=== PATIENT | male | born 1960 | race Caucasian/White ===

== ENCOUNTER 2025-05-31 10:33 | Inpatient (IN) ==
--- NOTE | 2025-05-31 11:07 | Emergency Department Note ---
Impression & Plan DKA (diabetic ketoacidosis), Cellulitis, Diabetic ulcer of lower leg, Acute hyperkalemia, Acute alteration in mental status ED Provider Note NAME: BRIAN DHILLON Sr AGE: 65 SEX: M : 1960 ARRIVES VIA: Ambulance INFORMANT: Patient, ED PROVIDER(S): Lars Young DO CHIEF COMPLAINT: Elevated blood sugar HPI: The patient is a 65-year-old male who presented to the emergency department for an evaluation of elevated blood sugar. The patient is currently at a retirement. The patient was noted to have elevated blood sugar. He does take insulin for diabetes. The patient is currently being treated for a left leg fracture. He has a wound on this leg as well. The patient denies having any fever nausea or vomiting. The patient reportedly did have some confusion as well. ROS: See above HPI for pertinent positives & negatives. A total of 10 systems reviewed and were otherwise negative. PAST MEDICAL HISTORY: See Below PAST SURGICAL HISTORY: See Below FAMILY HISTORY: See Below SOCIAL HISTORY: See Below HOME MEDICATIONS: See Below ALLERGIES: See Below VITALS: See Below PHYSICAL EXAMINATION: GENERAL: The patient is awake to verbal commands. He does try to fall asleep rather quickly. EYES: The conjunctivae are clear. The pupils are round and reactive. EARS, NOSE, MOUTH AND THROAT: The nose is without any evidence of any deformity. Mucous membranes are dry. NECK: The neck is nontender and supple. RESPIRATORY: Normal respiratory effort is noted there is no evidence of wheezing rhonchi or rales CARDIOVASCULAR: Regular rate and rhythm noted there no murmurs rubs or gallops normal S1 normal S2. GASTROINTESTINAL: The abdomen is soft and nondistended. There is no tenderness guarding or rigidity elicited. Pedal edema was noted bilaterally. There is erythema MUSCULOSKELETAL/EXTREMITIES: There is no evidence of gross deformity full range of motion is noted in the hips and shoulders. SKIN: No wound dressing on the left leg. There is no crepitus. NEUROLOGIC: Patient is awake and oriented to person place but not time. Strength was symmetric but diminished. MEDICAL DECISION MAKING: The patient is a 65-year-old male who presented to the emergency department from his note. The patient had been noted to have elevated blood sugar. The patient was treated with IV fluids in the emergency department. He was also treated with IV insulin. The patient was found have an ulcer on his lower leg. I do feel this could be the cause of an infection that could be leading to the patient's DKA. He was ordered cultures and ordered antibiotics in emergency department. He was also found have an elevated potassium. I discussed the patient's condition with the on-call [facility] hospitalist. They have agreed to evaluate the patient in the emergency department for further management and disposition. Triage Nursing notes reviewed. Prior medical records reviewed Vital Signs: reviewed and remarkable for tachycardia. Differential diagnosis: Infection, hypoglycemia, electrolyte abnormalities, overdose, toxicologic, cardiac sources, intracerebral event, neurologic, trauma, as well as other pathologies. ER treatment provided: See below Diagnostics interpreted by me: ECG: EKG was obtained in the emergency department. My interpretation is sinus tachycardia at 115 bpm. There is no ectopy noted. Nonspecific ST and T wave abnormalities were noted. No previous tracing was available. Cardiac Monitoring: An order was placed for continuous cardiac monitoring. The monitor shows a rate of 110 bpm with sinus rhythm. Laboratory studies: As stated above and show below. Imaging studies: See below. Radiographic imaging was reviewed by myself Consultation(s): I discussed this case with Dr. Travis [facility] COURSE: Procedures: none Critical Care: I have personally spent greater than 35 minutes of critical care time in the direct management of this patient. This includes bedside care, interpretation of diagnostic studies, and testing, discussion with consultants, patient, and family members, and other required patient management activities. This 35 minutes is in excess of all separately billable procedures. Past Med/Surg History Problem List (Updated 05/31/25 @ 17:12 by Lars Young DO) Acute alteration in mental status (Acute) Acute hyperkalemia (Acute) Diabetic ulcer of lower leg (Acute) Cellulitis (Acute) DKA (diabetic ketoacidosis) (Acute) Hyperosmolar hyperglycemic state (HHS) Low testosterone Hypertension Hyperlipidemia Chronic pain Status post debridement of bone spur Type II diabetes mellitus, uncontrolled (Chronic) Diabetic ulcer of right great toe (Chronic) Surgical History Previous back surgery Family History Mother Uterine cancer Father Diabetes Social History Smoking Status: Never smoker Second Hand Exposure: No; Do You Dip or Chew Tobacco: No; Hx Alcohol Use: No Hx Substance Use: Yes Prescribed Medications: Marijuana Preferred Language: Nepali marital status: Single Current Living Situation: Alone current occupational status: unemployed Feels Safe at Home: Yes Diet: diabetic Do you think of yourself as: straight/heterosexual Gender Identity: Male Allergies Allergies Allergy/AdvReac Type Severity Reaction Status Date / Time cephalexin [From Keflex] Allergy Verified 09/17/23 08:13 duloxetine AdvReac Severe Verified 09/17/23 08:13 dulaglutide [From Trulicity] AdvReac Verified 09/17/23 08:13 empagliflozin AdvReac Verified 09/17/23 08:13 [From Jardiance] losartan AdvReac Verified 09/17/23 08:13 lisinopril AdvReac Uncoded 09/17/23 08:13 Home Meds Home Medications Medication Instructions Recorded Confirmed Insta-Glucose 1 applic buccal DAILY PRN 05/31/25 05/31/25 Hypoglycemia Milk of Magnesia 30 ml PO DAILY PRN Constipation 05/31/25 05/31/25 acetaminophen 325 mg tablet 650 mg PO Q6H PRN Mild Pain (Scale 05/31/25 05/31/25 Score 1-4) acetaminophen 325 mg tablet 650 mg PO Q6H PRN temp>101 05/31/25 05/31/25 allopurinol 100 mg tablet 100 mg PO DAILY 05/31/25 05/31/25 aspirin 81 mg chewable tablet 81 mg PO DAILY 05/31/25 05/31/25 atorvastatin 80 mg tablet 80 mg PO DAILY 05/31/25 05/31/25 bisacodyl 10 mg rectal suppository 10 mg LA DAILY PRN Constipation 05/31/25 05/31/25 (Dulcolax (bisacodyl)) capsaicin 0.1 % topical cream 1 applic topical .DAILY FOR 10 DAYS 05/31/25 05/31/25 carisoprodol 350 mg tablet (Soma) 350 mg PO Q6H PRN muscle pain 05/31/25 05/31/25 clonidine 0.2 mg/24 hr weekly 0.2 mg transdermal .Q Sunday05/31/25 05/31/25 transdermal patch colchicine 0.6 mg tablet 0.6 mg PO Q12H PRN gout flare 05/31/25 05/31/25 duloxetine 20 mg capsule,delayed 20 mg PO DAILY 05/31/25 05/31/25 release finasteride 5 mg tablet 5 mg PO DAILY 05/31/25 05/31/25 furosemide 40 mg tablet 40 mg PO DAILY 05/31/25 05/31/25 gabapentin 800 mg tablet 800 mg PO BID 05/31/25 05/31/25 (Neurontin) glucagon 1 mg injection kit 1 mg IM DAILY PRN Hypoglycemia 05/31/25 05/31/25 insulin glargine 100 unit/mL (3 10 unit subcut DAILY 05/31/25 05/31/25 mL) subcutaneous pen (Lantus Solostar U-100 Insulin) magnesium oxide 500 mg capsule 400 mg PO DAILY 05/31/25 05/31/25 metformin 1,000 mg tablet 1,000 mg PO Q12 05/31/25 05/31/25 metoprolol succinate 25 mg 25 mg PO DAILY 05/31/25 05/31/25 tablet,extended release 24 hr prednisone 10 mg tablet 10 mg PO .DAILY FOR 4 DAYS 05/31/25 05/31/25 quetiapine 25 mg tablet (Seroquel) 25 mg PO DAILY 05/31/25 05/31/25 quetiapine 25 mg tablet (Seroquel) 50 mg PO HS 05/31/25 05/31/25 repaglinide 2 mg tablet 1 mg PO .DAILY BEFORE MEALS 05/31/25 05/31/25 sennosides 8.6 mg-docusate sodium 1 tab-cap PO BID 05/31/25 05/31/25 50 mg tablet (Senna-S) sodium phosphates 19 gram-7 118 ml LA DAILY PRN Constipation 05/31/25 05/31/25 gram/118 mL enema (Enema) spironolactone 25 mg tablet 12.5 mg PO DAILY 05/31/25 05/31/25 tamsulosin 0.4 mg capsule 0.4 mg PO DAILY 05/31/25 05/31/25 tramadol 50 mg tablet 50 mg PO Q4H PRN Pain 05/31/25 05/31/25 Previous Rx's Medication Instructions Recorded blood-glucose meter #1 ea 05/12/21 lancets 30 gauge #100 ea 05/12/21 blood sugar diagnostic #400 ea 01/08/23 Results & Data (ED) Vital Signs Vital Signs - 24 hr 05/31/25 10:39 05/31/25 10:44 05/31/25 10:46 Temperature 36.8 C Temperature Source Oral Pulse Rate 115 H 115 H Pulse Rate [Apical] Pulse Rate from SpO2 Sensor 116 H Pulse Rhythm Regular Pulse Rhythm [Apical] Respiratory Rate 16 28 H Respiratory Effort / Characteristics Non-Labored Spontaneous Respiratory Depth Normal Respiratory Pattern Regular Blood Pressure 134/94 111/84 Blood Pressure [Right Arm] Blood Pressure Mean 105 93 Blood Pressure Mean [Right Arm] Blood Pressure Position [Right Arm] Pulse Oximetry 100 100 Oxygen Delivery Method Nasal Cannula Oxygen Flow Rate 2 Sepsis Recent Fever Within 48 Hours Yes Sepsis New/Unexplained Change in Mental Status Yes Sepsis Action Taken by Nursing Physician Notified 05/31/25 11:00 05/31/25 11:00 05/31/25 11:00 Temperature 36.8 C Temperature Source Oral Pulse Rate 114 H Pulse Rate [Apical] 114 H Pulse Rate from SpO2 Sensor Pulse Rhythm Regular Pulse Rhythm [Apical] Regular Respiratory Rate 25 H 25 H Respiratory Effort / Characteristics Non-Labored Spontaneous Respiratory Depth Normal Respiratory Pattern Regular Blood Pressure 129/94 Blood Pressure [Right Arm] 129/94 Blood Pressure Mean 107 Blood Pressure Mean [Right Arm] 105 Blood Pressure Position [Right Arm] Pulse Oximetry 100 100 Oxygen Delivery Method Nasal Cannula Nasal Cannula Oxygen Flow Rate 2 Sepsis Recent Fever Within 48 Hours Sepsis New/Unexplained Change in Mental Status Sepsis Action Taken by Nursing 05/31/25 11:13 05/31/25 11:25 05/31/25 11:30 Temperature Temperature Source Pulse Rate 114 H 114 H Pulse Rate [Apical] 114 H Pulse Rate from SpO2 Sensor Pulse Rhythm Pulse Rhythm [Apical] Respiratory Rate 20 25 H Respiratory Effort / Characteristics Non-Labored Respiratory Depth Normal Respiratory Pattern Blood Pressure 131/97 Blood Pressure [Right Arm] 129/94 Blood Pressure Mean 108 Blood Pressure Mean [Right Arm] 105 Blood Pressure Position [Right Arm] Pulse Oximetry 100 100 Oxygen Delivery Method Room Air Nasal Cannula Oxygen Flow Rate 2 Sepsis Recent Fever Within 48 Hours Sepsis New/Unexplained Change in Mental Status Sepsis Action Taken by Nursing 05/31/25 12:06 05/31/25 12:30 05/31/25 14:00 Temperature Temperature Source Pulse Rate 109 H 109 H Pulse Rate [Apical] 110 H Pulse Rate from SpO2 Sensor 109 H Pulse Rhythm Pulse Rhythm [Apical] Regular Respiratory Rate 17 26 H 14 Respiratory Effort / Characteristics Non-Labored Spontaneous Respiratory Depth Normal Respiratory Pattern Regular Blood Pressure 122/91 Blood Pressure [Right Arm] 129/91 Blood Pressure Mean 102 Blood Pressure Mean [Right Arm] 103 Blood Pressure Position [Right Arm] Semi-fowlers Pulse Oximetry 100 100 100 Oxygen Delivery Method Nasal Cannula Nasal Cannula Oxygen Flow Rate 2 2 Sepsis Recent Fever Within 48 Hours Sepsis New/Unexplained Change in Mental Status Sepsis Action Taken by Usp Medications Current Medication List: was personally reviewed by me Laboratory Data Attestation: I reviewed the patient's lab results. 05/31/25 10:45 05/31/25 10:45 Lab Results 05/31/25 05/31/25 05/31/25 Range/Units 10:39 10:45 11:20 WBC 7.81 (4.8-10.8) K/ul RBC 4.57 L (4.70-6.10) M/uL Hgb 12.8 L (14.0-18.0) g/dl Hct 41.1 L (42.0-52.0) % MCV 89.9 (80.0-100.0) fL MCH 28.0 (25.0-34.0) pg MCHC 31.1 L (32.0-36.0) g/dL RDW Std Deviation 59.5 H (36.4-46.3) fL RDW Coeff of Celina 18.5 H (11.5-14.5) % Plt Count 284 (130-400) K/uL MPV 11.6 (9.4-12.4) fL Immature Gran % (Auto) 0.5 % Neut % (Auto) 78.4 % Lymph % (Auto) 13.3 % [place] % (Auto) 7.7 % Eos % (Auto) 0.0 % Baso % (Auto) 0.1 % Neut # (Auto) 6.12 (1.40-6.50) K/uL Lymph # (Auto) 1.04 L (1.20-3.40) K/uL [place] # (Auto) 0.60 H (0.11-0.59) K/uL Eos # (Auto) 0.00 (0.00-0.50) K/uL Baso # (Auto) 0.01 (0.00-0.20) K/uL Immature Gran # (Auto) 0.04 (0.01-0.20) K/uL ESR 30 H (0-20) mm/hr VBG pH 7.36 (7.36-7.41) VBG pCO2 40 (38-50) mmHg VBG pO2 30 mmHg VBG HCO3 23 mmol/L VBG O2 Saturation < 60.0 % VBG Base Excess -2.7 mEq/L Sodium 132 L (136-145) mmol/L Potassium 5.7 H (3.5-5.1) mmol/L Chloride 92 L (98-107) mmol/L Carbon Dioxide 22 (21-32) mmol/L Anion Gap 18 H (3-11) BUN 42 H (6-23) mg/dl Creatinine 1.21 (0.6-1.4) mg/dl Est Cr Clr Drug Dosing 69.7 ml/min eGFR 66.86 BUN/Creatinine Ratio 34.7 H (10-20) Glucose 564 H* (70-99(Fasting)) mg/dl POC Glucose 526 H* (70-99) mg/dl Lactate 5.2 H* (0.4-2.0) mmol/L Calcium 9.4 (8.6-10.3) mg/dl Magnesium 2.1 (1.7-2.4) mg/dl Total Bilirubin 1.2 H (0.2-1.0) mg/dl AST 68 H (13-39) U/L ALT 57 H (7-52) U/L Alkaline Phosphatase 107 H (34-104) U/L Ammonia 35.0 (18-72) umol/L Troponin I High Sens 50.1 H* (0-20) pg/ml C-Reactive Protein 4.50 H (0-0.5) mg/dl Total Protein 7.4 (6.0-8.3) gm/dl Albumin 3.6 (3.4-5.0) gm/dl Globulin 3.8 (2.5-4.0) gm/dl Albumin/Globulin Ratio 0.9 (0.9-2) Procalcitonin 0.37 (0-0.5) ng/ml TSH 3.371 (0.300-4.500) uIu/ml 05/31/25 05/31/25 05/31/25 Range/Units 12:06 12:36 13:21 WBC (4.8-10.8) K/ul RBC (4.70-6.10) M/uL Hgb (14.0-18.0) g/dl Hct (42.0-52.0) % MCV (80.0-100.0) fL MCH (25.0-34.0) pg MCHC (32.0-36.0) g/dL RDW Std Deviation (36.4-46.3) fL RDW Coeff of Cleina (11.5-14.5) % Plt Count (130-400) K/uL MPV (9.4-12.4) fL Immature Gran % (Auto) % Neut % (Auto) % Lymph % (Auto) % [place] % (Auto) % Eos % (Auto) % Baso % (Auto) % Neut # (Auto) (1.40-6.50) K/uL Lymph # (Auto) (1.20-3.40) K/uL [place] # (Auto) (0.11-0.59) K/uL Eos # (Auto) (0.00-0.50) K/uL Baso # (Auto) (0.00-0.20) K/uL Immature Gran # (Auto) (0.01-0.20) K/uL ESR (0-20) mm/hr VBG pH (7.36-7.41) VBG pCO2 (38-50) mmHg VBG pO2 mmHg VBG HCO3 mmol/L VBG O2 Saturation % VBG Base Excess mEq/L Sodium (136-145) mmol/L Potassium (3.5-5.1) mmol/L Chloride (98-107) mmol/L Carbon Dioxide (21-32) mmol/L Anion Gap (3-11) BUN (6-23) mg/dl Creatinine (0.6-1.4) mg/dl Est Cr Clr Drug Dosing ml/min eGFR BUN/Creatinine Ratio (10-20) Glucose (70-99(Fasting)) mg/dl POC Glucose 580 H* 561 H* (70-99) mg/dl Lactate (0.4-2.0) mmol/L Calcium (8.6-10.3) mg/dl Magnesium (1.7-2.4) mg/dl Total Bilirubin (0.2-1.0) mg/dl AST (13-39) U/L ALT (7-52) U/L Alkaline Phosphatase (34-104) U/L Ammonia (18-72) umol/L Troponin I High Sens 47.8 H (0-20) pg/ml C-Reactive Protein (0-0.5) mg/dl Total Protein (6.0-8.3) gm/dl Albumin (3.4-5.0) gm/dl Globulin (2.5-4.0) gm/dl Albumin/Globulin Ratio (0.9-2) Procalcitonin (0-0.5) ng/ml TSH (0.300-4.500) uIu/ml 05/31/25 Range/Units 13:31 WBC (4.8-10.8) K/ul RBC (4.70-6.10) M/uL Hgb (14.0-18.0) g/dl Hct (42.0-52.0) % MCV (80.0-100.0) fL MCH (25.0-34.0) pg MCHC (32.0-36.0) g/dL RDW Std Deviation (36.4-46.3) fL RDW Coeff of Celina (11.5-14.5) % Plt Count (130-400) K/uL MPV (9.4-12.4) fL Immature Gran % (Auto) % Neut % (Auto) % Lymph % (Auto) % [place] % (Auto) % Eos % (Auto) % Baso % (Auto) % Neut # (Auto) (1.40-6.50) K/uL Lymph # (Auto) (1.20-3.40) K/uL [place] # (Auto) (0.11-0.59) K/uL Eos # (Auto) (0.00-0.50) K/uL Baso # (Auto) (0.00-0.20) K/uL Immature Gran # (Auto) (0.01-0.20) K/uL ESR (0-20) mm/hr VBG pH (7.36-7.41) VBG pCO2 (38-50) mmHg VBG pO2 mmHg VBG HCO3 mmol/L VBG O2 Saturation % VBG Base Excess mEq/L Sodium (136-145) mmol/L Potassium (3.5-5.1) mmol/L Chloride (98-107) mmol/L Carbon Dioxide (21-32) mmol/L Anion Gap (3-11) BUN (6-23) mg/dl Creatinine (0.6-1.4) mg/dl Est Cr Clr Drug Dosing ml/min eGFR BUN/Creatinine Ratio (10-20) Glucose (70-99(Fasting)) mg/dl POC Glucose (70-99) mg/dl Lactate 4.1 H* (0.4-2.0) mmol/L Calcium (8.6-10.3) mg/dl Magnesium (1.7-2.4) mg/dl Total Bilirubin (0.2-1.0) mg/dl AST (13-39) U/L ALT (7-52) U/L Alkaline Phosphatase (34-104) U/L Ammonia (18-72) umol/L Troponin I High Sens (0-20) pg/ml C-Reactive Protein (0-0.5) mg/dl Total Protein (6.0-8.3) gm/dl Albumin (3.4-5.0) gm/dl Globulin (2.5-4.0) gm/dl Albumin/Globulin Ratio (0.9-2) Procalcitonin (0-0.5) ng/ml TSH (0.300-4.500) uIu/ml Administered Medications Insulin Human Regular 250 (units/ Sodium Chloride) 250 mls @ 15.8 mls/hr IV .[id number] [facility]; Protocol Stop: 06/30/25 11:44 Last Titration: 05/31/25 16:29 Dose: 15.8 units/hr, 15.8 mls/hr Documented By: TRINIDAD Co-signed By: BOLA Titration: 05/31/25 15:32 Dose: 13.2 units/hr, 13.2 mls/hr Documented By: DOROTA Co-signed By: TEETEE Titration: 05/31/25 14:30 Dose: 11 units/hr, 11 mls/hr Documented By: FG Co-signed By: TEETEE Admin: 05/31/25 13:29 Dose: 9.2 units/hr, 9.2 mls/hr Documented By: DOROTA Co-signed By: TEETEE Discontinued Medications Sodium Chloride (Nss) 500 mls @ 999 mls/hr IV .Q31M DAO Stop: 05/31/25 11:30 Last Infusion: 05/31/25 12:41 Dose: Infused Documented By: Admin: 05/31/25 11:34 Dose: 999 mls/hr Documented By: DOROTA Sodium Chloride (Nss) 1,000 mls @ 999 mls/hr IV .Q1H1M ONE Stop: 05/31/25 12:39 Last Infusion: 05/31/25 13:44 Dose: Infused Documented By: Admin: 05/31/25 12:11 Dose: 999 mls/hr Documented By: DOROTA Piperacillin Sod/Tazobactam Sod (Zosyn) 4.5 gm in 100 mls @ 200 mls/hr IV NOW ONE; Protocol Stop: 05/31/25 12:08 Last Infusion: 05/31/25 13:44 Dose: Infused Documented By: Admin: 05/31/25 12:12 Dose: 200 mls/hr Documented By: DOROTA Sodium Chloride (Nss) 1,000 mls @ 999 mls/hr IV .Q1H1M ONE Stop: 05/31/25 12:45 Last Infusion: 05/31/25 15:28 Dose: Infused Documented By: Admin: 05/31/25 12:13 Dose: 999 mls/hr Documented By: DOROTA Insulin Human Regular (Novolin-R Bolus From Bag) 9.2 units IV ONE ONE Stop: 05/31/25 12:16 Last Admin: 05/31/25 13:26 Dose: 9.2 units Documented By: DOROTA Co-signed By: TEETEE Insulin Pump (Dc Home Insulin Pump) 1 each N/A NOW STA Stop: 05/31/25 11:46 Last Admin: 05/31/25 12:28 Dose: Not Given Documented By: DOROTA Ioversol (Optiray 320 100ml) 93 ml IV ONCE ONE Stop: 05/31/25 15:59 Last Admin: 05/31/25 15:58 Dose: 93 ml Documented By: MARIXA Miscellaneous (Stat Iv Infusion Titration Per Protocol) 1 each N/A NOW STA Stop: 05/31/25 11:46 Last Admin: 05/31/25 12:41 Dose: Not Given Documented By: TEETEE Ondansetron HCl (Ondansetron Inj 2 Mg/Ml 2 Ml Vial) 4 mg IV NOW STA Stop: 05/31/25 11:26 Last Admin: 05/31/25 11:33 Dose: 4 mg Documented By: DOROTA Imaging Data Attestation: I personally reviewed and interpreted this imaging study as follows: My Impression: 1 view chest x-ray was obtained in the emergency department. My interpretation is no free air, increased interstitial density noted,, final report below. Radiologist's Impression: Chest X-Ray 05/31/25 10:50 Clinical History: Weakness Technique: A frontal view of the chest was obtained Findings: There is left upper lobe interstitial prominence and there is also mild left lower lobe linear and patchy opacity, concerning for pneumonia. There is also mild diffuse interstitial prominence. The heart is mildly enlarged. No definite pleural effusion or pneumothorax is seen. No fracture is noted. No foreign body is seen Impression: 1. Possible combination of pulmonary vascular congestion and left lung pneumonia 2. Mild cardiomegaly ACT 112: Positive. There are findings on this exam that require communication between the performing entity and the patient following Patient Test Result Information Act ([place] ACT 112) guidelines. Electronically signed by Anshul Howard 05-31-2025 12:[address] 05/31/25 10:55 Clinical History: Altered mental status Technique: Axial computed tomography images were obtained of the brain without intravenous contrast. Findings: There is diffuse cerebral atrophy, within expected limits for the patient's age. Areas of decreased attenuation are seen within the periventricular white matter, likely representing chronic small vessel ischemic disease. There is no definite sign of acute or old infarction. No intracranial hemorrhage is evident. No definite mass lesion is seen on this noncontrast examination. There is no midline shift or other form of herniation. No hydrocephalus is seen. No fracture is identified. The orbits and the visualized paranasal sinuses appear unremarkable. The mastoid air cells appear clear. Impression: 1. Cerebral atrophy and chronic small vessel ischemic disease 2. Otherwise unremarkable noncontrast CT of the brain Electronically signed by Anshul Howard 05-31-2025 13:09 PM Tibia/Fibula X-Ray 05/31/25 10:56 Clinical History: Swelling 4 views of the left lower leg are submitted for review. Findings: No fracture or dislocation is seen. There is patellofemoral compartment predominant degenerative joint disease of the left knee. No other osseous abnormality is identified. There are no radiopaque foreign bodies. Impression: 1. No definite fracture 2. Left knee osteoarthritis Electronically signed by Anshul Howard 05-31-2025 12:39 PM Discharge Plan Visit Data Chief Complaint: Illness Stated Complaint: HYPERGLYCEMIA ED Provider: Lars Young Discharge Problem: DKA (diabetic ketoacidosis), Cellulitis, Diabetic ulcer of lower leg, Acute hyperkalemia, Acute alteration in mental status Patient Disposition: Admitted As Inpatient Condition: Fair Discharge Instructions Interventions: ED Discharge Assessment Last Done: 05/31/25 15:49
[2025-05-31 11:11] LABS: Base Excess VBG -2.7 mEq/L; HCO3 VBG 23 mmol/L; Oxygen Saturation VBG < 60.0 %; PCO2 VBG 40 mmHg (38-50); PO2 VBG 30 mmHg; pH VBG 7.36 (7.36-7.41)
[2025-05-31 11:14] LABS: Hematocrit (blood only) 41.1 % (42.0-52.0); Hemoglobin 12.8 g/dl (14.0-18.0); Immature Granulocytes # (auto) 0.04 K/uL (0.01-0.20); Immature Granulocytes % (auto) 0.5 %; Mean Corpuscular Hemoglobin 28.0 pg (25.0-34.0); Mean Corpuscular Volume 89.9 fL (80.0-100.0); Platelet Count 284 K/uL (130-400); RDW Standard Deviation 59.5 fL (36.4-46.3); Red Blood Count 4.57 M/uL (4.70-6.10); White Blood Count 7.81 K/ul (4.8-10.8)
[2025-05-31] MEDS: ONDANSETRON INJ 2 MG/ML 2 ML VIAL IV STA (11:33)
[2025-05-31] MEDS: SODIUM CHLORIDE 0.9% 500 ML IV SCH (11:34)
[2025-05-31 11:40] LABS: Alanine Aminotransferase 57.0 U/L (7-52); Albumin Globulin Ratio 0.9 (0.9-2); Alkaline Phosphatase 107.0 U/L (34-104); Anion Gap 18.0 (3-11); Bilirubin,Total 1.2 mg/dl (0.2-1.0); Blood Urea Nitrogen 42.0 mg/dl (6-23); Calcium 9.4 mg/dl (8.6-10.3); Carbon Dioxide 22.0 mmol/L (21-32); Chloride 92.0 mmol/L (98-107); Creatinine Clr Calc Pharmacy 69.7 ml/min; Globulin 3.8 gm/dl (2.5-4.0); Glucose 564.0 mg/dl (70-99(Fasting)); Magnesium 2.1 mg/dl (1.7-2.4); Potassium 5.7 mmol/L (3.5-5.1); Sodium 132.0 mmol/L (136-145); Total Protein 7.4 gm/dl (6.0-8.3)
[2025-05-31] MEDS ORDERED: GLUCOSE 40% GEL 15 GM TUBE PO PRN (11:45)
[2025-05-31] MEDS ORDERED: GLUCAGON FOR INJ 1 MG VIAL SQ PRN (11:45)
[2025-05-31] MEDS ORDERED: GLUCOSE 10 TAB/TUBE PO PRN (11:45)
[2025-05-31] MEDS ORDERED: INSULIN REGULAR 250 UNITS in SODIUM CHLORIDE 0.9% 247.5 ML IV SCH ×2 (11:45→16:26)
[2025-05-31 11:51] LABS: Thyroid Stimulating Hormone 3.371 uIu/ml (0.300-4.500)
[2025-05-31] MEDS: SODIUM CHLORIDE 0.9% 1,000 ML IV ONE ×2 (12:11→12:13)
[2025-05-31] MEDS: PIPERACILLIN/TAZOBACTAM 4.5 GM/100 ML BAG IV ONE (12:12)
[2025-05-31] MEDS: DC HOME INSULIN PUMP STA (12:28)
--- NOTE | 2025-05-31 12:39 | XRay Report ---
Clinical History: Swelling 4 views of the left lower leg are submitted for review. Findings: No fracture or dislocation is seen. There is patellofemoral compartment predominant degenerative joint disease of the left knee. No other osseous abnormality is identified. There are no radiopaque foreign bodies. Impression: 1. No definite fracture 2. Left knee osteoarthritis Electronically signed by Anshul Howard 05-31-2025 12:39 PM
--- NOTE | 2025-05-31 12:40 | XRay Report ---
Clinical History: Weakness Technique: A frontal view of the chest was obtained Findings: There is left upper lobe interstitial prominence and there is also mild left lower lobe linear and patchy opacity, concerning for pneumonia. There is also mild diffuse interstitial prominence. The heart is mildly enlarged. No definite pleural effusion or pneumothorax is seen. No fracture is noted. No foreign body is seen Impression: 1. Possible combination of pulmonary vascular congestion and left lung pneumonia 2. Mild cardiomegaly ACT 112: Positive. There are findings on this exam that require communication between the performing entity and the patient following Patient Test Result Information Act ([place] ACT 112) guidelines. Electronically signed by Anshul Howard 05-31-2025 12:40 PM
[2025-05-31] MEDS: STAT IV Infusion **Titration per Protocol STA (12:41)
--- NOTE | 2025-05-31 12:58 | History & Physical Report ---
Date of Service May 31, 2025 Assessment & Plan (1) Hypertension: (2) Hyperlipidemia: (3) Type II diabetes mellitus, uncontrolled: (4) Hyperosmolar hyperglycemic state (HHS): Plan 65 yo M with PMHx of DM II, HTN, HLD, chronic systolic heart failure, CKD, BPH, gout, GERD, emphysema, PVD sent to [facility] from [place] for the evaluation of elevated BG. Per scant documentation from facility, pt was recently being worked up for gout and was started on prednisone on 05/28 for 5 days (last dose to be on 06/01). He was then found to have urinary incontinence this morning as well as drowsiness. He was not able to articulate what was bothering him. He was similarly confused yesterday but his mentation improved. His BG this AM was 450 at the facility. In the ED, pt was found to have elevated potassium, BG in the 500s, A, elevated lactate to 5.2. Cr slight increase from 0.78 -> 1.21, BUN elevated 16 - > 42. Bicarb mild decrease to 22. Pt also noted to have abnormal LFTs as well as elevated troponin. He was found to have left lower extremity infected wound. He is started on zosyn in the ED. Pt is also started on insulin infusion. #HHS - admit to PCU - triggered by recent prednisone use along with necrotic wounds in his legs - check A1c - glycemic pharmacy consult - started on HHS protocol, IVF (monitor for volume overload), insulin infusion, manage electrolytes - UA pending #b/l LE necrotic wound #PVD - prior h/o MSSA and E faecalis diabetic foot ulcer - s/p 1 dose of zosyn in the ED, will continue at this time - cont aspirin - ID, vascular, and ortho consulted - wound care also consulted - CT b/l LE pending - arterial duplex ordered - BCx pending #Lactic acidosis - cont IVF, monitor for volume status - trend lactic acid #HTN #HLD #CHF - cont statin - cont clonidine, metoprolol - hold lasix and spironolactone in the setting of HHS and lactic acidosis #Gout - cont allopurinol #Anxiety / Depression - cont quetiapine and duloxetine #BPH - cont tamsulosin #DVT ppx: hep subq History of Present Illness Chief Complaint: Elevated blood glucose Primary Care Provider: Js Fordide 65 yo M with PMHx of DM II, HTN, HLD, chronic systolic heart failure, CKD, BPH, gout, GERD, emphysema, PVD sent to [facility] from [place] for the evaluation of elevated BG. Per scant documentation from facility, pt was recently being worked up for gout and was started on prednisone on 05/28 for 5 days (last dose to be on 06/01). He was then found to have urinary incontinence this morning as well as drowsiness. He was not able to articulate what was bothering him. He was similarly confused yesterday but his mentation improved. His BG this AM was 450 at the facility. In the ED, pt was found to have elevated potassium, BG in the 500s, A, elevated lactate to 5.2. Cr slight increase from 0.78 -> 1.21, BUN elevated 16 - > 42. Bicarb mild decrease to 22. Pt also noted to have abnormal LFTs as well as elevated troponin. He was found to have left lower extremity infected wound. He is started on zosyn in the ED. Pt is also started on insulin infusion. Allergies Allergy/AdvReac Type Severity Reaction Status Date / Time cephalexin [From Keflex] Allergy Verified 09/17/23 08:13 duloxetine AdvReac Severe Verified 09/17/23 08:13 dulaglutide [From Trulicity] AdvReac Verified 09/17/23 08:13 empagliflozin AdvReac Verified 09/17/23 08:13 [From Jardiance] losartan AdvReac Verified 09/17/23 08:13 lisinopril AdvReac Uncoded 09/17/23 08:13 Home Medications Medication Instructions Recorded Confirmed Type blood-glucose meter #1 ea 05/12/21 09/17/23 Rx lancets 30 gauge #100 ea 05/12/21 09/17/23 Rx blood sugar diagnostic #400 ea 01/08/23 09/17/23 Rx Insta-Glucose 1 applic buccal DAILY PRN 05/31/25 05/31/25 History Hypoglycemia Milk of Magnesia 30 ml PO DAILY PRN Constipation 05/31/25 05/31/25 History acetaminophen 325 mg tablet 650 mg PO Q6H PRN Mild Pain (Scale 05/31/25 05/31/25 History Score 1-4) acetaminophen 325 mg tablet 650 mg PO Q6H PRN temp>101 05/31/25 05/31/25 History allopurinol 100 mg tablet 100 mg PO DAILY 05/31/25 05/31/25 History aspirin 81 mg chewable tablet 81 mg PO DAILY 05/31/25 05/31/25 History atorvastatin 80 mg tablet 80 mg PO DAILY 05/31/25 05/31/25 History bisacodyl 10 mg rectal suppository 10 mg IA DAILY PRN Constipation 05/31/25 05/31/25 History (Dulcolax (bisacodyl)) capsaicin 0.1 % topical cream 1 applic topical .DAILY FOR 10 DAYS 05/31/25 05/31/25 History carisoprodol 350 mg tablet (Soma) 350 mg PO Q6H PRN muscle pain 05/31/25 05/31/25 History clonidine 0.2 mg/24 hr weekly 0.2 mg transdermal .Q Sunday05/31/25 05/31/25 History transdermal patch colchicine 0.6 mg tablet 0.6 mg PO Q12H PRN gout flare 05/31/25 05/31/25 History duloxetine 20 mg capsule,delayed 20 mg PO DAILY 05/31/25 05/31/25 History release finasteride 5 mg tablet 5 mg PO DAILY 05/31/25 05/31/25 History furosemide 40 mg tablet 40 mg PO DAILY 05/31/25 05/31/25 History gabapentin 800 mg tablet 800 mg PO BID 05/31/25 05/31/25 History (Neurontin) glucagon 1 mg injection kit 1 mg IM DAILY PRN Hypoglycemia 05/31/25 05/31/25 History insulin glargine 100 unit/mL (3 10 unit subcut DAILY 05/31/25 05/31/25 History mL) subcutaneous pen (Lantus Solostar U-100 Insulin) magnesium oxide 500 mg capsule 400 mg PO DAILY 05/31/25 05/31/25 History metformin 1,000 mg tablet 1,000 mg PO Q12 05/31/25 05/31/25 History metoprolol succinate 25 mg 25 mg PO DAILY 05/31/25 05/31/25 History tablet,extended release 24 hr prednisone 10 mg tablet 10 mg PO .DAILY FOR 4 DAYS 05/31/25 05/31/25 History quetiapine 25 mg tablet (Seroquel) 25 mg PO DAILY 05/31/25 05/31/25 History quetiapine 25 mg tablet (Seroquel) 50 mg PO HS 05/31/25 05/31/25 History repaglinide 2 mg tablet 1 mg PO .DAILY BEFORE MEALS 05/31/25 05/31/25 History sennosides 8.6 mg-docusate sodium 1 tab-cap PO BID 05/31/25 05/31/25 History 50 mg tablet (Senna-S) sodium phosphates 19 gram-7 118 ml IA DAILY PRN Constipation 05/31/25 05/31/25 History gram/118 mL enema (Enema) spironolactone 25 mg tablet 12.5 mg PO DAILY 05/31/25 05/31/25 History tamsulosin 0.4 mg capsule 0.4 mg PO DAILY 05/31/25 05/31/25 History tramadol 50 mg tablet 50 mg PO Q4H PRN Pain 05/31/25 05/31/25 History Past Med/Surg History Problem List (Updated 05/31/25 @ 15:24 by Carmen Travis MD) Hyperosmolar hyperglycemic state (HHS) Low testosterone Hypertension Hyperlipidemia Chronic pain Status post debridement of bone spur Type II diabetes mellitus, uncontrolled (Chronic) Diabetic ulcer of right great toe (Chronic) Surgical History Previous back surgery Family History Mother Uterine cancer Father Diabetes Social History Smoking Status: Never smoker Second Hand Exposure: No; Do You Dip or Chew Tobacco: No; Hx Alcohol Use: No Hx Substance Use: Yes Prescribed Medications: Marijuana Preferred Language: Gabonese marital status: Single Current Living Situation: Alone current occupational status: unemployed Feels Safe at Home: Yes Diet: diabetic Do you think of yourself as: straight/heterosexual Gender Identity: Male Review of Systems Review of Systems: unable to obtain comprehensive ROS due to mental status Physical Exam Physical Exam: Gen: no acute distress, lying in bed comfortable HEENT: NC/AT, MMM Lungs: nonlabored breathing, CTAB CVS: s1s2nl, tachycardic Abd: nl bowel sounds, soft, NT / ND : no fang Ext: no edema, dusky feet, bl posterior leg necrotic wounds Neuro: drowsy Psych: calm, cooperative Results & Data Results & Data Vital Signs (Past 12 Hours) Vital Signs Temp Pulse Pulse Resp BP BP Pulse Ox 05/31/25 11:25 114 H 20 129/94 100 05/31/25 11:13 114 H 05/31/25 11:00 114 H 25 H 100 05/31/25 11:00 36.8 C 114 H 25 H 129/94 100 05/31/25 10:46 36.8 C 115 H 28 H 111/84 100 O2 Del Method O2 Flow Rate 05/31/25 11:25 Room Air 05/31/25 11:13 05/31/25 11:00 Nasal Cannula 05/31/25 11:00 Nasal Cannula 2 05/31/25 10:46 Nasal Cannula 2 PG Care Time/CCT Total # of Minutes Spent Total Time Spent with Patient: Total time spent is greater than 50% in coordination of care (as documented) at patient's floor/unit and/or counseling patient: Coding Level of Care Code 80304 INT INP/OBS CARE 3/75MIN Diagnoses Hypertension I10 Hyperlipidemia E78.5 Type II diabetes mellitus, uncontrolled E11.65 Hyperosmolar hyperglycemic state (HHS) E11.00
--- NOTE | 2025-05-31 13:10 | CT Scan Report ---
Clinical History: Altered mental status Technique: Axial computed tomography images were obtained of the brain without intravenous contrast. Findings: There is diffuse cerebral atrophy, within expected limits for the patient's age. Areas of decreased attenuation are seen within the periventricular white matter, likely representing chronic small vessel ischemic disease. There is no definite sign of acute or old infarction. No intracranial hemorrhage is evident. No definite mass lesion is seen on this noncontrast examination. There is no midline shift or other form of herniation. No hydrocephalus is seen. No fracture is identified. The orbits and the visualized paranasal sinuses appear unremarkable. The mastoid air cells appear clear. Impression: 1. Cerebral atrophy and chronic small vessel ischemic disease 2. Otherwise unremarkable noncontrast CT of the brain Electronically signed by Anshul Howard 05-31-2025 13:09 PM
[2025-05-31] MEDS: NovoLIN-R BOLUS FROM BAG IV ONE (13:26)
[2025-05-31] MEDS: INSULIN REGULAR 250 UNITS in SODIUM CHLORIDE 0.9% 247.5 ML IV SCH (13:29)
[2025-05-31] MEDS: OPTIRAY 320 100ml IV ONE (15:58)
[2025-05-31] MEDS ORDERED: PHARMACY GLYCEMIC MGMT CONSULT PRN (16:26)
[2025-05-31] MEDS ORDERED: STAT IV Infusion **Titration per Protocol STA (16:26)
[2025-05-31] MEDS ORDERED: INSULIN ASPART PER UNIT CHARGE SC SCH (16:30)
--- NOTE | 2025-05-31 17:17 | CT Scan Report ---
CT RIGHT FEMUR WITH CONTRAST: HISTORY: Pain. Infection. Concern for abscess TECHNIQUE: CT of the right femur was obtained with intravenous contrast. Coronal and sagittal reformats were created. IV CONTRAST: 100 mL of OMNIPAQUE 300 COMPARISON: FINDINGS: No acute fracture is identified. Extensive subcutaneous edema. There is a small fluid layering along the fascia just lateral to the quadriceps muscle. No organized, drainable fluid collection is identified. No soft tissues gas is identified. IMPRESSION: Diffuse subcutaneous edema. Small fluid layering along the fascial planes of the quadriceps muscle. No organized/drainable fluid collection is identified to suggest an abscess. No soft tissues gas is identified. Electronically signed by Frederic Stratton 05-31-2025 5:16 PM
--- NOTE | 2025-05-31 17:18 | CT Scan Report ---
CT LEFT TIBIA-FIBULA WITH CONTRAST: HISTORY: Pain. Infection. Concern for abscess TECHNIQUE: CT of the left tibia-fibula was obtained with intravenous contrast. Coronal and sagittal reformats were created. IV CONTRAST: 100 mL of OMNIPAQUE 300 COMPARISON: FINDINGS: No acute fracture is identified. Advanced tricompartment osteoarthritis of the left knee. Extensive subcutaneous edema. There is a small fluid layering along the fascia planes posteriorly No organized, drainable fluid collection is identified No soft tissues gas is identified. Scattered soft tissue wounds. IMPRESSION: Diffuse subcutaneous edema. Small fluid layering along the fascial planes posteriorly. No organized/drainable fluid collection is identified to suggest an abscess. No soft tissues gas is identified. Electronically signed by Frederic Stratton 05-31-2025 5:16 PM
[2025-05-31 17:21] LABS: Anion Gap 13.0 (3-11); Blood Urea Nitrogen 41.0 mg/dl (6-23); Calcium 8.6 mg/dl (8.6-10.3); Carbon Dioxide 21.0 mmol/L (21-32); Chloride 100.0 mmol/L (98-107); Creatinine Clr Calc Pharmacy 77.4 ml/min; Glucose 363.0 mg/dl (70-99(Fasting)); Magnesium 1.8 mg/dl (1.7-2.4); Potassium 4.3 mmol/L (3.5-5.1); Sodium 134.0 mmol/L (136-145)
--- NOTE | 2025-05-31 17:39 | Electrocardiogram Report ---
Test Reason : Blood Pressure : */* mmHG Vent. Rate : 115 BPM Atrial Rate : 115 BPM P-R Int : 156 ms QRS Dur : 94 ms QT Int : 356 ms P-R-T Axes : 57 -50 82 degrees QTcB Int : 492 ms Sinus tachycardia Possible Left atrial enlargement Incomplete right bundle branch block Left anterior fascicular block Nonspecific T wave abnormality Abnormal ECG No previous ECGs available Confirmed by Андрей Wisdom ([id number]) on 05/31/2025 5:39:07 PM Referred By: Confirmed By: Андрей Wisdom
[2025-05-31] MEDS: PIPERACILLIN/TAZOBACTAM 4.5 GM/100 ML BAG IV SCH (18:04)
[2025-05-31] MEDS: HHS GOAL RANGE 250-350 mg/dl ONE (18:05)
[2025-05-31] MEDS: INSULIN ASPART PER UNIT CHARGE SC SCH (18:05)
[2025-05-31] MEDS: PLASMA-LYTE A 1,000 ML IV SCH (18:06)
[2025-05-31 18:22] LABS: Appearance Urine Clear (Clear); Bacteria Urine Automated None Seen (None Seen); Cast Urine Automated >20 /lpf (0-2); Glucose Urine UA 3+ (Negative); RBC Urine Automated 0-2 /hpf (0-2); WBC Urine Automated 0-5 /hpf (0-5)
[2025-05-31] MEDS: POTASSIUM CHLORIDE 40 MEQ in D5W AND NSS 1,000 ML IV SCH (19:59)
--- NOTE | 2025-05-31 20:02 | Ultrasound Report ---
BIALTERAL LOWER EXTREMITY ARTERIAL DUPLEX ULTRASOUND INDICATION: Pain TECHNIQUE: Ultrasound of the bilateral lower extremity arteries was performed. A duplex Doppler study was performed, consisting of integrated 2-dimensional (2D) real-time imaging: Color flow Doppler and Doppler spectral analysis. COMPARISON: None FINDINGS: RIGHT: Blood flow velocities are within normal limits. Advanced atherosclerotic disease involving the infrapopliteal arteries resulting in severe luminal stenoses Blood flow velocities and waveforms are as follows: ONLINE EDUCATION MANAGER: 51.8 cm/s, triphasic Profunda femoris: 49.6 cm/s, triphasic Proximal SFA: 45.6 cm/s, triphasic Mid SFA: 53.1 cm/s, triphasic Distal SFA: 70.5 cm/s, triphasic Popliteal: 36.2 cm/s, triphasic KRYSTAL: 13.8 cm/s, monophasic Peroneal artery: 20.8 cm/s, monophasic DRILL HAND: 21.2 cm/s, monophasic DPA: 6.2 cm/s, monophasic LEFT: Blood flow velocities are within normal limits. Advanced atherosclerotic disease involving the infrapopliteal arteries resulting in severe luminal stenoses. Additional moderate atherosclerotic involvement of the mid to distal superficial femoral artery. Blood flow velocities and waveforms are as follows: ONLINE EDUCATION MANAGER: 51.8 cm/s, triphasic Profunda femoris: 42.6 cm/s, triphasic Proximal SFA: 53.5 cm/s, triphasic Mid SFA: 55.1 cm/s, triphasic Distal SFA: 43.0 cm/s, triphasic Popliteal: 44.7 cm/s, triphasic KRYSTAL: 61.3 cm/s, monophasic Peroneal artery: 22.3 cm/s, monophasic DRILL HAND: 16.1 cm/s, monophasic DPA: 17.4 cm/s, monophasic IMPRESSION: Bilaterally, there is advanced atherosclerotic disease involving the infrapopliteal arteries resulting in severe luminal stenoses. There is additional moderate atherosclerotic involvement of the LEFT mid to distal superficial femoral artery. Electronically signed by Frederic Stratton 05-31-2025 8:01 PM
[2025-05-31 20:51] LABS: Anion Gap 13.0 (3-11); Blood Urea Nitrogen 38.0 mg/dl (6-23); Calcium 8.8 mg/dl (8.6-10.3); Carbon Dioxide 23.0 mmol/L (21-32); Chloride 102.0 mmol/L (98-107); Creatinine Clr Calc Pharmacy 75.3 ml/min; Glucose 144.0 mg/dl (70-99(Fasting)); Magnesium 1.8 mg/dl (1.7-2.4); Potassium 4.7 mmol/L (3.5-5.1); Sodium 138.0 mmol/L (136-145)
[2025-05-31] MEDS: DEXTROSE 50% 50 ML SYRINGE IV PRN (21:47)
[2025-05-31] MEDS: GABAPENTIN 800 MG TAB PO SCH (21:55)
[2025-05-31] MEDS: DOCUSATE SODIUM/SENNA 50/8.6MG TAB PO SCH (21:55)
[2025-05-31] MEDS: HEPARIN SOD 5,000 UNIT/0.5 ML VIAL SQ SCH (22:13)
[2025-05-31] MEDS: CHECK CLONIDINE PATCH PLACEMENT SCH (23:17)
[2025-06-01 01:11] LABS: Anion Gap 10.0 (3-11); Blood Urea Nitrogen 39.0 mg/dl (6-23); Calcium 8.6 mg/dl (8.6-10.3); Carbon Dioxide 24.0 mmol/L (21-32); Chloride 103.0 mmol/L (98-107); Creatinine Clr Calc Pharmacy 76.7 ml/min; Glucose 250.0 mg/dl (70-99(Fasting)); Magnesium 1.8 mg/dl (1.7-2.4); Potassium 4.8 mmol/L (3.5-5.1); Sodium 137.0 mmol/L (136-145)
[2025-06-01 04:37] LABS: Base Excess VBG -4.4 mEq/L; HCO3 VBG 23 mmol/L; Oxygen Saturation VBG < 60.0 %; PCO2 VBG 48 mmHg (38-50); PO2 VBG 36 mmHg; pH VBG 7.28 (7.36-7.41)
[2025-06-01 05:52] LABS: Hematocrit (blood only) 37.8 % (42.0-52.0); Hemoglobin 11.5 g/dl (14.0-18.0); Immature Granulocytes # (auto) 0.04 K/uL (0.01-0.20); Immature Granulocytes % (auto) 0.4 %; Mean Corpuscular Hemoglobin 27.6 pg (25.0-34.0); Mean Corpuscular Volume 90.6 fL (80.0-100.0); Platelet Count 230 K/uL (130-400); RDW Standard Deviation 60.1 fL (36.4-46.3); Red Blood Count 4.17 M/uL (4.70-6.10); White Blood Count 10.70 K/ul (4.8-10.8)
[2025-06-01 06:10] LABS: Anion Gap 10.0 (3-11); Blood Urea Nitrogen 37.0 mg/dl (6-23); Calcium 8.8 mg/dl (8.6-10.3); Carbon Dioxide 24.0 mmol/L (21-32); Chloride 102.0 mmol/L (98-107); Creatinine Clr Calc Pharmacy 76.0 ml/min; Glucose 195.0 mg/dl (70-99(Fasting)); Magnesium 1.9 mg/dl (1.7-2.4); Potassium 4.9 mmol/L (3.5-5.1); Sodium 136.0 mmol/L (136-145)
[2025-06-01] MEDS: D5W AND LACTATED RINGERS 1,000 ML IV SCH (08:42)
[2025-06-01 08:43] LABS: Base Excess VBG 1.7 mEq/L; HCO3 VBG 27 mmol/L; Oxygen Saturation VBG < 60.0 %; PCO2 VBG 42 mmHg (38-50); PO2 VBG 36 mmHg; pH VBG 7.41 (7.36-7.41)
[2025-06-01] MEDS: LACTATED RINGER'S 1,000 ML IV SCH (09:03)
[2025-06-01 09:09] LABS: Alanine Aminotransferase 64.0 U/L (7-52); Albumin Globulin Ratio 0.9 (0.9-2); Alkaline Phosphatase 92.0 U/L (34-104); Anion Gap 10.0 (3-11); Bilirubin,Total 0.9 mg/dl (0.2-1.0); Blood Urea Nitrogen 37.0 mg/dl (6-23); Calcium 8.7 mg/dl (8.6-10.3); Carbon Dioxide 25.0 mmol/L (21-32); Chloride 101.0 mmol/L (98-107); Creatinine Clr Calc Pharmacy 78.1 ml/min; Globulin 3.3 gm/dl (2.5-4.0); Glucose 209.0 mg/dl (70-99(Fasting)); Magnesium 1.8 mg/dl (1.7-2.4); Potassium 4.7 mmol/L (3.5-5.1); Sodium 136.0 mmol/L (136-145); Total Protein 6.4 gm/dl (6.0-8.3)
[2025-06-01] MEDS: FINASTERIDE 5 MG TAB PO SCH (09:09)
[2025-06-01] MEDS: TAMSULOSIN HCL 0.4 MG CAP PO SCH (09:10)
[2025-06-01] MEDS: ASPIRIN 81 MG CHEW PO SCH (09:11)
[2025-06-01] MEDS: ATORVASTATIN 40 MG TAB PO SCH (09:11)
[2025-06-01] MEDS: METOPROLOL SUCC 25MG EXT REL TAB PO SCH (09:11)
--- NOTE | 2025-06-01 09:23 | Infectious Disease Consult ---
Date of Consultation June 01, 2025 Assessment & Plan (1) Lower extremity ulceration: (2) Type II diabetes mellitus, uncontrolled: (3) Peripheral arterial disease: Plan Problems: #LLE necrotic wound #DM2 #PVD Micro: 05/31 BCx x2: NGTD Abx: Zosyn 05/31 - present 65 yo M with DM2, HTN, HLD, CHF, CKD, BPH, gout, GERD, emphysema, PVD sent from [place] to [facility] for evaluation of elevated BG, found to have LLE necrotic wou nd. He was recently being worked up for gout and was started on prednisone on 05/28 for 5 days. Found to have urinary incontinence 05/31 AM as well as drowsiness, and pt was unable to articular what was bothering him. BG was 450 at his facility. On presentation, pt was afebrile, HR 115, BP 111/84, RR 28, 100% on 2 L NC. Labs showed WBC 7.81, lactate 5.2, AST 68, ALT 57, Tbili 1.2, CRP 4.5. CXR with IMRNA interstitial prominence and mild LLL linear and patchy opacity, possible combination of pulmonary vascular congestion and L lung pneumonia. CT head unremarkable. L tib/fib XR with no definite fracture. LLE arterial duplex with advanced atherosclerotic disease involving infrapopliteal arteries resulting in severe luminal stenoses, and additional moderate atherosclerotic involvement of L mid to distal superficial femoral artery. LLE CT showed diffuse subcutaneous edema, small fluid layering along fascial planes posteriorly, no organized/drainable fluid collection, no soft tissue gas. On my evaluation, pt reports that he fell and fractured his L ankle--unclear when, perhaps in February. He went to the hospital and was given a boot to wear. He worked in his shop with the boot on, but then developed a wound from the boot rubbing on his skin. He shows me a picture on his phone from 04/02 with wounds on his LLE. Recommendations: - Can continue Zosyn for now - Will follow-up vascular surgery and wound care recs Will continue to follow Consultation Information Consultation was provided via telemedicine using two-way real-time interactive telecommunication between the patient and the telemedicine provider. For the duration of the visit, the provider was performing the assessment from a different facility than the patient. This includesuse of bluetooth stethoscope forauscultationperformed by the telepresenter that the telemedicine provider can hear if described in the physical exam. Cat Cracker Operator contact information: Please call [facility] . (Phone Number For Physician Use Only) After establishing a telemedicine visit, patient was: Patient was verified with two unique identifiers, Patient/authorized rep acknowledged consent and understanding and Gave permission to continue telehealth session Time Spent with Patient: Initial => 55 min History of Present Illness Reason for Consultation: Necrotic leg wound Attending Physician: Jerry Devi MD History of Present Illness 65 yo M with DM2, HTN, HLD, CHF, CKD, BPH, gout, GERD, emphysema, PVD sent from [place] to [facility] for evaluation of elevated BG. He was recently being worked up for gout and was started on prednisone on 05/28 for 5 days. Found to have urinary incontinence 7 AM as well as drowsiness, and pt was unable to articular what was bothering him. BG was 450 at his facility. On presentation, pt was afebrile HR 115, BP 111/84, RR 28, 100% on 2 L NC. Labs showed WBC 7.81, lactate 5.2, AST 68, ALT 57, Tbili 1.2, CRP 4.5. CXR with MIRNA interstitial prominence and mild LLL linear and patchy opacity, possible combination of pulmonary vascular congestion and L lung pneumonia. CT head unremarkable. L tib/fib XR with no definite fracture. LLE arterial duplex with advanced atherosclerotic disease involving infrapopliteal arteries resulting in severe luminal stenoses, and additional moderate atherosclerotic involvement of L mid to distal superficial femoral artery. LLE CT showed diffuse subcutaneous edema, small fluid layering along fascial planes posteriorly, no organized/drainable fluid collection, no soft tissue gas. On my evaluation, pt reports that he fell and fractured his L ankle--unclear when, perhaps in February. He went to the hospital and was given a boot to wear. He worked in his shop with the boot on, but then developed a wound from the boot rubbing on his skin. He shows me a picture on his phone from 04/02 with wounds on his LLE. Allergies Allergy/AdvReac Type Severity Reaction Status Date / Time cephalexin [From Keflex] Allergy Verified 09/17/23 08:13 duloxetine AdvReac Severe Verified 09/17/23 08:13 dulaglutide [From Trulicity] AdvReac Verified 09/17/23 08:13 empagliflozin AdvReac Verified 09/17/23 08:13 [From Jardiance] losartan AdvReac Verified 09/17/23 08:13 lisinopril AdvReac Uncoded 09/17/23 08:13 Home Medications Medication Instructions Recorded Confirmed Type blood-glucose meter #1 ea 05/12/21 09/17/23 Rx lancets 30 gauge #100 ea 05/12/21 09/17/23 Rx blood sugar diagnostic #400 ea 01/08/23 09/17/23 Rx Insta-Glucose 1 applic buccal DAILY PRN 05/31/25 05/31/25 History Hypoglycemia Milk of Magnesia 30 ml PO DAILY PRN Constipation 05/31/25 05/31/25 History acetaminophen 325 mg tablet 650 mg PO Q6H PRN Mild Pain (Scale 05/31/25 05/31/25 History Score 1-4) acetaminophen 325 mg tablet 650 mg PO Q6H PRN temp>101 05/31/25 05/31/25 History allopurinol 100 mg tablet 100 mg PO DAILY 05/31/25 05/31/25 History aspirin 81 mg chewable tablet 81 mg PO DAILY 05/31/25 05/31/25 History atorvastatin 80 mg tablet 80 mg PO DAILY 05/31/25 05/31/25 History bisacodyl 10 mg rectal suppository 10 mg AR DAILY PRN Constipation 05/31/25 05/31/25 History (Dulcolax (bisacodyl)) capsaicin 0.1 % topical cream 1 applic topical .DAILY FOR 10 DAYS 05/31/25 05/31/25 History carisoprodol 350 mg tablet (Soma) 350 mg PO Q6H PRN muscle pain 05/31/25 05/31/25 History clonidine 0.2 mg/24 hr weekly 0.2 mg transdermal .Q Sunday05/31/25 05/31/25 History transdermal patch colchicine 0.6 mg tablet 0.6 mg PO Q12H PRN gout flare 05/31/25 05/31/25 History duloxetine 20 mg capsule,delayed 20 mg PO DAILY 05/31/25 05/31/25 History release finasteride 5 mg tablet 5 mg PO DAILY 05/31/25 05/31/25 History furosemide 40 mg tablet 40 mg PO DAILY 05/31/25 05/31/25 History gabapentin 800 mg tablet 800 mg PO BID 05/31/25 05/31/25 History (Neurontin) glucagon 1 mg injection kit 1 mg IM DAILY PRN Hypoglycemia 05/31/25 05/31/25 History insulin glargine 100 unit/mL (3 10 unit subcut DAILY 05/31/25 05/31/25 History mL) subcutaneous pen (Lantus Solostar U-100 Insulin) magnesium oxide 500 mg capsule 400 mg PO DAILY 05/31/25 05/31/25 History metformin 1,000 mg tablet 1,000 mg PO Q12 05/31/25 05/31/25 History metoprolol succinate 25 mg 25 mg PO DAILY 05/31/25 05/31/25 History tablet,extended release 24 hr prednisone 10 mg tablet 10 mg PO .DAILY FOR 4 DAYS 05/31/25 05/31/25 History quetiapine 25 mg tablet (Seroquel) 25 mg PO DAILY 05/31/25 05/31/25 History quetiapine 25 mg tablet (Seroquel) 50 mg PO HS 05/31/25 05/31/25 History repaglinide 2 mg tablet 1 mg PO .DAILY BEFORE MEALS 05/31/25 05/31/25 History sennosides 8.6 mg-docusate sodium 1 tab-cap PO BID 05/31/25 05/31/25 History 50 mg tablet (Senna-S) sodium phosphates 19 gram-7 118 ml AR DAILY PRN Constipation 05/31/25 05/31/25 History gram/118 mL enema (Enema) spironolactone 25 mg tablet 12.5 mg PO DAILY 05/31/25 05/31/25 History tamsulosin 0.4 mg capsule 0.4 mg PO DAILY 05/31/25 05/31/25 History tramadol 50 mg tablet 50 mg PO Q4H PRN Pain 05/31/25 05/31/25 History Patient History Surgical History Previous back surgery Family History Mother Uterine cancer Father Diabetes Social History Smoking Status: Unknown if ever smoked Second Hand Exposure: No; Do You Dip or Chew Tobacco: No; Preferred Language: [place] Accounting Assistant Required: No marital status: Single Current Living Situation: Half-Way Current Living Situation Comment: [facility] current occupational status: unemployed Feels Safe at Home: Yes Diet: diabetic Do you think of yourself as: straight/heterosexual Gender Identity: Male Review of System A complete ROS was performed and is negative except as mentioned in the HPI. Physical Exam Physical Exam: GEN: laying in bed in NAD. RESP: No increased work of breathing SKIN: posterior L calf with necrotic eschar, no drainage Results & Data Vital Signs (Past 12 Hours) Vital Signs Temp Pulse Pulse Resp BP Pulse Ox O2 Del Method 06/01/25 07:31 100 H 06/01/25 07:12 36.7 C 103 H 18 108/75 97 Room Air 06/01/25 03:40 36.4 C L 90 19 106/76 94 Room Air 05/31/25 23:21 36.4 C L 98 H 18 107/75 99 Nasal Cannula 05/31/25 21:59 95 H O2 Flow Rate 06/01/25 07:31 06/01/25 07:12 06/01/25 03:40 05/31/25 23:21 2 05/31/25 21:59 Laboratory Results Short CBC 06/01/25 06/01/25 Range/Units 04:22 05:30 WBC Cancelled 10.70 Hgb Cancelled 11.5 L Hct Cancelled 37.8 L Plt Count Cancelled 230 BMP 05/31/25 05/31/25 06/01/25 16:46 20:16 00:26 Sodium 134 L 138 137 Potassium 4.3 D 4.7 4.8 Chloride 100 102 103 Carbon Dioxide 24 BUN 41 H 38 H 39 H Creatinine 1.09 1.12 1.10 Glucose 363 H* 144 H 250 H Calcium 8.6 8.8 8.6 06/01/25 06/01/25 06/01/25 04:22 05:30 08:29 Sodium Cancelled 136 136 Potassium Cancelled 4.9 4.7 Chloride Cancelled 102 101 Carbon Dioxide Cancelled BUN Cancelled 37 H 37 H Creatinine Cancelled 1.11 1.08 Glucose Cancelled 195 H 209 H Calcium Cancelled 8.8 8.7 06/01/25 12:10 Sodium 135 L Potassium 4.5 Chloride 102 Carbon Dioxide 24 BUN 33 H Creatinine 0.92 Glucose 195 H Calcium 8.3 L Liver Function 06/01/25 Range/Units 08:29 Total Bilirubin 0.9 (0.2-1.0) mg/dl AST 57 H (13-39) U/L ALT 64 H (7-52) U/L Alkaline Phosphatase 92 (34-104) U/L Albumin 3.1 L (3.4-5.0) gm/dl Urine 05/31/25 Range/Units 17:45 Urine Color Yellow Urine Appearance Clear (Clear) Urine pH 5.0 (4.5-7.5) Ur Specific [place] > 1.045 H (1.000-1.030) Urine Protein 2+ H (Negative) Urine Glucose (UA) 3+ H (Negative) Diagnostic Findings Chest X-Ray 05/31/25 10:50 Clinical History: Weakness Technique: A frontal view of the chest was obtained Findings: There is left upper lobe interstitial prominence and there is also mild left lower lobe linear and patchy opacity, concerning for pneumonia. There is also mild diffuse interstitial prominence. The heart is mildly enlarged. No definite pleural effusion or pneumothorax is seen. No fracture is noted. No foreign body is seen Impression: 1. Possible combination of pulmonary vascular congestion and left lung pneumonia 2. Mild cardiomegaly ACT 112: Positive. There are findings on this exam that require communication between the performing entity and the patient following Patient Test Result Information Act ([place] ACT 112) guidelines. Electronically signed by Anshul Howard 05-31-2025 12:[address] 05/31/25 10:55 Clinical History: Altered mental status Technique: Axial computed tomography images were obtained of the brain without intravenous contrast. Findings: There is diffuse cerebral atrophy, within expected limits for the patient's age. Areas of decreased attenuation are seen within the periventricular white matter, likely representing chronic small vessel ischemic disease. There is no definite sign of acute or old infarction. No intracranial hemorrhage is evident. No definite mass lesion is seen on this noncontrast examination. There is no midline shift or other form of herniation. No hydrocephalus is seen. No fracture is identified. The orbits and the visualized paranasal sinuses appear unremarkable. The mastoid air cells appear clear. Impression: 1. Cerebral atrophy and chronic small vessel ischemic disease 2. Otherwise unremarkable noncontrast CT of the brain Electronically signed by Anshul Howard 05-31-2025 13:09 PM Tibia/Fibula X-Ray 05/31/25 10:56 Clinical History: Swelling 4 views of the left lower leg are submitted for review. Findings: No fracture or dislocation is seen. There is patellofemoral compartment predominant degenerative joint disease of the left knee. No other osseous abnormality is identified. There are no radiopaque foreign bodies. Impression: 1. No definite fracture 2. Left knee osteoarthritis Electronically signed by Anshul Howard 05-31-2025 12:39 PM Duplex Scan Lower Extremity Artery 05/31/25 14:19 BIALTERAL LOWER EXTREMITY ARTERIAL DUPLEX ULTRASOUND INDICATION: Pain TECHNIQUE: Ultrasound of the bilateral lower extremity arteries was performed. A duplex Doppler study was performed, consisting of integrated 2-dimensional (2D) real-time imaging: Color flow Doppler and Doppler spectral analysis. COMPARISON: None FINDINGS: RIGHT: Blood flow velocities are within normal limits. Advanced atherosclerotic disease involving the infrapopliteal arteries resulting in severe luminal stenoses Blood flow velocities and waveforms are as follows: BEHAVIORAL INSTRUCTOR: 51.8 cm/s, triphasic Profunda femoris: 49.6 cm/s, triphasic Proximal SFA: 45.6 cm/s, triphasic Mid SFA: 53.1 cm/s, triphasic Distal SFA: 70.5 cm/s, triphasic Popliteal: 36.2 cm/s, triphasic KRYSTAL: 13.8 cm/s, monophasic Peroneal artery: 20.8 cm/s, monophasic BRANCH ACCOUNT EXECUTIVE: 21.2 cm/s, monophasic DPA: 6.2 cm/s, monophasic LEFT: Blood flow velocities are within normal limits. Advanced atherosclerotic disease involving the infrapopliteal arteries resulting in severe luminal stenoses. Additional moderate atherosclerotic involvement of the mid to distal superficial femoral artery. Blood flow velocities and waveforms are as follows: BEHAVIORAL INSTRUCTOR: 51.8 cm/s, triphasic Profunda femoris: 42.6 cm/s, triphasic Proximal SFA: 53.5 cm/s, triphasic Mid SFA: 55.1 cm/s, triphasic Distal SFA: 43.0 cm/s, triphasic Popliteal: 44.7 cm/s, triphasic KRYSTAL: 61.3 cm/s, monophasic Peroneal artery: 22.3 cm/s, monophasic BRANCH ACCOUNT EXECUTIVE: 16.1 cm/s, monophasic DPA: 17.4 cm/s, monophasic IMPRESSION: Bilaterally, there is advanced atherosclerotic disease involving the infrapopliteal arteries resulting in severe luminal stenoses. There is additional moderate atherosclerotic involvement of the LEFT mid to distal superficial femoral artery. Electronically signed by Frederic Stratton 05-31-2025 8:[address] 05/31/25 14:29 CT RIGHT FEMUR WITH CONTRAST: HISTORY: Pain. Infection. Concern for abscess TECHNIQUE: CT of the right femur was obtained with intravenous contrast. Coronal and sagittal reformats were created. IV CONTRAST: 100 mL of OMNIPAQUE 300 COMPARISON: FINDINGS: No acute fracture is identified. Extensive subcutaneous edema. There is a small fluid layering along the fascia just lateral to the quadriceps muscle. No organized, drainable fluid collection is identified. No soft tissues gas is identified. IMPRESSION: Diffuse subcutaneous edema. Small fluid layering along the fascial planes of the quadriceps muscle. No organized/drainable fluid collection is identified to suggest an abscess. No soft tissues gas is identified. Electronically signed by Frederic Stratton 05-31-2025 5:[address] 05/31/25 14:29 CT LEFT TIBIA-FIBULA WITH CONTRAST: HISTORY: Pain. Infection. Concern for abscess TECHNIQUE: CT of the left tibia-fibula was obtained with intravenous contrast. Coronal and sagittal reformats were created. IV CONTRAST: 100 mL of OMNIPAQUE 300 COMPARISON: FINDINGS: No acute fracture is identified. Advanced tricompartment osteoarthritis of the left knee. Extensive subcutaneous edema. There is a small fluid layering along the fascia planes posteriorly No organized, drainable fluid collection is identified No soft tissues gas is identified. Scattered soft tissue wounds. IMPRESSION: Diffuse subcutaneous edema. Small fluid layering along the fascial planes posteriorly. No organized/drainable fluid collection is identified to suggest an abscess. No soft tissues gas is identified. Electronically signed by Frederic Stratton 05-31-2025 5:16 PM Medications Administered Current Inpatient Medications Allopurinol (Allopurinol 100 Mg Tab) 100 mg PO DAILY DAO Stop: 07/01/25 08:59 Last Admin: 06/01/25 09:11 Dose: 100 mg Aspirin (Aspirin 81 Mg Chew) 81 mg PO DAILY [facility] Stop: 07/01/25 08:59 Last Admin: 06/01/25 09:11 Dose: 81 mg Atorvastatin Calcium (Atorvastatin 40 Mg Tab) 80 mg PO DAILY DAO Stop: 07/01/25 08:59 Last Admin: 06/01/25 09:11 Dose: 80 mg Bisacodyl (Bisacodyl 10 Mg Supp) 10 mg AR DAILY PRN PRN Reason: Constipation Stop: 06/30/25 16:25 Clonidine HCl (Clonidine Hcl 0.2 Mg/24 Hr Transderm Sys) 1 patch TD Th@0900 [facility] Stop: 07/04/25 08:59 Dextrose (Dextrose 50% 50 Ml Syringe) 25 - 50 ml IV UD PRN; Protocol PRN Reason: Hypoglycemia Protocol Stop: 06/30/25 11:44 Last Admin: 06/01/25 02:29 Dose: 25 ml Duloxetine HCl (Duloxetine Hcl 20 Mg Cap) 20 mg PO DAILY DAO Stop: 07/01/25 08:59 Last Admin: 06/01/25 09:10 Dose: 20 mg Finasteride (Finasteride 5 Mg Tab) 5 mg PO DAILY DAO Stop: 07/01/25 08:59 Last Admin: 06/01/25 09:09 Dose: 5 mg Gabapentin (Gabapentin 800 Mg Tab) 800 mg PO BID DAO Stop: 06/30/25 20:59 Last Admin: 06/01/25 09:10 Dose: 800 mg Glucagon (Glucagon For Inj 1 Mg Vial) 1 mg SQ UD PRN; Protocol PRN Reason: Hypoglycemia Protocol Stop: 06/30/25 11:44 Glucose (Glucose 40% Gel 15 Gm Tube) 15 - 30 gm PO UD PRN; Protocol PRN Reason: Hypoglycemia Protocol Stop: 06/30/25 11:44 Glucose (Glucose 10 Tab/Tube) 4 - 8 tab PO UD PRN; Protocol PRN Reason: Hypoglycemia Protocol Stop: 06/30/25 11:44 Heparin Sodium (Porcine) (Heparin Sod 5,000 Unit/0.5 Ml Vial) 5,000 units SQ Q12 DAO Stop: 06/30/25 20:59 Last Admin: 06/01/25 08:17 Dose: 5,000 units Piperacillin Sod/Tazobactam Sod (Zosyn) 4.5 gm in 100 mls @ 25 mls/hr IV Q8H [facility]; Protocol Stop: 06/07/25 15:59 Last Infusion: 06/01/25 13:05 Dose: Infused Heparin Sodium/Dextrose (Heparin 00235 Unit/500 Ml D5w) 25,000 units in 500 mls @ 20 mls/hr IV .Q24H [facility]; Protocol Stop: 07/01/25 14:44 Last Admin: 06/01/25 15:15 Dose: 1,000 units/hr, 20 mls/hr Insulin Aspart (Insulin Aspart Per Unit Charge) 0 units SC Q4 [facility] Stop: 07/01/25 15:59 Insulin Glargine (Lantus Per Unit Charge) 0 units SQ BID [facility]; Protocol Stop: 07/01/25 20:59 Metoprolol Succinate (Metoprolol Succ 25mg Ext Rel Tab) 25 mg PO DAILY [facility] Stop: 07/01/25 08:59 Last Admin: 06/01/25 09:11 Dose: 25 mg Miscellaneous (Carbohydrates For Hypoglycemia ) 15 - 30 gm PO UD PRN PRN Reason: Hypoglycemia Protocol Stop: 06/30/25 11:44 Miscellaneous (Remove Clonidine Patch) 1 each N/A Q7D@0859 [facility] Stop: 07/04/25 08:58 Miscellaneous (Check Clonidine Patch Placement) 1 each N/A QS [facility] Stop: 07/01/25 00:00 Last Admin: 06/01/25 08:22 Dose: Not Given Miscellaneous Information (Pharmacy Glycemic Mgmt Consult) 1 each N/A UD PRN PRN Reason: Consult Stop: 06/30/25 16:25 Quetiapine Fumarate (Quetiapine Fumarate 25 Mg Tablet) 50 mg PO HS [facility] Stop: 06/30/25 20:59 Last Admin: 05/31/25 21:55 Dose: Not Given Quetiapine Fumarate (Quetiapine Fumarate 25 Mg Tablet) 25 mg PO DAILY [facility] Stop: 07/01/25 08:59 Last Admin: 06/01/25 09:12 Dose: 25 mg Senna/Docusate Sodium (Docusate Sodium/Senna 50/8.6mg Tab) 1 tab PO BID [facility] Stop: 06/30/25 20:59 Last Admin: 06/01/25 09:11 Dose: Not Given Tamsulosin HCl (Tamsulosin Hcl 0.4 Mg Cap) 0.4 mg PO DAILY [facility] Stop: 07/01/25 08:59 Last Admin: 06/01/25 09:10 Dose: 0.4 mg Tramadol HCl (Tramadol Hcl 50 Mg Tablet) 50 mg PO Q4H PRN PRN Reason: Pain Stop: 06/30/25 16:25 Last Admin: 06/01/25 12:24 Dose: 50 mg
--- NOTE | 2025-06-01 09:45 | Orthopedic Consultation ---
Date of Consultation June 01, 2025 Assessment & Plan (1) Lower extremity ulceration: I saw the patient with Dr. Ferguson Recommend a vascular consult. Patient may need transfer to a tertiary care facility for management of his wounds Orthopedically patient is stable Appreciate infectious disease consultation recommendations Continue care per primary service. Dr. Martinez was present during the patient's evaluation and is aware of the plan We will sign off at this point No need for follow-up in our clinic Supervising Physician Co-Signing Physician Notes I, Dr. Ferguson, saw and examined the patient with my PA present. I discussed the management with my PA. I reviewed my PAs note and agree with the documented findings and attest to completing the substantive portion of medical decision making and plan of care I developed. History of Present Illness Reason for Consultation: Bilateral lower extremity wounds Requesting Physician: Luca Ferguson MD Attending Physician: Jerry Devi MD History of Present Illness 65 yo M with PMHx of DM II, HTN, HLD, chronic systolic heart failure, CKD, BPH, gout, GERD, emphysema, PVD sent to [facility] from [place] for the evaluation of elevated BG. Per scant documentation from facility, pt was recently being worked up for gout and was started on prednisone on 05/28 for 5 days (last dose to be on 06/01). He was then found to have urinary incontinence this morning as well as drowsiness. He was not able to articulate what was bothering him. He was similarly confused yesterday but his mentation improved. His BG this AM was 450 at the facility. In the ED, pt was found to have elevated potassium, BG in the 500s, A, elevated lactate to 5.2. Cr slight increase from 0.78 -> 1.21, BUN elevated 16 - > 42. Bicarb mild decrease to 22. Pt also noted to have abnormal LFTs as well as elevated troponin. He was found to have left lower extremity infected wound. He is started on zosyn in the ED. Pt is also started on insulin infusion. Allergies Allergy/AdvReac Type Severity Reaction Status Date / Time cephalexin [From Keflex] Allergy Verified 09/17/23 08:13 duloxetine AdvReac Severe Verified 09/17/23 08:13 dulaglutide [From Trulicity] AdvReac Verified 09/17/23 08:13 empagliflozin AdvReac Verified 09/17/23 08:13 [From Buddy] losartan AdvReac Verified 09/17/23 08:13 lisinopril AdvReac Uncoded 09/17/23 08:13 Home Medications Medication Instructions Recorded Confirmed Type blood-glucose meter #1 ea 05/12/21 09/17/23 Rx lancets 30 gauge #100 ea 05/12/21 09/17/23 Rx blood sugar diagnostic #400 ea 01/08/23 09/17/23 Rx Insta-Glucose 1 applic buccal DAILY PRN 05/31/25 05/31/25 History Hypoglycemia Milk of Magnesia 30 ml PO DAILY PRN Constipation 05/31/25 05/31/25 History acetaminophen 325 mg tablet 650 mg PO Q6H PRN Mild Pain (Scale 05/31/25 05/31/25 History Score 1-4) acetaminophen 325 mg tablet 650 mg PO Q6H PRN temp>101 05/31/25 05/31/25 History allopurinol 100 mg tablet 100 mg PO DAILY 05/31/25 05/31/25 History aspirin 81 mg chewable tablet 81 mg PO DAILY 05/31/25 05/31/25 History atorvastatin 80 mg tablet 80 mg PO DAILY 05/31/25 05/31/25 History bisacodyl 10 mg rectal suppository 10 mg AZ DAILY PRN Constipation 05/31/25 05/31/25 History (Dulcolax (bisacodyl)) capsaicin 0.1 % topical cream 1 applic topical .DAILY FOR 10 DAYS 05/31/25 05/31/25 History carisoprodol 350 mg tablet (Soma) 350 mg PO Q6H PRN muscle pain 05/31/25 05/31/25 History clonidine 0.2 mg/24 hr weekly 0.2 mg transdermal .Q Sunday05/31/25 05/31/25 History transdermal patch colchicine 0.6 mg tablet 0.6 mg PO Q12H PRN gout flare 05/31/25 05/31/25 History duloxetine 20 mg capsule,delayed 20 mg PO DAILY 05/31/25 05/31/25 History release finasteride 5 mg tablet 5 mg PO DAILY 05/31/25 05/31/25 History furosemide 40 mg tablet 40 mg PO DAILY 05/31/25 05/31/25 History gabapentin 800 mg tablet 800 mg PO BID 05/31/25 05/31/25 History (Neurontin) glucagon 1 mg injection kit 1 mg IM DAILY PRN Hypoglycemia 05/31/25 05/31/25 History insulin glargine 100 unit/mL (3 10 unit subcut DAILY 05/31/25 05/31/25 History mL) subcutaneous pen (Lantus Solostar U-100 Insulin) magnesium oxide 500 mg capsule 400 mg PO DAILY 05/31/25 05/31/25 History metformin 1,000 mg tablet 1,000 mg PO Q12 05/31/25 05/31/25 History metoprolol succinate 25 mg 25 mg PO DAILY 05/31/25 05/31/25 History tablet,extended release 24 hr prednisone 10 mg tablet 10 mg PO .DAILY FOR 4 DAYS 05/31/25 05/31/25 History quetiapine 25 mg tablet (Seroquel) 25 mg PO DAILY 05/31/25 05/31/25 History quetiapine 25 mg tablet (Seroquel) 50 mg PO HS 05/31/25 05/31/25 History repaglinide 2 mg tablet 1 mg PO .DAILY BEFORE MEALS 05/31/25 05/31/25 History sennosides 8.6 mg-docusate sodium 1 tab-cap PO BID 05/31/25 05/31/25 History 50 mg tablet (Senna-S) sodium phosphates 19 gram-7 118 ml [place] DAILY PRN Constipation 05/31/25 05/31/25 History gram/118 mL enema (Enema) spironolactone 25 mg tablet 12.5 mg PO DAILY 05/31/25 05/31/25 History tamsulosin 0.4 mg capsule 0.4 mg PO DAILY 05/31/25 05/31/25 History tramadol 50 mg tablet 50 mg PO Q4H PRN Pain 05/31/25 05/31/25 History Patient History Surgical History Previous back surgery Family History Mother Uterine cancer Father Diabetes Social History Smoking Status: Unknown if ever smoked Second Hand Exposure: No; Do You Dip or Chew Tobacco: No; 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 There is no active drainage. There is no tenderness over around the wound. And his left lower extremity has a larger eschar necrotic in nature extending from his proximal calf to his posterior ankle. Patient states this has been present since he fractured the left ankle a few months ago. Patient's capillary refill is brisk. He is peripheral pulses are 1+. He is able to detect very light sensation to touch over the pads of his digits. He is able to actively dorsi and plantarflex his foot. Patient is able to move his digits. There is discoloration of bilateral feet. Results & Data Vital Signs (Past 12 Hours) Vital Signs Temp Pulse Pulse Resp BP Pulse Ox O2 Del Method 06/01/25 07:31 100 H 06/01/25 07:12 36.7 C 103 H 18 108/75 97 Room Air 06/01/25 03:40 36.4 C L 90 19 106/76 94 Room Air 05/31/25 23:21 36.4 C L 98 H 18 107/75 99 Nasal Cannula 05/31/25 21:59 95 H O2 Flow Rate 06/01/25 07:31 06/01/25 07:12 06/01/25 03:40 05/31/25 23:21 2 05/31/25 21:59 Diagnostic Findings Laboratory Results WBC 10.70 K/ul (4.8-10.8) 06/01/25 05:30 RBC 4.17 M/uL (4.70-6.10) L 06/01/25 05:30 Hgb 11.5 g/dl (14.0-18.0) L 06/01/25 05:30 Hct 37.8 % (42.0-52.0) L 06/01/25 05:30 MCV 90.6 fL (80.0-100.0) 06/01/25 05:30 MCH 27.6 pg (25.0-34.0) 06/01/25 05:30 MCHC 30.4 g/dL (32.0-36.0) L 06/01/25 05:30 RDW Std Deviation 60.1 fL (36.4-46.3) H 06/01/25 05:30 RDW Coeff of Celina 18.2 % (11.5-14.5) H 06/01/25 05:30 Plt Count 230 K/uL (130-400) 06/01/25 05:30 MPV 11.4 fL (9.4-12.4) 06/01/25 05:30 Immature Gran % (Auto) 0.4 % 06/01/25 05:30 Neut % (Auto) 72.8 % 06/01/25 05:30 Lymph % (Auto) 17.3 % 06/01/25 05:30 Gibson % (Auto) 9.2 % 06/01/25 05:30 Eos % (Auto) 0.2 % 06/01/25 05:30 Baso % (Auto) 0.1 % 06/01/25 05:30 Neut # (Auto) 7.80 K/uL (1.40-6.50) H 06/01/25 05:30 Lymph # (Auto) 1.85 K/uL (1.20-3.40) 06/01/25 05:30 Gibson # (Auto) 0.98 K/uL (0.11-0.59) H 06/01/25 05:30 Eos # (Auto) 0.02 K/uL (0.00-0.50) 06/01/25 05:30 Baso # (Auto) 0.01 K/uL (0.00-0.20) 06/01/25 05:30 Immature Gran # (Auto) 0.04 K/uL (0.01-0.20) 06/01/25 05:30 Absolute Nucleated RBC Cancelled 06/01/25 04:22 Nucleated RBC % (auto) Cancelled 06/01/25 04:22 Platelet Estimate Cancelled 06/01/25 04:22 ESR 30 mm/hr (0-20) H 05/31/25 10:45 VBG pH 7.41 (7.36-7.41) 06/01/25 08:29 VBG pH Cancelled 06/01/25 08:29 VBG pCO2 42 mmHg (38-50) 06/01/25 08:29 VBG pO2 36 mmHg 06/01/25 08:29 VBG HCO3 27 mmol/L 06/01/25 08:29 VBG O2 Saturation < 60.0 % 06/01/25 08:29 VBG Base Excess 1.7 mEq/L 06/01/25 08:29 Sodium 136 mmol/L (136-145) 06/01/25 08:29 Potassium 4.7 mmol/L (3.5-5.1) 06/01/25 08:29 Chloride 101 mmol/L (98-107) 06/01/25 08:29 Carbon Dioxide 25 mmol/L (21-32) 06/01/25 08:29 Anion Gap 10 (3-11) 06/01/25 08:29 BUN 37 mg/dl (6-23) H 06/01/25 08:29 Creatinine 1.08 mg/dl (0.6-1.4) 06/01/25 08:29 Est Cr Clr Drug Dosing 78.1 ml/min 06/01/25 08:29 eGFR 76.63 06/01/25 08:29 BUN/Creatinine Ratio 34.3 (10-20) H 06/01/25 08:29 Glucose 209 mg/dl (70-99(Fasting)) H 06/01/25 08:29 POC Glucose 213 mg/dl (70-99) H 06/01/25 08:10 Lactate 2.4 mmol/L (0.4-2.0) H* 06/01/25 08:29 Calcium 8.7 mg/dl (8.6-10.3) 06/01/25 08:29 Phosphorus 3.0 mg/dl (2.5-4.9) 06/01/25 08:29 Magnesium 1.8 mg/dl (1.7-2.4) 06/01/25 08:29 Total Bilirubin 0.9 mg/dl (0.2-1.0) 06/01/25 08:29 AST 57 U/L (13-39) H 06/01/25 08:29 ALT 64 U/L (7-52) H 06/01/25 08:29 Alkaline Phosphatase 92 U/L (34-104) 06/01/25 08:29 Ammonia 35.0 umol/L (18-72) 05/31/25 11:20 Troponin I High Sens 47.8 pg/ml (0-20) H 05/31/25 12:36 C-Reactive Protein 4.50 mg/dl (0-0.5) H 05/31/25 10:45 Total Protein 6.4 gm/dl (6.0-8.3) 06/01/25 08:29 Albumin 3.1 gm/dl (3.4-5.0) L 06/01/25 08:29 Globulin 3.3 gm/dl (2.5-4.0) 06/01/25 08:29 Albumin/Globulin Ratio 0.9 (0.9-2) 06/01/25 08:29 Procalcitonin 0.37 ng/ml (0-0.5) 05/31/25 11:20 TSH 3.371 uIu/ml (0.300-4.500) 05/31/25 10:45 Urine Color Yellow 05/31/25 17:45 Urine Appearance Clear (Clear) 05/31/25 17:45 Urine pH 5.0 (4.5-7.5) 05/31/25 17:45 Ur Specific [place] > 1.045 (1.000-1.030) H 05/31/25 17:45 Urine Protein 2+ (Negative) H 05/31/25 17:45 Urine Glucose (UA) 3+ (Negative) H 05/31/25 17:45 Urine Ketones Trace (Negative) H 05/31/25 17:45 Urine Blood Negative (Negative) 05/31/25 17:45 Urine Nitrite Negative (Negative) 05/31/25 17:45 Urine Bilirubin Negative (Negative) 05/31/25 17:45 Urine Urobilinogen Negative (Negative) 05/31/25 17:45 Ur Leukocyte Esterase Negative (Negative) 05/31/25 17:45 Urine WBC (Auto) 0-5 /hpf (0-5) 05/31/25 17:45 Urine RBC (Auto) 0-2 /hpf (0-2) 05/31/25 17:45 U Hyaline Cast (Auto) >20 /lpf (0-2) H 05/31/25 17:45 U Epithel Cells (Auto) 6-10 /hpf (0-2) H 05/31/25 17:45 Urine Bacteria (Auto) None Seen (None Seen) 05/31/25 17:45 Hyaline Casts Present /lpf (None Presnt) A 05/31/25 17:45 Granular Casts Present /lpf (None Prsent) A 05/31/25 17:45 Urine Comment 05/31/25 17:45 Nasal Screen MRSA (PCR) Negative (Negative) 05/31/25 17:45 Impressions Chest X-Ray 05/31/25 10:50 Clinical History: Weakness Technique: A frontal view of the chest was obtained Findings: There is left upper lobe interstitial prominence and there is also mild left lower lobe linear and patchy opacity, concerning for pneumonia. There is also mild diffuse interstitial prominence. The heart is mildly enlarged. No definite pleural effusion or pneumothorax is seen. No fracture is noted. No foreign body is seen Impression: 1. Possible combination of pulmonary vascular congestion and left lung pneumonia 2. Mild cardiomegaly ACT 112: Positive. There are findings on this exam that require communication between the performing entity and the patient following Patient Test Result Information Act ([place] ACT 112) guidelines. Electronically signed by Anshul Howard 05-31-2025 12:[address] 05/31/25 10:55 Clinical History: Altered mental status Technique: Axial computed tomography images were obtained of the brain without intravenous contrast. Findings: There is diffuse cerebral atrophy, within expected limits for the patient's age. Areas of decreased attenuation are seen within the periventricular white matter, likely representing chronic small vessel ischemic disease. There is no definite sign of acute or old infarction. No intracranial hemorrhage is evident. No definite mass lesion is seen on this noncontrast examination. There is no midline shift or other form of herniation. No hydrocephalus is seen. No fracture is identified. The orbits and the visualized paranasal sinuses appear unremarkable. The mastoid air cells appear clear. Impression: 1. Cerebral atrophy and chronic small vessel ischemic disease 2. Otherwise unremarkable noncontrast CT of the brain Electronically signed by Anshul Howard 05-31-2025 13:09 PM Tibia/Fibula X-Ray 05/31/25 10:56 Clinical History: Swelling 4 views of the left lower leg are submitted for review. Findings: No fracture or dislocation is seen. There is patellofemoral compartment predominant degenerative joint disease of the left knee. No other osseous abnormality is identified. There are no radiopaque foreign bodies. Impression: 1. No definite fracture 2. Left knee osteoarthritis Electronically signed by Anshul Howard 05-31-2025 12:39 PM Duplex Scan Lower Extremity Artery 05/31/25 14:19 BIALTERAL LOWER EXTREMITY ARTERIAL DUPLEX ULTRASOUND INDICATION: Pain TECHNIQUE: Ultrasound of the bilateral lower extremity arteries was performed. A duplex Doppler study was performed, consisting of integrated 2-dimensional (2D) real-time imaging: Color flow Doppler and Doppler spectral analysis. COMPARISON: None FINDINGS: RIGHT: Blood flow velocities are within normal limits. Advanced atherosclerotic disease involving the infrapopliteal arteries resulting in severe luminal stenoses Blood flow velocities and waveforms are as follows: JUDICIAL CLERK: 51.8 cm/s, triphasic Profunda femoris: 49.6 cm/s, triphasic Proximal SFA: 45.6 cm/s, triphasic Mid SFA: 53.1 cm/s, triphasic Distal SFA: 70.5 cm/s, triphasic Popliteal: 36.2 cm/s, triphasic KRYSTAL: 13.8 cm/s, monophasic Peroneal artery: 20.8 cm/s, monophasic CARTON REPAIRER: 21.2 cm/s, monophasic DPA: 6.2 cm/s, monophasic LEFT: Blood flow velocities are within normal limits. Advanced atherosclerotic disease involving the infrapopliteal arteries resulting in severe luminal stenoses. Additional moderate atherosclerotic involvement of the mid to distal superficial femoral artery. Blood flow velocities and waveforms are as follows: JUDICIAL CLERK: 51.8 cm/s, triphasic Profunda femoris: 42.6 cm/s, triphasic Proximal SFA: 53.5 cm/s, triphasic Mid SFA: 55.1 cm/s, triphasic Distal SFA: 43.0 cm/s, triphasic Popliteal: 44.7 cm/s, triphasic KRYSTAL: 61.3 cm/s, monophasic Peroneal artery: 22.3 cm/s, monophasic CARTON REPAIRER: 16.1 cm/s, monophasic DPA: 17.4 cm/s, monophasic IMPRESSION: Bilaterally, there is advanced atherosclerotic disease involving the infrapopliteal arteries resulting in severe luminal stenoses. There is additional moderate atherosclerotic involvement of the LEFT mid to distal superficial femoral artery. Electronically signed by Frederic Stratton 05-31-2025 8:[address] 05/31/25 14:29 CT RIGHT FEMUR WITH CONTRAST: HISTORY: Pain. Infection. Concern for abscess TECHNIQUE: CT of the right femur was obtained with intravenous contrast. Coronal and sagittal reformats were created. IV CONTRAST: 100 mL of OMNIPAQUE 300 COMPARISON: FINDINGS: No acute fracture is identified. Extensive subcutaneous edema. There is a small fluid layering along the fascia just lateral to the quadriceps muscle. No organized, drainable fluid collection is identified. No soft tissues gas is identified. IMPRESSION: Diffuse subcutaneous edema. Small fluid layering along the fascial planes of the quadriceps muscle. No organized/drainable fluid collection is identified to suggest an abscess. No soft tissues gas is identified. Electronically signed by Frederic Stratton 05-31-2025 5:[address] 05/31/25 14:29 CT LEFT TIBIA-FIBULA WITH CONTRAST: HISTORY: Pain. Infection. Concern for abscess TECHNIQUE: CT of the left tibia-fibula was obtained with intravenous contrast. Coronal and sagittal reformats were created. IV CONTRAST: 100 mL of OMNIPAQUE 300 COMPARISON: FINDINGS: No acute fracture is identified. Advanced tricompartment osteoarthritis of the left knee. Extensive subcutaneous edema. There is a small fluid layering along the fascia planes posteriorly No organized, drainable fluid collection is identified No soft tissues gas is identified. Scattered soft tissue wounds. IMPRESSION: Diffuse subcutaneous edema. Small fluid layering along the fascial planes posteriorly. No organized/drainable fluid collection is identified to suggest an abscess. No soft tissues gas is identified. Electronically signed by Frederic Stratton 05-31-2025 5:16 PM
[2025-06-01] MEDS: LANTUS PER UNIT CHARGE SQ SCH ×2 (10:07→20:37)
[2025-06-01 11:08] LABS: Hemoglobin A1C 10.3 % (4.5-5.6)
[2025-06-01] MEDS: MAGNESIUM SULFATE / D5W 1 GM/100 ML BAG IV ONE (11:37)
[2025-06-01] MEDS: INSULIN ASPART PER UNIT CHARGE SC SCH ×2 (11:48→17:33)
--- NOTE | 2025-06-01 11:58 | Hospitalist Progress Note ---
Date of Service June 01, 2025 Assessment & Plan (1) Lower extremity ulceration: Plan: Kelby is a 65-year-old male with a past medical history of type II DM with HHS, HFrEF last EF less than 20%, diabetic ulcers, hypertension, hyperlipidemia who presented to the ER 06/04 elevated BSG in the 500s and elevated lactate suspicious for HHS. He was treated with an insulin drip overnight and BSG's normalized, lactate down trended but did not completely resolve. On evaluation he was found to have bilateral lower extremity calf wounds, and toe ulcers and concern for arterial insufficiency was raised. Arterial Dopplers show severe infrapopliteal stenosis with monophasic flow. Cap refill is sluggish around 4 seconds. He continues to have some discomfort mostly on the lateral/plantar aspect of his foot. No pain of the toes, he has neuropathy and diminished sensation Type II DM, HHS suspect HHS precipitated by steroid use, possible medication noncompliance after being started on prednisone for gout flare HHS resolved. pH, bicarb, BSG all returned to goal Transition from gtt. to basal bolus Glucose checks AC/at bedtime or every 6 hours while NPO Type II DM, heart healthy diet Chronic lower extremity wounds, history of calciphylaxis With history of enterococcal bacteremia Lower extremity wounds with ?ischemic component. Ulcers are present on the calfs bilaterally, and dorsum of the 1st and 2nd right toes. These have a pressure distribution however he also endorses a history of chronic foot pain at rest which improves at home when he hangs his legs over the side of the bed consistent with ischemic pain and is difficult to appreciate pedal pulses CTlower extremity left with contrast: Diffuse edema. Layering fluid. No drainable fluid collection. No tissue gas Arterial Dopplers 05/31/2025 with bilateral severe infrapopliteal stenosis. Monophasic flow in the feet bilaterally Vascular consulted. Reviewed imaging. No surgical intervention recommended at this time. Suspect more pressure in his region of his ulcers, noting that he did have a spider bite which was able to heal in the foot recently as well. Recommended repeat ABIs in the morning. Appreciate recommendations Last RUSSEL 04/2025: Right 1.14, left 1.27. No significant occlusive disease noted in the right lower extremity at that time, mild occlusive disease in the left. ? Right foot pain, tenderness, history of DFI with possible cellulitis on admission History of MSSA and enterococcal faecalis diabetic foot ulcers On admission did have an elevated lactic in the setting of suspected HHS and recent right lower extremity swelling reportedly empirically started on prednisone for possible gout Chronic nonhealing bilateral lower extremity ulcers He does not have a leukocytosis, is afebrile Was treated 05/30 at facility for possible gout flare. At that time was having persistent left heel pain. Uric acid level was elevated and had an extended NSAID course at that time. MRI was contraindicated during that workup due to 3 metal fragments in his ankle. Right foot is with erythema, no change from prior per patient. Continues to be generally tender, improving slightly when hung over the side of the bed. DDx includes cellulitis, gouty pain, and arterial insufficiency. CT is noted with diffuse edema without evidence of gas/drainable collection. Antibiotics have been continued for potential cellulitis. Concern for sluggish vascular flow and arterial insufficiency managed as noted ID consulted, recommended continuing Zosyn at this time. Appreciate recommendations History of calciphylaxis Follows with [facility] podiatry was pending outpatient follow-up as outpatient Continue wound care HFrEF No acute chest pain/chest pressure, no evidence of ACS on admission Cautious use of fluids. Clinically was volume down in the setting of HHS however is at high risk for decompensation from volume overload with excess fluids. Nearing euvolemia, IV fluids discontinued Admitted chest x-ray with possible mild vascular congestion, no overt volume overload noted. Continue metoprolol 25 mg daily, clonidine, spironolactone 12.5 mg daily,Lasix held with HHS and volume contraction on admission Restart Lasix 06/02 if doing well and near euvolemic. Will defer as appears slightly volume down and still with minimally elevated lactate today Follows with [facility] cardiology. Last encounter in March 2025 and have severely reduced LVEF 20-24%. Generally noncompliant with medications and is signed out of the hospital in ER multiple times in the past. BPH Continue Flomax Anxiety/depression Continue Seroquel/duloxetine (2) Hyperosmolar hyperglycemic state (HHS): (3) Hypertension: (4) Hyperlipidemia: (5) Type II diabetes mellitus, uncontrolled: (6) HFrEF (heart failure with reduced ejection fraction): Admission and Anticipated Discharge Date Admission Date: May 31, 2025 Subjective Seen at the bedside Continues to have bilateral although right greater than left resting discomfort in the lateral aspects of his feet. At home he feels his pain has been better if he hangs his feet over the bed or sits up. He denies fever chills or sweats. Denies lightheadedness or dizziness.Reports ulcers have been persisting for several months. He notes at least his left leg ulcers started after he fell and fractured his ankle in February and had to wear a boot and noticed that he had some ulcers where this would rub. Did have a bite to his left heel which was debrided and subsequently was able to heal in the previous months No fevers chills or sweats overnight. No chest pain or chest pressure Was seen with family at bedside, patient reports he prefers to keep his medical history private and did not wish further care discussed in the presence of his family members at that time Physical Exam Physical Exam: General: A&Ox3. NAD. Cooperative. HEENT: Atraumatic, normocephalic. Vision and hearing grossly intact Pulm: CTAB A&P. -wheezes, -rales, -rhonchi. Symmetrical chest rise. No increase in work of breathing. No respiratory distress. Cardiac: RRR, -mrg. Extremities: Left calf ulcers with poor vascular flow no bleeding, right calf ulcers with poor cap refill and no bleeding/oozing, ulcers overlying the dorsum of 1st and 2nd toes, dry. Right foot is with some mild erythema. Nontender to touch. Cap refill in the hallux and dorsum of the foot is sluggish around 4 seconds bilaterally. PT/DP pulse not able to be palpated however monophasic flow noted on ultrasound Results & Data Results & Data Vital Signs (Past 12 Hours) Vital Signs Temp Pulse Pulse Resp BP Pulse Ox O2 Del Method 06/01/25 11:31 36.5 C 98 H 18 103/68 93 Room Air 06/01/25 10:13 Room Air 06/01/25 07:31 100 H 06/01/25 07:12 36.7 C 103 H 18 108/75 97 Room Air 06/01/25 03:40 36.4 C L 90 19 106/76 94 Room Air PG Care Time/CCT Total # of Minutes Spent Total Time Spent with Patient: Total time spent is greater than 50% in coordination of care (as documented) at patient's floor/unit and/or counseling patient: Coding Level of Care Code 60027 SUB INP/OBS CARE 350MIN Diagnoses Lower extremity ulceration L97.909 Hyperosmolar hyperglycemic state (HHS) E11.00 Hypertension I10 Hyperlipidemia E78.5 Type II diabetes mellitus, uncontrolled E11.65 HFrEF (heart failure with reduced ejection fraction) I50.20
[2025-06-01 13:01] LABS: Anion Gap 9.0 (3-11); Blood Urea Nitrogen 33.0 mg/dl (6-23); Calcium 8.3 mg/dl (8.6-10.3); Carbon Dioxide 24.0 mmol/L (21-32); Chloride 102.0 mmol/L (98-107); Creatinine Clr Calc Pharmacy 91.7 ml/min; Glucose 195.0 mg/dl (70-99(Fasting)); Magnesium 2.0 mg/dl (1.7-2.4); Potassium 4.5 mmol/L (3.5-5.1); Sodium 135.0 mmol/L (136-145)
--- NOTE | 2025-06-01 14:54 | Pharmacy Report ---
Pharmacy Glycemic Short Note 2 - Date of Service June 01, 2025 - Glycemic Short BSG Results (Last 24 hours): 05/31/25 05/31/25 05/31/25 15:30 16:19 16:46 Glucose 363 H* POC Glucose 385 H* 384 H* 05/31/25 05/31/25 05/31/25 18:19 18:33 19:12 Glucose POC Glucose 248 H 247 H 190 H 05/31/25 05/31/25 05/31/25 20:16 20:43 21:20 Glucose 144 H POC Glucose 149 H 167 H 05/31/25 05/31/25 05/31/25 22:12 23:12 23:46 Glucose POC Glucose 169 H 183 H 305 H* 06/01/25 06/01/25 06/01/25 00:26 00:51 01:50 Glucose 250 H POC Glucose 264 H 195 H 06/01/25 06/01/25 06/01/25 02:22 02:48 03:38 Glucose POC Glucose 241 H 274 H 206 H 06/01/25 06/01/25 06/01/25 04:02 04:22 05:30 Glucose Cancelled 195 H POC Glucose 187 H 06/01/25 06/01/25 06/01/25 06:04 08:10 08:29 Glucose 209 H POC Glucose 192 H 213 H 06/01/25 06/01/25 11:29 12:10 Glucose 195 H POC Glucose 188 H OUTPATIENT ANTIDIABETIC REGIMEN: * Lantus 10 units SQ daily * metformin 1000mg PO BID * HbA1c 10.3% (06/01/25) ASSESSMENT: * Kelby is a 65 year old male presenting with hyperglycemia and found to be in HHS. He has a history of insulin dependent type 2 diabetes mellitus. Pharmacy has been consulted to assist with glycemic management while inpatient. * Decision was made to begin an insulin drip yesterday afternoon upon presentation (BSG 564, AG 18, CO2 22, VBG pH 7.36). BSGs trending down overnight and labs normalized by AM. Mentation was not great per reports yesterday, but has improved this AM. HHS likely precipitated by steroid use (was on prednisone taper for gout flare) and possibly medication noncompliance evidenced by elevated HbA1c. * Drip transition this AM per Dr. Devi NovoLog adjusted to a weight based stress of 1.5. Lantus adjusted to a scale up to a weight based stress of 2 based on BSG. * Kelby is starting on a heparin drip at this time, no ongoing steroids ordered, and no other glycemic stressors noted at this time. PLAN FOR INPATIENT GLYCEMIC CONTROL: * Hold outpatient oral diabetes medications * Basal insulin * Lantus 10 units SQ x1 * Lantus 0-20 units SQ BID (see eMAR for additional details) * Bolus insulin * NovoLog per scale ACHS or Q6hrs while NPO * Goal Range: Low 110 mg/dL - High 140 mg/dL * Correction Factor: 30 mg/dL/unit * Nutritional / Prandial insulin per carb ratio of 1 unit per 10 grams CHO consumed
[2025-06-01] MEDS: HEPARIN 25000 UNIT/500 ML D5W 25,000 UNITS/500 ML BAG IV SCH (15:15)
[2025-06-01] MEDS: Heparin IV Adult Wt-Based Low-Dose *NO* INITIAL Bolus Protocol IV STA (15:19)
--- NOTE | 2025-06-01 16:16 | Vascular Medicine Consultation ---
Date of Consultation June 01, 2025 Assessment & Plan (1) Peripheral arterial disease: It is unclear to me at this point if he truly has severe peripheral vascular disease contributing to these lesions. They look a little bit more pressure related than anything. It may be worth obtaining ankle-brachial indices to better delineate the flow to his feet. At this point I do not see any indication for intervention. Noninvasive workup as mentioned above would be the neck step from my perspective. History of Present Illness Reason for Consultation: peripheral vascular disease Attending Physician: Jerry Devi MD History of Present Illness Asked to evaluate this 65-year-old male with evidence of peripheral vascular disease on lower extremity noninvasive testing. He has a fairly complex history. His history is taken from him as well as a family friend at the bedside. Apparently about 6 or so weeks ago he was found unresponsive at home. He lives by himself. He was taken to [facility] for approximately 3 weeks. Since then he has been at a rehab facility where he was again found unresponsive and brought here last night. He has several superficial ulcerations on both calves. They both have dry eschars over them. On the left side he tells me that he broke his ankle and was in some type of what sounds like an ankle-foot orthosis or similar type of boot. He may have developed some of these ulcerations from pressure. It is unclear what caused them on the right but they are also in the posterior calf and they look like they may be pressure related as well. 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 At this point he has quite a bit of trouble standing and walking due to pain as well as weakness. Allergies Allergy/AdvReac Type Severity Reaction Status Date / Time cephalexin [From Keflex] Allergy Verified 09/17/23 08:13 duloxetine AdvReac Severe Verified 09/17/23 08:13 dulaglutide [From Trulicity] AdvReac Verified 09/17/23 08:13 empagliflozin AdvReac Verified 09/17/23 08:13 [From Jardiance] losartan AdvReac Verified 09/17/23 08:13 lisinopril AdvReac Uncoded 09/17/23 08:13 Home Medications Medication Instructions Recorded Confirmed Type blood-glucose meter #1 ea 05/12/21 09/17/23 Rx lancets 30 gauge #100 ea 05/12/21 09/17/23 Rx blood sugar diagnostic #400 ea 01/08/23 09/17/23 Rx Insta-Glucose 1 applic buccal DAILY PRN 05/31/25 05/31/25 History Hypoglycemia Milk of Magnesia 30 ml PO DAILY PRN Constipation 05/31/25 05/31/25 History acetaminophen 325 mg tablet 650 mg PO Q6H PRN Mild Pain (Scale 05/31/25 05/31/25 History Score 1-4) acetaminophen 325 mg tablet 650 mg PO Q6H PRN temp>101 05/31/25 05/31/25 History allopurinol 100 mg tablet 100 mg PO DAILY 05/31/25 05/31/25 History aspirin 81 mg chewable tablet 81 mg PO DAILY 05/31/25 05/31/25 History atorvastatin 80 mg tablet 80 mg PO DAILY 05/31/25 05/31/25 History bisacodyl 10 mg rectal suppository 10 mg TN DAILY PRN Constipation 05/31/25 05/31/25 History (Dulcolax (bisacodyl)) capsaicin 0.1 % topical cream 1 applic topical .DAILY FOR 10 DAYS 05/31/25 05/31/25 History carisoprodol 350 mg tablet (Soma) 350 mg PO Q6H PRN muscle pain 05/31/25 05/31/25 History clonidine 0.2 mg/24 hr weekly 0.2 mg transdermal .Q Sunday05/31/25 05/31/25 History transdermal patch colchicine 0.6 mg tablet 0.6 mg PO Q12H PRN gout flare 05/31/25 05/31/25 History duloxetine 20 mg capsule,delayed 20 mg PO DAILY 05/31/25 05/31/25 History release finasteride 5 mg tablet 5 mg PO DAILY 05/31/25 05/31/25 History furosemide 40 mg tablet 40 mg PO DAILY 05/31/25 05/31/25 History gabapentin 800 mg tablet 800 mg PO BID 05/31/25 05/31/25 History (Neurontin) glucagon 1 mg injection kit 1 mg IM DAILY PRN Hypoglycemia 05/31/25 05/31/25 History insulin glargine 100 unit/mL (3 10 unit subcut DAILY 05/31/25 05/31/25 History mL) subcutaneous pen (Lantus Solostar U-100 Insulin) magnesium oxide 500 mg capsule 400 mg PO DAILY 05/31/25 05/31/25 History metformin 1,000 mg tablet 1,000 mg PO Q12 05/31/25 05/31/25 History metoprolol succinate 25 mg 25 mg PO DAILY 05/31/25 05/31/25 History tablet,extended release 24 hr prednisone 10 mg tablet 10 mg PO .DAILY FOR 4 DAYS 05/31/25 05/31/25 History quetiapine 25 mg tablet (Seroquel) 25 mg PO DAILY 05/31/25 05/31/25 History quetiapine 25 mg tablet (Seroquel) 50 mg PO HS 05/31/25 05/31/25 History repaglinide 2 mg tablet 1 mg PO .DAILY BEFORE MEALS 05/31/25 05/31/25 History sennosides 8.6 mg-docusate sodium 1 tab-cap PO BID 05/31/25 05/31/25 History 50 mg tablet (Senna-S) sodium phosphates 19 gram-7 118 ml TN DAILY PRN Constipation 05/31/25 05/31/25 History gram/118 mL enema (Enema) spironolactone 25 mg tablet 12.5 mg PO DAILY 05/31/25 05/31/25 History tamsulosin 0.4 mg capsule 0.4 mg PO DAILY 05/31/25 05/31/25 History tramadol 50 mg tablet 50 mg PO Q4H PRN Pain 05/31/25 05/31/25 History Patient History Surgical History Previous back surgery Family History Mother Uterine cancer Father Diabetes Social History Smoking Status: Unknown if ever smoked Second Hand Exposure: No; Do You Dip or Chew Tobacco: No; Preferred Language: [place] [employer] Required: No marital status: Single Current Living Situation: Detention Current Living Situation Comment: [facility] current occupational status: unemployed Feels Safe at Home: Yes Diet: diabetic Do you think of yourself as: straight/heterosexual Gender Identity: Male Physical Exam Physical Exam: He has a good right radial pulse. The left radial pulse is dampened. Both his femoral pulses are palpable. He has a moderate amount of edema in both lower extremities. He has ulcerations as described above, worse on the left than on the right. They are all located in the posterior calf. I cannot palpate any pulses in his feet. He tells me he has a history of a brown recluse spider bite on his right great toe which he managed at home with debridement. This appears well-healed. Results & Data Vital Signs (Past 12 Hours) Vital Signs Temp Pulse Pulse Resp BP Pulse Ox O2 Del Method 06/01/25 15:23 36.5 C 93 H 18 104/72 93 Room Air 06/01/25 13:55 97 H 06/01/25 11:31 36.5 C 98 H 18 103/68 93 Room Air 06/01/25 10:13 Room Air 06/01/25 07:31 100 H 06/01/25 07:12 36.7 C 103 H 18 108/75 97 Room Air Diagnostic Findings I reviewed the contrast-enhanced left lower extremity CT which actually shows reasonable flow through his tibial arteries. The duplex exam suggests some atherosclerotic disease but the waveforms actually look fairly well-preserved. PG Care Time/CCT Total # of Minutes Spent Total Time Spent with Patient: Total time spent is greater than 50% in coordination of care (as documented) at patient's floor/unit and/or counseling patient: Coding Level of Care Code 19515 INT INP/OBS CARE 2/55MIN Diagnoses Peripheral arterial disease I73.9
[2025-06-01 21:45] LABS: ANTI-Xa, UFH(UnfractionatedHep < 0.10 IU/ml (0.3-0.7)
[2025-06-02] MEDS: INSULIN ASPART PER UNIT CHARGE SC SCH (08:17)
[2025-06-02] MEDS: SODIUM CHLORIDE 0.9% 500 ML IV ONE (08:19)
--- NOTE | 2025-06-02 09:44 | Hospitalist Progress Note ---
Date of Service June 02, 2025 Assessment & Plan (1) Lower extremity ulceration: Plan Per previous hospitalist w/ addendum (1) Lower extremity ulceration (2) Hyperosmolar hyperglycemic state (HHS): (3) Hypertension: (4) Hyperlipidemia: (5) Type II diabetes mellitus, uncontrolled: (6) HFrEF (heart failure with reduced ejection fraction): Plan: 65 yo M with type II DM with HHS, HFrEF last EF less than 20%, diabetic ulcers, hypertension, hyperlipidemia who presented to the ER 06/04 elevated BSG in the 500s and elevated lactate suspicious for HHS. He was treated with an insulin drip overnight and BSG's normalized, lactate down trended but did not completely resolve. On evaluation he was found to have bilateral lower extremity calf wounds, and toe ulcers and concern for arterial insufficiency was raised. Arterial Dopplers show severe infrapopliteal stenosis with monophasic flow. Cap refill is sluggish around 4 seconds. He continues to have some discomfort mostly on the lateral/plantar aspect of his foot. No pain of the toes, he has neuropathy and diminished sensation Type II DM, HHS suspect HHS precipitated by steroid use, possible medication noncompliance after being started on prednisone for gout flare HHS resolved. pH, bicarb, BSG all returned to goal Transitioned from gtt. to basal bolus Type II DM, heart healthy diet Chronic lower extremity wounds, history of calciphylaxis With history of enterococcal bacteremia Lower extremity wounds with ?ischemic component. Ulcers are present on the calfs bilaterally, and dorsum of the 1st and 2nd right toes. These have a pressure distribution however he also endorses a history of chronic foot pain at rest which improves at home when he hangs his legs over the side of the bed consistent with ischemic pain and is difficult to appreciate pedal pulses CTlower extremity left with contrast: Diffuse edema. Layering fluid. No drainable fluid collection. No tissue gas Arterial Dopplers 05/31/2025 with bilateral severe infrapopliteal stenosis. Monophasic flow in the feet bilaterally Vascular surgery (Dr. Ibarra) consulted. Reviewed imaging. No surgical intervention recommended at this time. Suspect more pressure in his region of his ulcers, noting that he did have a spider bite which was able to heal in the foot recently as well. Recommended repeat ABIs in the morning. Appreciate recommendations Last RUSSEL 04/2025: Right 1.14, left 1.27. No significant occlusive disease noted in the right lower extremity at that time, mild occlusive disease in the left. ? Right foot pain, tenderness, history of DFI with possible cellulitis on admission History of MSSA and enterococcal faecalis diabetic foot ulcers On admission did have an elevated lactic in the setting of suspected HHS and recent right lower extremity swelling reportedly empirically started on prednisone for possible gout Chronic nonhealing bilateral lower extremity ulcers He does not have a leukocytosis, is afebrile Was treated 05/30 at facility for possible gout flare. At that time was having persistent left heel pain. Uric acid level was elevated and had an extended NSAID course at that time. MRI was contraindicated during that workup due to 3 metal fragments in his ankle. Right foot is with erythema, no change from prior per patient. Continues to be generally tender, improving slightly when hung over the side of the bed. DDx includes cellulitis, gouty pain, and arterial insufficiency. CT is noted with diffuse edema without evidence of gas/drainable collection. Antibiotics have been continued for potential cellulitis. Concern for sluggish vascular flow and arterial insufficiency managed as noted ID consulted, pt on Zosyn -> plan to change to Unasyn per ID. Appreciate recommendations History of calciphylaxis Follows with [facility] podiatry was pending outpatient follow-up as outpatient Continue wound care HFrEF No acute chest pain/chest pressure, no evidence of ACS on admission Cautious use of fluids. Clinically was volume down in the setting of HHS however is at high risk for decompensation from volume overload with excess fluids. Nearing euvolemia, IV fluids discontinued Admitted chest x-ray with possible mild vascular congestion, no overt volume overload noted. Continue metoprolol 25 mg daily, clonidine, spironolactone 12.5 mg daily,Lasix held with HHS and volume contraction on admission Restarting Lasix Follows with [facility] cardiology. Last encounter in March 2025 and have severely reduced LVEF 20-24%. Generally noncompliant with medications and is signed out of the hospital in ER multiple times in the past. - NSVT this AM, 4 beat pt asymptomatic, cont. to monitor on tele. Consider to consult w/ cardiology if re-occurs BPH Continue Flomax Anxiety/depression Continue Seroquel/duloxetine Admission and Anticipated Discharge Date Admission Date: May 31, 2025 Subjective Pt seen in follow up Complex med. hx - initially hospitalized at [facility] on 04/16/2025 when he was found unresponsive. Diagnosed with bacteremia, PNA, leg wound. Then discharged to rehab. Currently admitted at [facility] under their service - will switch to [facility] service today Pt currently sitting up in bed in NAD. He is awake, alert, participates in conversation Denies any fever, chills, chest pain, shortness of breath, abd. pain, n/v Review of Systems Review of Systems: All systems reviewed & are unremarkable except as noted in Subjective Physical Exam Physical Exam: General: slim adult M, chronically ill appearing. A&Ox3. NAD. Cooperative. HEENT: NC/AT, EOMI Pulm: CTAB. no wheezes Cardiac: RRR Abdomen: soft, nontender Extremities: Left calf large wounds/ eschar , right calf ulcers, no bleeding/oozing. Pt is moving extremities Results & Data Results & Data Vital Signs (Past 12 Hours) Vital Signs Temp Pulse Pulse Pulse Resp BP Pulse Ox 06/02/25 07:38 36.5 C 83 18 99/72 L 94 06/02/25 03:18 36.6 C 88 19 110/79 95 06/01/25 22:42 36.6 C 100 H 18 108/79 95 06/01/25 22:00 06/01/25 21:45 107 H O2 Del Method 06/02/25 07:38 Room Air 06/02/25 03:18 Room Air 06/01/25 22:42 Room Air 06/01/25 22:00 Room Air 06/01/25 21:45 Laboratory Results 06/02/25 06/02/25 06/02/25 Range/Units 07:42 04:11 00:32 Heparin Anti-Xa, Unfract (0.3-0.7) IU/ml VBG pH (7.36-7.41) Sodium (136-145) mmol/L Potassium (3.5-5.1) mmol/L Chloride (98-107) mmol/L Carbon Dioxide (21-32) mmol/L Anion Gap (3-11) BUN (6-23) mg/dl Creatinine (0.6-1.4) mg/dl Est Cr Clr Drug Dosing ml/min eGFR BUN/Creatinine Ratio (10-20) Glucose (70-99(Fasting)) mg/dl POC Glucose 92 112 H 134 H (70-99) mg/dl Estimat Average Glucose mg/dl Hemoglobin A1c (4.5-5.6) % Lactate (0.4-2.0) mmol/L Calcium (8.6-10.3) mg/dl Phosphorus (2.5-4.9) mg/dl Magnesium (1.7-2.4) mg/dl 06/01/25 06/01/25 06/01/25 Range/Units 20:57 20:21 16:24 Heparin Anti-Xa, Unfract < 0.10 L (0.3-0.7) IU/ml VBG pH (7.36-7.41) Sodium (136-145) mmol/L Potassium (3.5-5.1) mmol/L Chloride (98-107) mmol/L Carbon Dioxide (21-32) mmol/L Anion Gap (3-11) BUN (6-23) mg/dl Creatinine (0.6-1.4) mg/dl Est Cr Clr Drug Dosing ml/min eGFR BUN/Creatinine Ratio (10-20) Glucose (70-99(Fasting)) mg/dl POC Glucose 212 H 170 H (70-99) mg/dl Estimat Average Glucose mg/dl Hemoglobin A1c (4.5-5.6) % Lactate (0.4-2.0) mmol/L Calcium (8.6-10.3) mg/dl Phosphorus (2.5-4.9) mg/dl Magnesium (1.7-2.4) mg/dl 06/01/25 06/01/25 06/01/25 Range/Units 12:10 11:29 10:21 Heparin Anti-Xa, Unfract (0.3-0.7) IU/ml VBG pH 7.41 (7.36-7.41) Sodium 135 L (136-145) mmol/L Potassium 4.5 (3.5-5.1) mmol/L Chloride 102 (98-107) mmol/L Carbon Dioxide 24 (21-32) mmol/L Anion Gap 9 (3-11) BUN 33 H (6-23) mg/dl Creatinine 0.92 (0.6-1.4) mg/dl Est Cr Clr Drug Dosing 91.7 ml/min eGFR 92.89 BUN/Creatinine Ratio 35.9 H (10-20) Glucose 195 H (70-99(Fasting)) mg/dl POC Glucose 188 H (70-99) mg/dl Estimat Average Glucose mg/dl Hemoglobin A1c (4.5-5.6) % Lactate 2.1 H* (0.4-2.0) mmol/L Calcium 8.3 L (8.6-10.3) mg/dl Phosphorus 2.5 (2.5-4.9) mg/dl Magnesium 2.0 (1.7-2.4) mg/dl 06/01/25 Range/Units 04:22 Heparin Anti-Xa, Unfract (0.3-0.7) IU/ml VBG pH (7.36-7.41) Sodium (136-145) mmol/L Potassium (3.5-5.1) mmol/L Chloride (98-107) mmol/L Carbon Dioxide (21-32) mmol/L Anion Gap (3-11) BUN (6-23) mg/dl Creatinine (0.6-1.4) mg/dl Est Cr Clr Drug Dosing ml/min eGFR BUN/Creatinine Ratio (10-20) Glucose (70-99(Fasting)) mg/dl POC Glucose (70-99) mg/dl Estimat Average Glucose 249 mg/dl Hemoglobin A1c 10.3 H (4.5-5.6) % Lactate (0.4-2.0) mmol/L Calcium (8.6-10.3) mg/dl Phosphorus (2.5-4.9) mg/dl Magnesium (1.7-2.4) mg/dl Medications Administered Current Inpatient Medications Allopurinol (Allopurinol 100 Mg Tab) 100 mg PO DAILY [facility] Stop: 07/01/25 08:59 Last Admin: 06/02/25 08:09 Dose: 100 mg Aspirin (Aspirin 81 Mg Chew) 81 mg PO DAILY DAO Stop: 07/01/25 08:59 Last Admin: 06/02/25 08:08 Dose: 81 mg Atorvastatin Calcium (Atorvastatin 40 Mg Tab) 80 mg PO DAILY DAO Stop: 07/01/25 08:59 Last Admin: 06/02/25 08:09 Dose: 80 mg Bisacodyl (Bisacodyl 10 Mg Supp) 10 mg SD DAILY PRN PRN Reason: Constipation Stop: 06/30/25 16:25 Clonidine HCl (Clonidine Hcl 0.2 Mg/24 Hr Transderm Sys) 1 patch TD Th@0900 DAO Stop: 07/04/25 08:59 Dextrose (Dextrose 50% 50 Ml Syringe) 25 - 50 ml IV UD PRN; Protocol PRN Reason: Hypoglycemia Protocol Stop: 06/30/25 11:44 Last Admin: 06/01/25 02:29 Dose: 25 ml Duloxetine HCl (Duloxetine Hcl 20 Mg Cap) 20 mg PO DAILY DAO Stop: 07/01/25 08:59 Last Admin: 06/02/25 08:09 Dose: 20 mg Finasteride (Finasteride 5 Mg Tab) 5 mg PO DAILY DAO Stop: 07/01/25 08:59 Last Admin: 06/02/25 09:11 Dose: 5 mg Gabapentin (Gabapentin 800 Mg Tab) 800 mg PO BID DAO Stop: 06/30/25 20:59 Last Admin: 06/02/25 08:09 Dose: 800 mg Glucagon (Glucagon For Inj 1 Mg Vial) 1 mg SQ UD PRN; Protocol PRN Reason: Hypoglycemia Protocol Stop: 06/30/25 11:44 Glucose (Glucose 40% Gel 15 Gm Tube) 15 - 30 gm PO UD PRN; Protocol PRN Reason: Hypoglycemia Protocol Stop: 06/30/25 11:44 Glucose (Glucose 10 Tab/Tube) 4 - 8 tab PO UD PRN; Protocol PRN Reason: Hypoglycemia Protocol Stop: 06/30/25 11:44 Heparin Sodium (Porcine) (Heparin Sod 5,000 Unit/0.5 Ml Vial) 5,000 units SQ Q12 DAO Stop: 06/30/25 20:59 Last Admin: 06/01/25 08:17 Dose: 5,000 units Piperacillin Sod/Tazobactam Sod (Zosyn) 4.5 gm in 100 mls @ 25 mls/hr IV Q8H DAO; Protocol Stop: 06/07/25 15:59 Last Admin: 06/02/25 08:09 Dose: 25 mls/hr Sodium Chloride (Nss) 500 mls @ 80 mls/hr IV .Q6H15M ONE Stop: 06/02/25 14:33 Insulin Aspart (Insulin Aspart Per Unit Charge) 0 units SC ACHS DAO Stop: 07/02/25 07:29 Last Admin: 06/02/25 08:17 Dose: 3 units Insulin Glargine (Lantus Per Unit Charge) 15 units SC DAILY [facility] Stop: 07/02/25 11:29 Metoprolol Succinate (Metoprolol Succ 25mg Ext Rel Tab) 25 mg PO DAILY DAO Stop: 07/01/25 08:59 Last Admin: 06/02/25 08:10 Dose: 25 mg Miscellaneous (Carbohydrates For Hypoglycemia ) 15 - 30 gm PO UD PRN PRN Reason: Hypoglycemia Protocol Stop: 06/30/25 11:44 Miscellaneous (Remove Clonidine Patch) 1 each N/A Q7D@0859 DAO Stop: 07/04/25 08:58 Miscellaneous (Check Clonidine Patch Placement) 1 each N/A QS DAO Stop: 07/01/25 00:00 Last Admin: 06/02/25 08:17 Dose: Not Given Miscellaneous Information (Pharmacy Glycemic Mgmt Consult) 1 each N/A UD PRN PRN Reason: Consult Stop: 06/30/25 16:25 Quetiapine Fumarate (Quetiapine Fumarate 25 Mg Tablet) 50 mg PO HS [facility] Stop: 06/30/25 20:59 Last Admin: 06/01/25 20:23 Dose: 50 mg Quetiapine Fumarate (Quetiapine Fumarate 25 Mg Tablet) 25 mg PO DAILY DAO Stop: 07/01/25 08:59 Last Admin: 06/02/25 08:09 Dose: 25 mg Senna/Docusate Sodium (Docusate Sodium/Senna 50/8.6mg Tab) 1 tab PO BID DAO Stop: 06/30/25 20:59 Last Admin: 06/02/25 08:11 Dose: Not Given Tamsulosin HCl (Tamsulosin Hcl 0.4 Mg Cap) 0.4 mg PO DAILY DAO Stop: 07/01/25 08:59 Last Admin: 06/02/25 08:09 Dose: 0.4 mg Tramadol HCl (Tramadol Hcl 50 Mg Tablet) 50 mg PO Q4H PRN PRN Reason: Pain Stop: 06/30/25 16:25 Last Admin: 06/02/25 09:11 Dose: 50 mg
--- NOTE | 2025-06-02 10:14 | Infectious Disease Progress Nt ---
Date of Service June 02, 2025 Assessment & Plan (1) Lower extremity ulceration: (2) Type II diabetes mellitus, uncontrolled: (3) Peripheral arterial disease: Plan Problems: #LLE eschar with cellulitis #DM2 #PVD Micro: 05/31 BCx x2: NGTD Abx: Zosyn 05/31 - present 65 yo M with DM2, HTN, HLD, CHF, CKD, BPH, gout, GERD, emphysema, PVD sent from [place] to [facility] for evaluation of elevated BG, found to have LLE esc yuli/cellulitis. He was recently being worked up for gout and was started on prednisone on 05/28 for 5 days. Found to have urinary incontinence 05/31 AM as well as drowsiness, and pt was unable to articulate what was bothering him. BG was 450 at his facility. On presentation, pt was afebrile, HR 115, BP 111/84, RR 28, 100% on 2 L NC. Labs showed WBC 7.81, lactate 5.2, AST 68, ALT 57, Tbili 1.2, CRP 4.5. CXR with MIRNA interstitial prominence and mild LLL linear and patchy opacity, possible combination of pulmonary vascular congestion and L lung pneumonia. CT head unremarkable. L tib/fib XR with no definite fracture. LLE arterial duplex with advanced atherosclerotic disease involving infrapopliteal arteries resulting in severe luminal stenoses, and additional moderate atherosclerotic involvement of L mid to distal superficial femoral artery. LLE CT showed diffuse subcutaneous edema, small fluid layering along fascial planes posteriorly, no organized/drainable fluid collection, no soft tissue gas. On my evaluation, pt reports that he fell and fractured his L ankle--unclear when, perhaps in February. He went to the hospital and was given a boot to wear. He worked in his shop with the boot on, but then developed a wound from the boot rubbing on his skin. He shows me a picture on his phone from 04/02 with wounds on his LLE. Recommendations: - Narrowed Zosyn to Unasyn - Likely transition to Augmentin on discharge to complete a total 7 day course through 06/06 - Will follow-up vascular surgery and wound care recs Will continue to follow Admission and Anticipated Discharge Date Admission Date: May 31, 2025 Subjective Subsequent visit was provided via telemedicine using two-way real-time interactive telecommunication between the patient and the telemedicine provider. For the duration of the visit, the provider was performing the assessment from a different facility than the patient. This includesuse of bluetooth stethoscope forauscultationperformed by the telepresenter that the telemedicine provider can hear if described in the physical exam. Data Analyst contact information: Please call [facility] . (Phone Number For Physician Use Only) After establishing a telemedicine visit, patient was: Patient was verified with two unique identifiers, Patient/authorized rep acknowledged consent and understanding and Gave permission to continue telehealth session Time Spent with Patient: Subsequent => 25 min No acute events Continues to have some pain in his legs Review of System A complete ROS was performed and is negative except as mentioned in the HPI. Physical Exam Physical Exam: GEN: laying in bed in NAD. RESP: No increased work of breathing SKIN: Eschar on L posterior calf > R posterior calf, with some surrounding erythema/warmth. No drainage NEURO: Alert and oriented. Answers all questions appropriately. Speech not slurred. PSYCH: Normal mood, affect appropriate. Results & Data Vital Signs (Past 12 Hours) Vital Signs Temp Pulse Pulse Resp BP Pulse Ox O2 Del Method 06/02/25 10:10 36.4 C L 98 H 20 106/70 94 Room Air 06/02/25 07:38 36.5 C 83 18 99/72 L 94 Room Air 06/02/25 03:18 36.6 C 88 19 110/79 95 Room Air 06/01/25 22:42 36.6 C 100 H 18 108/79 95 Room Air Laboratory Results [facility] 06/01/25 12:10 Sodium 135 L Potassium 4.5 Chloride 102 Carbon Dioxide 24 BUN 33 H Creatinine 0.92 Glucose 195 H Calcium 8.3 L Medications Administered Current Inpatient Medications Allopurinol (Allopurinol 100 Mg Tab) 100 mg PO DAILY [facility] Stop: 07/01/25 08:59 Last Admin: 06/02/25 08:09 Dose: 100 mg Aspirin (Aspirin 81 Mg Chew) 81 mg PO DAILY DAO Stop: 07/01/25 08:59 Last Admin: 06/02/25 08:08 Dose: 81 mg Atorvastatin Calcium (Atorvastatin 40 Mg Tab) 80 mg PO DAILY DAO Stop: 07/01/25 08:59 Last Admin: 06/02/25 08:09 Dose: 80 mg Bisacodyl (Bisacodyl 10 Mg Supp) 10 mg [place] DAILY PRN PRN Reason: Constipation Stop: 06/30/25 16:25 Clonidine HCl (Clonidine Hcl 0.2 Mg/24 Hr Transderm Sys) 1 patch TD Th@0900 DAO Stop: 07/04/25 08:59 Dextrose (Dextrose 50% 50 Ml Syringe) 25 - 50 ml IV UD PRN; Protocol PRN Reason: Hypoglycemia Protocol Stop: 06/30/25 11:44 Last Admin: 06/01/25 02:29 Dose: 25 ml Duloxetine HCl (Duloxetine Hcl 20 Mg Cap) 20 mg PO DAILY DAO Stop: 07/01/25 08:59 Last Admin: 06/02/25 08:09 Dose: 20 mg Finasteride (Finasteride 5 Mg Tab) 5 mg PO DAILY DAO Stop: 07/01/25 08:59 Last Admin: 06/02/25 09:11 Dose: 5 mg Gabapentin (Gabapentin 800 Mg Tab) 800 mg PO BID DAO Stop: 06/30/25 20:59 Last Admin: 06/02/25 08:09 Dose: 800 mg Glucagon (Glucagon For Inj 1 Mg Vial) 1 mg SQ UD PRN; Protocol PRN Reason: Hypoglycemia Protocol Stop: 06/30/25 11:44 Glucose (Glucose 40% Gel 15 Gm Tube) 15 - 30 gm PO UD PRN; Protocol PRN Reason: Hypoglycemia Protocol Stop: 06/30/25 11:44 Glucose (Glucose 10 Tab/Tube) 4 - 8 tab PO UD PRN; Protocol PRN Reason: Hypoglycemia Protocol Stop: 06/30/25 11:44 Heparin Sodium (Porcine) (Heparin Sod 5,000 Unit/0.5 Ml Vial) 5,000 units SQ Q12 DAO Stop: 06/30/25 20:59 Last Admin: 06/01/25 08:17 Dose: 5,000 units Piperacillin Sod/Tazobactam Sod (Zosyn) 4.5 gm in 100 mls @ 25 mls/hr IV Q8H DAO; Protocol Stop: 06/07/25 15:59 Last Admin: 06/02/25 08:09 Dose: 25 mls/hr Sodium Chloride (Nss) 500 mls @ 80 mls/hr IV .Q6H15M ONE Stop: 06/02/25 14:33 Last Infusion: 06/02/25 10:05 Dose: 0 mls/hr Insulin Aspart (Insulin Aspart Per Unit Charge) 0 units SC ACHS DAO Stop: 07/02/25 07:29 Last Admin: 06/02/25 08:17 Dose: 3 units Insulin Glargine (Lantus Per Unit Charge) 15 units SC DAILY DAO Stop: 07/02/25 11:29 Metoprolol Succinate (Metoprolol Succ 25mg Ext Rel Tab) 25 mg PO DAILY DAO Stop: 07/01/25 08:59 Last Admin: 06/02/25 08:10 Dose: 25 mg Miscellaneous (Carbohydrates For Hypoglycemia ) 15 - 30 gm PO UD PRN PRN Reason: Hypoglycemia Protocol Stop: 06/30/25 11:44 Miscellaneous (Remove Clonidine Patch) 1 each N/A Q7D@0859 [facility] Stop: 07/04/25 08:58 Miscellaneous (Check Clonidine Patch Placement) 1 each N/A QS DAO Stop: 07/01/25 00:00 Last Admin: 06/02/25 08:17 Dose: Not Given Miscellaneous Information (Pharmacy Glycemic Mgmt Consult) 1 each N/A UD PRN PRN Reason: Consult Stop: 06/30/25 16:25 Quetiapine Fumarate (Quetiapine Fumarate 25 Mg Tablet) 50 mg PO HS [facility] Stop: 06/30/25 20:59 Last Admin: 06/01/25 20:23 Dose: 50 mg Quetiapine Fumarate (Quetiapine Fumarate 25 Mg Tablet) 25 mg PO DAILY DAO Stop: 07/01/25 08:59 Last Admin: 06/02/25 08:09 Dose: 25 mg Senna/Docusate Sodium (Docusate Sodium/Senna 50/8.6mg Tab) 1 tab PO BID DAO Stop: 06/30/25 20:59 Last Admin: 06/02/25 08:11 Dose: Not Given Tamsulosin HCl (Tamsulosin Hcl 0.4 Mg Cap) 0.4 mg PO DAILY [facility] Stop: 07/01/25 08:59 Last Admin: 06/02/25 08:09 Dose: 0.4 mg Tramadol HCl (Tramadol Hcl 50 Mg Tablet) 50 mg PO Q4H PRN PRN Reason: Pain Stop: 06/30/25 16:25 Last Admin: 06/02/25 09:11 Dose: 50 mg
--- NOTE | 2025-06-02 10:28 | Ultrasound Report ---
US ankle/brachial index ltd HISTORY: 65 years-old Male PAD peripheral arterial disease COMPARISON: 05/31/2025 TECHNIQUE: Segmental pressures with ABIs were obtained FINDINGS: [id number]; dorsalis pedis-134 (1.23); posterior tibial-100 (0.92); toe brachial index-89 (0. 82); RUSSEL-1.23 Left-dorsalis pedis-95 (0.87); posterior tibial-143 ( 1.31); toe brachial index index-84 (0.77); RUSSEL- 1.31 IMPRESSION: 1. Right-sided RUSSEL of 1.23 2. Left-sided RUSSEL of 1.31 ACT 112: Negative or not required by law. The above report was generated using voice recognition software. It may contain grammatical, syntax o r spelling errors. Electronically signed by: Thaddeus Thompson M.D. 06/02/2025 10:27 AM
[2025-06-02] MEDS: LANTUS PER UNIT CHARGE SC SCH (13:20)
--- NOTE | 2025-06-02 13:24 | Vascular Medicine ProgressNote ---
Date of Service June 02, 2025 Assessment & Plan (1) Peripheral arterial disease: Plan: Would obtain ankle-brachial indices of the lower extremities in the vascular lab. Not urgent but will help determine next steps. No other recommendations from my standpoint. Admission and Anticipated Discharge Date Admission Date: May 31, 2025 Subjective Overall he looks and feels better. No significant clinical change from my perspective. Physical Exam Physical Exam: No change from yesterday. Results & Data Vital Signs (Past 12 Hours) Vital Signs Temp Pulse Pulse Pulse Resp BP Pulse Ox 06/02/25 10:10 36.4 C L 98 H 20 106/70 94 06/02/25 08:00 83 06/02/25 07:38 36.5 C 83 18 99/72 L 94 06/02/25 03:18 36.6 C 88 19 110/79 95 O2 Del Method 06/02/25 10:10 Room Air 06/02/25 08:00 06/02/25 07:38 Room Air 06/02/25 03:18 Room Air PG Care Time/CCT Total # of Minutes Spent Total Time Spent with Patient: Total time spent is greater than 50% in coordination of care (as documented) at patient's floor/unit and/or counseling patient: Coding Level of Care Code 47322 SUB INP/OBS CARE 12/06MIN Diagnoses Peripheral arterial disease I73.9
--- NOTE | 2025-06-02 13:47 | Pharmacy Report ---
Pharmacy Glycemic Short Note 2 - Date of Service June 02, 2025 - Glycemic Short BSG Results (Last 24 hours): 06/01/25 06/01/25 06/02/25 16:24 20:21 00:32 POC Glucose 170 H 212 H 134 H 06/02/25 06/02/25 06/02/25 04:11 07:42 11:25 POC Glucose 112 H 92 118 H OUTPATIENT ANTIDIABETIC REGIMEN: * Lantus 10 units SQ daily * metformin 1000mg PO BID * HbA1c 10.3% (06/01/25) ASSESSMENT: 06/02 * Kelby received 29 units of insulin yesterday (20 were basal), plus insulin from the drip. * Fasting BSG this AM below goal range, decrease basal insulin by 20% and aim for more balanced basal bolus regimen. * Carbohydrate ratio tightened as BSGs trended up throughout the day, he is on IV Zosyn at this time. 06/01 * Kelby is a 65 year old male presenting with hyperglycemia and found to be in HHS. He has a history of insulin dependent type 2 diabetes mellitus. Pharmacy has been consulted to assist with glycemic management while inpatient. * Decision was made to begin an insulin drip yesterday afternoon upon presentation (BSG 564, AG 18, CO2 22, VBG pH 7.36). BSGs trending down overnight and labs normalized by AM. Mentation was not great per reports yesterday, but has improved this AM. HHS likely precipitated by steroid use (was on prednisone taper for gout flare) and possibly medication noncompliance evidenced by elevated HbA1c. * Drip transition this AM per Dr. Devi, NovoLog adjusted to a weight based stress of 1.5. Lantus adjusted to a scale up to a weight based stress of 2 based on BSG. * Kelby is starting on a heparin drip at this time, no ongoing steroids ordered, and no other glycemic stressors noted at this time. PLAN FOR INPATIENT GLYCEMIC CONTROL: * Hold outpatient oral diabetes medications * Basal insulin * Lantus 15 SQ daily * Bolus insulin * NovoLog per scale ACHS or Q6hrs while NPO * Goal Range: Low 110 mg/dL - High 140 mg/dL * Correction Factor: 30 mg/dL/unit * Nutritional / Prandial insulin per carb ratio of 1 unit per 8 grams CHO consumed
[2025-06-02] MEDS: AMPICILLIN/SULBACTAM SOD 3,000 MG/100 ML BAG IV SCH (17:19)
[2025-06-03 06:23] LABS: Hematocrit (blood only) 39.0 % (42.0-52.0); Hemoglobin 12.4 g/dl (14.0-18.0); Mean Corpuscular Hemoglobin 28.4 pg (25.0-34.0); Mean Corpuscular Volume 89.2 fL (80.0-100.0); Platelet Count 261 K/uL (130-400); RDW Standard Deviation 60.1 fL (36.4-46.3); Red Blood Count 4.37 M/uL (4.70-6.10); White Blood Count 8.82 K/ul (4.8-10.8)
[2025-06-03 06:44] LABS: Anion Gap 8.0 (3-11); Blood Urea Nitrogen 32.0 mg/dl (6-23); Calcium 8.7 mg/dl (8.6-10.3); Carbon Dioxide 28.0 mmol/L (21-32); Chloride 102.0 mmol/L (98-107); Creatinine Clr Calc Pharmacy 72.7 ml/min; Glucose 70.0 mg/dl (70-99(Fasting)); Magnesium 2.1 mg/dl (1.7-2.4); Potassium 4.3 mmol/L (3.5-5.1); Sodium 138.0 mmol/L (136-145)
--- NOTE | 2025-06-03 08:13 | Pharmacy Report ---
Pharmacy Glycemic Short Note 2 - Date of Service June 03, 2025 - Glycemic Short BSG Results (Last 24 hours): 06/02/25 06/02/25 06/02/25 11:25 16:32 20:15 Glucose POC Glucose 118 H 125 H 157 H 06/03/25 06/03/25 06/03/25 05:50 07:27 07:28 Glucose 70 POC Glucose 67 L* 69 L* 06/03/25 08:05 Glucose POC Glucose 69 L* OUTPATIENT ANTIDIABETIC REGIMEN: * Lantus 10 units SQ daily * metformin 1000mg PO BID * HbA1c 10.3% (06/01/25) ASSESSMENT: 06/03: * Kelby received 22 units of insulin yesterday (15 were basal) * Fasting BSG this AM below goal range, first reading slightly hypoglycemic, will decrease basal insulin again and wait until lunch or administration. * No changes to NovoLog at this time, he was switched to IV Unasyn. 06/02: * Kelby received 29 units of insulin yesterday (20 were basal), plus insulin from the drip. * Fasting BSG this AM below goal range, decrease basal insulin by 20% and aim for more balanced basal bolus regimen. * Carbohydrate ratio tightened as BSGs trended up throughout the day, he is on IV Zosyn at this time. 06/01 * Kelby is a 65 year old male presenting with hyperglycemia and found to be in HHS. He has a history of insulin dependent type 2 diabetes mellitus. Pharmacy has been consulted to assist with glycemic management while inpatient. * Decision was made to begin an insulin drip yesterday afternoon upon presentation (BSG 564, AG 18, CO2 22, VBG pH 7.36). BSGs trending down overnight and labs normalized by AM. Mentation was not great per reports yesterday, but has improved this AM. HHS likely precipitated by steroid use (was on prednisone taper for gout flare) and possibly medication noncompliance evidenced by elevated HbA1c. * Drip transition this AM per Dr. Devi, NovoLog adjusted to a weight based stress of 1.5. Lantus adjusted to a scale up to a weight based stress of 2 based on BSG. * Kelby is starting on a heparin drip at this time, no ongoing steroids ordered, and no other glycemic stressors noted at this time. PLAN FOR INPATIENT GLYCEMIC CONTROL: * Hold outpatient oral diabetes medications * Basal insulin * Lantus 15 SQ daily * Bolus insulin * NovoLog per scale ACHS or Q6hrs while NPO * Goal Range: Low 110 mg/dL - High 140 mg/dL * Correction Factor: 30 mg/dL/unit * Nutritional / Prandial insulin per carb ratio of 1 unit per 8 grams CHO consumed
[2025-06-03] MEDS: FUROSEMIDE 40 MG TAB PO SCH (09:43)
--- NOTE | 2025-06-03 09:44 | Infectious Disease Progress Nt ---
Date of Service June 03, 2025 Assessment & Plan (1) Lower extremity ulceration: (2) Type II diabetes mellitus, uncontrolled: (3) Peripheral arterial disease: Plan Problems: #LLE eschar with ?cellulitis #DM2 #PVD Micro: 05/31 BCx x2: NGTD Abx: Zosyn 05/31 - 06/02 Unasyn 06/02 - present 65 yo M with DM2, HTN, HLD, CHF, CKD, BPH, gout, GERD, emphysema, PVD sent from [place] to [facility] for evaluation of elevated BG, found to have LLE wound. He was recently being worked up for gout and was started on prednisone on 05/28 for 5 days. Found to have urinary incontinence 05/31 AM as well as drowsiness, and pt was unable to articulate what was bothering him. BG was 450 at his facility. On presentation, pt was afebrile, HR 115, BP 111/84, RR 28, 100% on 2 L NC. Labs showed WBC 7.81, lactate 5.2, AST 68, ALT 57, Tbili 1.2, CRP 4.5. CXR with MIRNA interstitial prominence and mild LLL linear and patchy opacity, possible combination of pulmonary vascular congestion and L lung pneumonia. CT head unremarkable. L tib/fib XR with no definite fracture. LLE arterial duplex with advanced atherosclerotic disease involving infrapopliteal arteries resulting in severe luminal stenoses, and additional moderate atherosclerotic involvement of L mid to distal superficial femoral artery. LLE CT showed diffuse subcutaneous edema, small fluid layering along fascial planes posteriorly, no organized/drainable fluid collection, no soft tissue gas. On my evaluation, pt reports that he fell and fractured his L ankle--unclear when, perhaps in February. He went to the hospital and was given a boot to wear. He worked in his shop with the boot on, but then developed a wound from the boot rubbing on his skin. He shows me a picture on his phone from 04/02 with wounds on his LLE. Unclear etiology of wounds--vascular surgery consulted, felt more likely related to pressure rather than vascular disease. Seen by wound care on 06/03. Has large eschar over L posterior calf with slight surrounding erythema, no drainage, not boggy. Recommendations: - Unclear that pt's wound is infected at this time--has significant eschar on L posterior calf, but not boggy on exam. Will transition to Augmentin through 06/06 for 7 day course Will sign off Admission and Anticipated Discharge Date Admission Date: May 31, 2025 Subjective Subsequent visit was provided via telemedicine using two-way real-time interactive telecommunication between the patient and the telemedicine provider. For the duration of the visit, the provider was performing the assessment from a different facility than the patient. This includesuse of bluetooth stethoscope forauscultationperformed by the telepresenter that the telemedicine provider can hear if described in the physical exam. Senior Account Manager contact information: Please call [facility] . (Phone Number For Physician Use Only) After establishing a telemedicine visit, patient was: Patient was verified with two unique identifiers, Patient/authorized rep acknowledged consent and understanding and Gave permission to continue telehealth session Time Spent with Patient: Subsequent => 25 min No acute events Review of System A complete ROS was performed and is negative except as mentioned in the HPI. Physical Exam Physical Exam: GEN: laying in bed in NAD. RESP: No increased work of breathing SKIN: Eschar on L posterior calf > R posterior calf, with slight surrounding erythema. Discoloration of feet NEURO: Alert and oriented. Answers all questions appropriately. Speech not slurred. PSYCH: Normal mood, affect appropriate. Results & Data Vital Signs (Past 12 Hours) Vital Signs Temp Pulse Resp BP Pulse Ox O2 Del Method 06/03/25 07:24 36.4 C L 92 H 18 120/85 95 Room Air 06/03/25 03:11 36.4 C L 102 H 18 119/73 90 Room Air 06/02/25 23:16 36.6 C 106 H 18 105/75 95 Nasal Cannula 06/02/25 22:45 Room Air Laboratory Results Short CBC 06/03/25 Range/Units 05:50 WBC 8.82 (4.8-10.8) K/ul Hgb 12.4 L (14.0-18.0) g/dl Hct 39.0 L (42.0-52.0) % Plt Count 261 (130-400) K/uL BMP 06/03/25 05:50 Sodium 138 Potassium 4.3 Chloride 102 Carbon Dioxide 28 BUN 32 H Creatinine 1.16 Glucose 70 Calcium 8.7 Medications Administered Current Inpatient Medications Allopurinol (Allopurinol 100 Mg Tab) 100 mg PO DAILY DAO Stop: 07/01/25 08:59 Last Admin: 06/03/25 09:42 Dose: 100 mg Aspirin (Aspirin 81 Mg Chew) 81 mg PO DAILY DAO Stop: 07/01/25 08:59 Last Admin: 06/03/25 09:41 Dose: 81 mg Atorvastatin Calcium (Atorvastatin 40 Mg Tab) 80 mg PO DAILY DAO Stop: 07/01/25 08:59 Last Admin: 06/03/25 09:41 Dose: 80 mg Bisacodyl (Bisacodyl 10 Mg Supp) 10 mg [place] DAILY PRN PRN Reason: Constipation Stop: 06/30/25 16:25 Clonidine HCl (Clonidine Hcl 0.2 Mg/24 Hr Transderm Sys) 1 patch TD Th@0900 DAO Stop: 07/04/25 08:59 Dextrose (Dextrose 50% 50 Ml Syringe) 25 - 50 ml IV UD PRN; Protocol PRN Reason: Hypoglycemia Protocol Stop: 06/30/25 11:44 Last Admin: 06/01/25 02:29 Dose: 25 ml Duloxetine HCl (Duloxetine Hcl 20 Mg Cap) 20 mg PO DAILY DAO Stop: 07/01/25 08:59 Last Admin: 06/03/25 09:41 Dose: 20 mg Finasteride (Finasteride 5 Mg Tab) 5 mg PO DAILY DAO Stop: 07/01/25 08:59 Last Admin: 06/03/25 09:43 Dose: 5 mg Furosemide (Furosemide 40 Mg Tab) 40 mg PO DAILY DAO Stop: 07/03/25 08:59 Last Admin: 06/03/25 09:43 Dose: 40 mg Gabapentin (Gabapentin 800 Mg Tab) 800 mg PO BID DAO Stop: 06/30/25 20:59 Last Admin: 06/03/25 09:41 Dose: 800 mg Glucagon (Glucagon For Inj 1 Mg Vial) 1 mg SQ UD PRN; Protocol PRN Reason: Hypoglycemia Protocol Stop: 06/30/25 11:44 Glucose (Glucose 40% Gel 15 Gm Tube) 15 - 30 gm PO UD PRN; Protocol PRN Reason: Hypoglycemia Protocol Stop: 06/30/25 11:44 Glucose (Glucose 10 Tab/Tube) 4 - 8 tab PO UD PRN; Protocol PRN Reason: Hypoglycemia Protocol Stop: 06/30/25 11:44 Heparin Sodium (Porcine) (Heparin Sod 5,000 Unit/0.5 Ml Vial) 5,000 units SQ Q12 DAO Stop: 06/30/25 20:59 Last Admin: 06/01/25 08:17 Dose: 5,000 units Ampicillin Sodium/Sulbactam Sodium (Unasyn) 3,000 mg in 100 mls @ 200 mls/hr IV Q6H DAO Stop: 06/07/25 15:59 Last Infusion: 06/03/25 11:09 Dose: Infused Insulin Aspart (Insulin Aspart Per Unit Charge) 0 units SC ACHS DAO Stop: 07/02/25 07:29 Last Admin: 06/03/25 13:06 Dose: 2 units Insulin Glargine (Lantus Per Unit Charge) 12 units SC DAILY DAO Stop: 07/03/25 11:29 Last Admin: 06/03/25 12:20 Dose: 12 units Metoprolol Succinate (Metoprolol Succ 25mg Ext Rel Tab) 25 mg PO DAILY ADO Stop: 07/01/25 08:59 Last Admin: 06/03/25 09:41 Dose: 25 mg Miscellaneous (Carbohydrates For Hypoglycemia ) 15 - 30 gm PO UD PRN PRN Reason: Hypoglycemia Protocol Stop: 06/30/25 11:44 Miscellaneous (Remove Clonidine Patch) 1 each N/A Q7D@0859 [facility] Stop: 07/04/25 08:58 Miscellaneous (Check Clonidine Patch Placement) 1 each N/A QS [facility] Stop: 07/01/25 00:00 Last Admin: 06/03/25 00:19 Dose: Not Given Miscellaneous Information (Pharmacy Glycemic Mgmt Consult) 1 each N/A UD PRN PRN Reason: Consult Stop: 06/30/25 16:25 Quetiapine Fumarate (Quetiapine Fumarate 25 Mg Tablet) 50 mg PO HS [facility] Stop: 06/30/25 20:59 Last Admin: 06/02/25 21:45 Dose: 50 mg Quetiapine Fumarate (Quetiapine Fumarate 25 Mg Tablet) 25 mg PO DAILY DAO Stop: 07/01/25 08:59 Last Admin: 06/03/25 09:42 Dose: 25 mg Senna/Docusate Sodium (Docusate Sodium/Senna 50/8.6mg Tab) 1 tab PO BID [facility] Stop: 06/30/25 20:59 Last Admin: 06/03/25 09:44 Dose: 1 tab Tamsulosin HCl (Tamsulosin Hcl 0.4 Mg Cap) 0.4 mg PO DAILY DAO Stop: 07/01/25 08:59 Last Admin: 06/03/25 09:42 Dose: 0.4 mg Tramadol HCl (Tramadol Hcl 50 Mg Tablet) 50 mg PO Q4H PRN PRN Reason: Pain Stop: 06/30/25 16:25 Last Admin: 06/02/25 13:18 Dose: 50 mg
--- NOTE | 2025-06-03 11:03 | Vascular Medicine ProgressNote ---
Date of Service June 03, 2025 Assessment & Plan (1) Peripheral arterial disease: Plan: Ankle brachial indices appear normal. I believe the wounds on his posterior calves are more likely pressure related. I do not see an indication for intervention from my standpoint. Local wound care and pressure offloading are the appropriate next steps in therapy. Will sign off. Thank you. Admission and Anticipated Discharge Date Admission Date: May 31, 2025 Subjective No significant clinical change. Results & Data Vital Signs (Past 12 Hours) Vital Signs Temp Pulse Resp BP Pulse Ox O2 Del Method 06/03/25 07:24 36.4 C L 92 H 18 120/85 95 Room Air 06/03/25 03:11 36.4 C L 102 H 18 119/73 90 Room Air 06/02/25 23:16 36.6 C 106 H 18 105/75 95 Nasal Cannula PG Care Time/CCT Total # of Minutes Spent Total Time Spent with Patient: Total time spent is greater than 50% in coordination of care (as documented) at patient's floor/unit and/or counseling patient: Coding Level of Care Code 39333 SUB INP/OBS CARE 12/06MIN Diagnoses Peripheral arterial disease I73.9
[2025-06-03] MEDS: LANTUS PER UNIT CHARGE SC SCH (12:20)
--- NOTE | 2025-06-03 17:34 | Hospitalist Progress Note ---
Date of Service June 03, 2025 Assessment & Plan (1) Lower extremity ulceration: Plan Per previous hospitalist w/ addendums (1) Lower extremity ulceration (2) Hyperosmolar hyperglycemic state (HHS): (3) Hypertension: (4) Hyperlipidemia: (5) Type II diabetes mellitus, uncontrolled: (6) HFrEF (heart failure with reduced ejection fraction): In summary, 65 yo M with type II DM with HHS, HFrEF last EF less than 20%, diabetic ulcers, hypertension, hyperlipidemia admitted for elevated BSG in the 500s and elevated lactate suspicious for HHS. He was treated with an insulin drip overnight and BSG's normalized, lactate down trended but did not completely resolve. On evaluation he was found to have bilateral lower extremity calf wounds, and toe ulcers and concern for arterial insufficiency was raised. Arterial Dopplers show severe infrapopliteal stenosis with monophasic flow. Cap refill is sluggish around 4 seconds. He continues to have some discomfort mostly on the lateral/plantar aspect of his foot. No pain of the toes, he has neuropathy and diminished sensation Type II DM, HHS suspect HHS precipitated by steroid use, possible medication noncompliance after being started on prednisone for gout flare HHS resolved. pH, bicarb, BSG all returned to goal Transitioned from gtt. to basal bolus Type II DM, heart healthy diet Chronic lower extremity wounds, history of calciphylaxis With history of enterococcal bacteremia Lower extremity wounds with ?ischemic component. Ulcers are present on the calfs bilaterally, and dorsum of the 1st and 2nd right toes. These have a pressure distribution however he also endorses a history of chronic foot pain at rest which improves at home when he hangs his legs over the side of the bed consistent with ischemic pain and is difficult to appreciate pedal pulses CTlower extremity left with contrast: Diffuse edema. Layering fluid. No dr abernathy fluid collection. No tissue gas Arterial Dopplers 05/31/2025 with bilateral severe infrapopliteal stenosis. Monophasic flow in the feet bilaterally Vascular surgery (Dr. Ibarra) consulted. Reviewed imaging. No surgical intervention recommended at this time. Suspect more pressure in his region of his ulcers, noting that he did have a spider bite which was able to heal in the foot recently as well. Appreciate recommendations Last RUSSEL 04/2025: Right 1.14, left 1.27. No significant occlusive disease noted in the right lower extremity at that time, mild occlusive disease in the left. ? Right foot pain, tenderness, history of DFI with possible cellulitis on admission History of MSSA and enterococcal faecalis diabetic foot ulcers On admission did have an elevated lactic in the setting of suspected HHS and recent right lower extremity swelling reportedly empirically started on prednisone for possible gout Chronic nonhealing bilateral lower extremity ulcers He does not have a leukocytosis, is afebrile Was treated 05/30 at facility for possible gout flare. At that time was having persistent left heel pain. Uric acid level was elevated and had an extended NSAID course at that time. MRI was contraindicated during that workup due to 3 metal fragments in his ankle. Right foot is with erythema, no change from prior per patient. Continues to be generally tender, improving slightly when hung over the side of the bed. DDx includes cellulitis, gouty pain, and arterial insufficiency. CT is noted with diffuse edema without evidence of gas/drainable collection. Antibiotics have been continued for potential cellulitis. Concern for sluggish vascular flow and arterial insufficiency managed as noted ID consulted, pt on Zosyn -> change to oral Augmentin today. Appreciate recommendations History of calciphylaxis Follows with [facility] podiatry was pending outpatient follow-up as outpatient Continue wound care HFrEF No acute chest pain/chest pressure, no evidence of ACS on admission Cautious use of fluids. Clinically was volume down in the setting of HHS however is at high risk for decompensation from volume overload with excess fluids. Nearing euvolemia, IV fluids discontinued Admitted chest x-ray with possible mild vascular congestion, no overt volume overload noted. Continue metoprolol 25 mg daily, clonidine, spironolactone 12.5 mg daily,Lasix held with HHS and volume contraction on admission Restarting Lasix Follows with [facility] cardiology. Last encounter in March 2025 and have severely reduced LVEF 20-24%. Generally noncompliant with medications and is signed out of the hospital in ER multiple times in the past. - NSVT this yesterday, 4 beat pt asymptomatic, 6 and 7 beat run of V. tachycardia per water quality technician. cont. to monitor on tele. consult cardiology BPH Continue Flomax -Beckford out. Post void residual minimal Anxiety/depression Continue Seroquel/duloxetine PT, OT and CM consults Looking at rehab stay at [facility] A total of 55 minutes spent in the care and care coordination of this patient. Admission and Anticipated Discharge Date Admission Date: May 31, 2025 Subjective Chart and data reviewed. VS reviewed. Pt seen at bedside with wound nurse. Vascular surgery feels the wounds are pressure related. Wound are nurse questions calciphalaxis or less likely pyoderma granulosum due to extreme pain and presentation. Pt with several short bursts of V. tach through the day. Not sure if echo done during [facility] hospitalization. Could not find on EPIC. He denies CP or sob. Feels weak. Beckford cath out. Post void residual only 46 Review of Systems Review of Systems: Constitutional- no fever; no chills Eyes- no acute visual changes Pulmonary- no cough, no wheezing, no shortness of breath Cardiac- no chest pain, GI- no nausea, no vomiting, no diarrhea, no melena, no hematochezia - no dysuria, no hematuria Derm- multiple skin wounds on LEs Neuro- no headaches, no focal neurologic symptoms Physical Exam Physical Exam: General- adult elderly male seen at bedside. Chronic ill appearance Eyes- PERRL, EOMI, anicteric ENT- oropharynx clear Neck- supple, no JVD, no adenopathy, no thyromegaly; carotids +2/2, no bruits appreciated Lungs- clear to auscultation and percussion Heart- regular rhythm; no murmur, no gallop, no rub appreciated Abdomen- normal bowel sounds, soft, nontender, no masses or hepatosplenomegaly Extremities- Left calf large wounds/ eschar , right calf ulcers, no bleeding/oozing Neuro- alert, oriented x 3; PERRL, EOMI; no focal gross deficits Skin- warm & dry Results & Data Results & Data Vital Signs (Past 12 Hours) Vital Signs Temp Pulse Pulse Resp BP Pulse Ox O2 Del Method 06/03/25 15:25 89 06/03/25 15:11 36.6 C 85 17 102/68 94 Room Air 06/03/25 11:19 36.3 C L 102 H 16 120/83 94 Room Air 06/03/25 08:00 104 H 06/03/25 08:00 Room Air 06/03/25 07:24 36.4 C L 92 H 18 120/85 95 Room Air Diagnostic Findings Laboratory Results WBC 8.82 K/ul (4.8-10.8) 06/03/25 05:50 RBC 4.37 M/uL (4.70-6.10) L 06/03/25 05:50 Hgb 12.4 g/dl (14.0-18.0) L 06/03/25 05:50 Hct 39.0 % (42.0-52.0) L 06/03/25 05:50 MCV 89.2 fL (80.0-100.0) 06/03/25 05:50 MCH 28.4 pg (25.0-34.0) 06/03/25 05:50 MCHC 31.8 g/dL (32.0-36.0) L 06/03/25 05:50 RDW Std Deviation 60.1 fL (36.4-46.3) H 06/03/25 05:50 RDW Coeff of [place] 18.4 % (11.5-14.5) H 06/03/25 05:50 Plt Count 261 K/uL (130-400) 06/03/25 05:50 MPV 10.9 fL (9.4-12.4) 06/03/25 05:50 Immature Gran % (Auto) 0.4 % 06/01/25 05:30 Neut % (Auto) 72.8 % 06/01/25 05:30 Lymph % (Auto) 17.3 % 06/01/25 05:30 [place] % (Auto) 9.2 % 06/01/25 05:30 Eos % (Auto) 0.2 % 06/01/25 05:30 Baso % (Auto) 0.1 % 06/01/25 05:30 Neut # (Auto) 7.80 K/uL (1.40-6.50) H 06/01/25 05:30 Lymph # (Auto) 1.85 K/uL (1.20-3.40) 06/01/25 05:30 [place] # (Auto) 0.98 K/uL (0.11-0.59) H 06/01/25 05:30 Eos # (Auto) 0.02 K/uL (0.00-0.50) 06/01/25 05:30 Baso # (Auto) 0.01 K/uL (0.00-0.20) 06/01/25 05:30 Immature Gran # (Auto) 0.04 K/uL (0.01-0.20) 06/01/25 05:30 Absolute Nucleated RBC Cancelled 06/01/25 04:22 Nucleated RBC % (auto) Cancelled 06/01/25 04:22 Platelet Estimate Cancelled 06/01/25 04:22 ESR 30 mm/hr (0-20) H 05/31/25 10:45 Heparin Anti-Xa, Unfract < 0.10 IU/ml (0.3-0.7) L 06/01/25 20:57 VBG pH 7.34 (7.36-7.41) L 06/03/25 05:50 VBG pCO2 42 mmHg (38-50) 06/01/25 08:29 VBG pO2 36 mmHg 06/01/25 08:29 VBG HCO3 27 mmol/L 06/01/25 08:29 VBG O2 Saturation < 60.0 % 06/01/25 08:29 VBG Base Excess 1.7 mEq/L 06/01/25 08:29 Sodium 138 mmol/L (136-145) 06/03/25 05:50 Potassium 4.3 mmol/L (3.5-5.1) 06/03/25 05:50 Chloride 102 mmol/L (98-107) 06/03/25 05:50 Carbon Dioxide 28 mmol/L (21-32) 06/03/25 05:50 Anion Gap 8 (3-11) 06/03/25 05:50 BUN 32 mg/dl (6-23) H 06/03/25 05:50 Creatinine 1.16 mg/dl (0.6-1.4) 06/03/25 05:50 Est Cr Clr Drug Dosing 72.7 ml/min 06/03/25 05:50 eGFR 70.33 06/03/25 05:50 BUN/Creatinine Ratio 27.6 (10-20) H 06/03/25 05:50 Glucose 70 mg/dl (70-99(Fasting)) 06/03/25 05:50 POC Glucose 70 mg/dl (70-99) 06/03/25 16:12 Estimat Average Glucose 249 mg/dl 06/01/25 04:22 Hemoglobin A1c 10.3 % (4.5-5.6) H 06/01/25 04:22 Lactate 2.1 mmol/L (0.4-2.0) H* 06/01/25 10:21 Calcium 8.7 mg/dl (8.6-10.3) 06/03/25 05:50 Phosphorus 3.8 mg/dl (2.5-4.9) D 06/03/25 05:50 Magnesium 2.1 mg/dl (1.7-2.4) 06/03/25 05:50 Total Bilirubin 0.9 mg/dl (0.2-1.0) 06/01/25 08:29 AST 57 U/L (13-39) H 06/01/25 08:29 ALT 64 U/L (7-52) H 06/01/25 08:29 Alkaline Phosphatase 92 U/L (34-104) 06/01/25 08:29 Ammonia 35.0 umol/L (18-72) 05/31/25 11:20 Troponin I High Sens 47.8 pg/ml (0-20) H 05/31/25 12:36 C-Reactive Protein 4.50 mg/dl (0-0.5) H 05/31/25 10:45 Total Protein 6.4 gm/dl (6.0-8.3) 06/01/25 08:29 Albumin 3.1 gm/dl (3.4-5.0) L 06/01/25 08:29 Globulin 3.3 gm/dl (2.5-4.0) 06/01/25 08:29 Albumin/Globulin Ratio 0.9 (0.9-2) 06/01/25 08:29 Procalcitonin 0.37 ng/ml (0-0.5) 05/31/25 11:20 TSH 3.371 uIu/ml (0.300-4.500) 05/31/25 10:45 Urine Color Yellow 05/31/25 17:45 Urine Appearance Clear (Clear) 05/31/25 17:45 Urine pH 5.0 (4.5-7.5) 05/31/25 17:45 Ur Specific [place] > 1.045 (1.000-1.030) H 05/31/25 17:45 Urine Protein 2+ (Negative) H 05/31/25 17:45 Urine Glucose (UA) 3+ (Negative) H 05/31/25 17:45 Urine Ketones Trace (Negative) H 05/31/25 17:45 Urine Blood Negative (Negative) 05/31/25 17:45 Urine Nitrite Negative (Negative) 05/31/25 17:45 Urine Bilirubin Negative (Negative) 05/31/25 17:45 Urine Urobilinogen Negative (Negative) 05/31/25 17:45 Ur Leukocyte Esterase Negative (Negative) 05/31/25 17:45 Urine WBC (Auto) 0-5 /hpf (0-5) 05/31/25 17:45 Urine RBC (Auto) 0-2 /hpf (0-2) 05/31/25 17:45 U Hyaline Cast (Auto) >20 /lpf (0-2) H 05/31/25 17:45 U Epithel Cells (Auto) 6-10 /hpf (0-2) H 05/31/25 17:45 Urine Bacteria (Auto) None Seen (None Seen) 05/31/25 17:45 Hyaline Casts Present /lpf (None Presnt) A 05/31/25 17:45 Granular Casts Present /lpf (None Prsent) A 05/31/25 17:45 Urine Comment 05/31/25 17:45 Nasal Screen MRSA (PCR) Negative (Negative) 05/31/25 17:45 Impressions Chest X-Ray 05/31/25 10:50 Clinical History: Weakness Technique: A frontal view of the chest was obtained Findings: There is left upper lobe interstitial prominence and there is also mild left lower lobe linear and patchy opacity, concerning for pneumonia. There is also mild diffuse interstitial prominence. The heart is mildly enlarged. No definite pleural effusion or pneumothorax is seen. No fracture is noted. No foreign body is seen Impression: 1. Possible combination of pulmonary vascular congestion and left lung pneumonia 2. Mild cardiomegaly ACT 112: Positive. There are findings on this exam that require communication between the performing entity and the patient following Patient Test Result Information Act ([place] ACT 112) guidelines. Electronically signed by Anshul Howard 05-31-2025 12:[address] 05/31/25 10:55 Clinical History: Altered mental status Technique: Axial computed tomography images were obtained of the brain without intravenous contrast. Findings: There is diffuse cerebral atrophy, within expected limits for the patient's age. Areas of decreased attenuation are seen within the periventricular white matter, likely representing chronic small vessel ischemic disease. There is no definite sign of acute or old infarction. No intracranial hemorrhage is evident. No definite mass lesion is seen on this noncontrast examination. There is no midline shift or other form of herniation. No hydrocephalus is seen. No fracture is identified. The orbits and the visualized paranasal sinuses appear unremarkable. The mastoid air cells appear clear. Impression: 1. Cerebral atrophy and chronic small vessel ischemic disease 2. Otherwise unremarkable noncontrast CT of the brain Electronically signed by Anshul Howard 05-31-2025 13:09 PM Tibia/Fibula X-Ray 05/31/25 10:56 Clinical History: Swelling 4 views of the left lower leg are submitted for review. Findings: No fracture or dislocation is seen. There is patellofemoral compartment predominant degenerative joint disease of the left knee. No other osseous abnormality is identified. There are no radiopaque foreign bodies. Impression: 1. No definite fracture 2. Left knee osteoarthritis Electronically signed by Anshul Howard 05-31-2025 12:39 PM Duplex Scan Lower Extremity Artery 05/31/25 14:19 BIALTERAL LOWER EXTREMITY ARTERIAL DUPLEX ULTRASOUND INDICATION: Pain TECHNIQUE: Ultrasound of the bilateral lower extremity arteries was performed. A duplex Doppler study was performed, consisting of integrated 2-dimensional (2D) real-time imaging: Color flow Doppler and Doppler spectral analysis. COMPARISON: None FINDINGS: RIGHT: Blood flow velocities are within normal limits. Advanced atherosclerotic disease involving the infrapopliteal arteries resulting in severe luminal stenoses Blood flow velocities and waveforms are as follows: PAINTER MIRROR: 51.8 cm/s, triphasic Profunda femoris: 49.6 cm/s, triphasic Proximal SFA: 45.6 cm/s, triphasic Mid SFA: 53.1 cm/s, triphasic Distal SFA: 70.5 cm/s, triphasic Popliteal: 36.2 cm/s, triphasic KRYSTAL: 13.8 cm/s, monophasic Peroneal artery: 20.8 cm/s, monophasic COMMERCIAL ANNOUNCER: 21.2 cm/s, monophasic DPA: 6.2 cm/s, monophasic LEFT: Blood flow velocities are within normal limits. Advanced atherosclerotic disease involving the infrapopliteal arteries resulting in severe luminal stenoses. Additional moderate atherosclerotic involvement of the mid to distal superficial femoral artery. Blood flow velocities and waveforms are as follows: PAINTER MIRROR: 51.8 cm/s, triphasic Profunda femoris: 42.6 cm/s, triphasic Proximal SFA: 53.5 cm/s, triphasic Mid SFA: 55.1 cm/s, triphasic Distal SFA: 43.0 cm/s, triphasic Popliteal: 44.7 cm/s, triphasic KRYSTAL: 61.3 cm/s, monophasic Peroneal artery: 22.3 cm/s, monophasic COMMERCIAL ANNOUNCER: 16.1 cm/s, monophasic DPA: 17.4 cm/s, monophasic IMPRESSION: Bilaterally, there is advanced atherosclerotic disease involving the infrapopliteal arteries resulting in severe luminal stenoses. There is additional moderate atherosclerotic involvement of the LEFT mid to distal superficial femoral artery. Electronically signed by Frederic Stratton 05-31-2025 8:[address] 05/31/25 14:29 CT RIGHT FEMUR WITH CONTRAST: HISTORY: Pain. Infection. Concern for abscess TECHNIQUE: CT of the right femur was obtained with intravenous contrast. Coronal and sagittal reformats were created. IV CONTRAST: 100 mL of OMNIPAQUE 300 COMPARISON: FINDINGS: No acute fracture is identified. Extensive subcutaneous edema. There is a small fluid layering along the fascia just lateral to the quadriceps muscle. No organized, drainable fluid collection is identified. No soft tissues gas is identified. IMPRESSION: Diffuse subcutaneous edema. Small fluid layering along the fascial planes of the quadriceps muscle. No organized/drainable fluid collection is identified to suggest an abscess. No soft tissues gas is identified. Electronically signed by Frederic Stratton 05-31-2025 5:[address] 05/31/25 14:29 CT LEFT TIBIA-FIBULA WITH CONTRAST: HISTORY: Pain. Infection. Concern for abscess TECHNIQUE: CT of the left tibia-fibula was obtained with intravenous contrast. Coronal and sagittal reformats were created. IV CONTRAST: 100 mL of OMNIPAQUE 300 COMPARISON: FINDINGS: No acute fracture is identified. Advanced tricompartment osteoarthritis of the left knee. Extensive subcutaneous edema. There is a small fluid layering along the fascia planes posteriorly No organized, drainable fluid collection is identified No soft tissues gas is identified. Scattered soft tissue wounds. IMPRESSION: Diffuse subcutaneous edema. Small fluid layering along the fascial planes posteriorly. No organized/drainable fluid collection is identified to suggest an abscess. No soft tissues gas is identified. Electronically signed by Frederic Stratton 05-31-2025 5:16 PM Ankle Brachial Index 06/02/25 07:43 US ankle/brachial index ltd HISTORY: 65 years-old Male PAD peripheral arterial disease COMPARISON: 05/31/2025 TECHNIQUE: Segmental pressures with ABIs were obtained FINDINGS: [id number]; dorsalis pedis-134 (1.23); posterior tibial-100 (0.92); toe brachial index-89 (0.82); RUSSEL-1.23 Left-dorsalis pedis-95 (0.87); posterior tibial-143 ( 1.31); toe brachial index index-84 (0.77); RUSSEL-1.31 IMPRESSION: 1. Right-sided RUSSEL of 1.23 2. Left-sided RUSSEL of 1.31 ACT 112: Negative or not required by law. The above report was generated using voice recognition software. It may contain grammatical, syntax or spelling errors. Electronically signed by: Thaddeus Thompson M.D. 06/02/2025 10:27 AM
--- NOTE | 2025-06-03 17:36 | XCELERA ---
[id number] \\[id number]
[2025-06-03] MEDS: AMOXICILLIN/CLAVULANATE 875 MG TAB PO SCH (18:23)
[2025-06-04 06:27] LABS: Hematocrit (blood only) 38.4 % (42.0-52.0); Hemoglobin 12.6 g/dl (14.0-18.0); Mean Corpuscular Hemoglobin 28.3 pg (25.0-34.0); Mean Corpuscular Volume 86.3 fL (80.0-100.0); Platelet Count 268 K/uL (130-400); RDW Standard Deviation 56.9 fL (36.4-46.3); Red Blood Count 4.45 M/uL (4.70-6.10); White Blood Count 9.16 K/ul (4.8-10.8)
[2025-06-04 06:48] LABS: Anion Gap 9.0 (3-11); Blood Urea Nitrogen 31.0 mg/dl (6-23); Calcium 8.5 mg/dl (8.6-10.3); Carbon Dioxide 26.0 mmol/L (21-32); Chloride 102.0 mmol/L (98-107); Creatinine Clr Calc Pharmacy 94.8 ml/min; Glucose 77.0 mg/dl (70-99(Fasting)); Magnesium 1.9 mg/dl (1.7-2.4); Potassium 4.1 mmol/L (3.5-5.1); Sodium 137.0 mmol/L (136-145)
[2025-06-04] MEDS: LANTUS PER UNIT CHARGE SC SCH (09:20)
[2025-06-04] MEDS: REMOVE CLONIDINE PATCH SCH ×2 (09:21→15:01)
--- NOTE | 2025-06-04 09:22 | Cardiology Consultation ---
Date of Consultation June 04, 2025 Assessment & Plan (1) HFrEF (heart failure with reduced ejection fraction): (2) Severe left ventricular systolic dysfunction: (3) Aortic stenosis: (4) Mitral regurgitation: (5) Ventricular tachycardia: Supervising Physician Co-Signing Physician Notes Attending Staff: 65 yo man presenting with hyperglycemia * LE ulceration * DM Cardiology consulted for NSVT (up to 6 beats) * ECHO on 06-03-2025 * LVEF <20% * Moderately Dilated LV * MR - mild to moderate * - mild to moderate * RV dilated - severely reduced function * TR - mild * Normal IVC BP 103/72; HR 97 * Wean Clonidine * Start Aldactone 25 mg po per day * Start Jardiance 10 mg po per day * Continue Lasix 40 mg po per day * Continue Toprol XL 25 mg po per day * Consider Entresto 12/13 mg po BID on 06/05/2025 as Clonidine comes off * K+ goal 4.5-5 * Mag goal >2 * Check TSH * Check PO4 * Quantify Urine Protein/Creatinine - may have nephrosis from DM (UA with 2+) * ICD consideration as an outpt * Elective outpt Coronary Angiogram + Right Heart Cath * 60 min spent addressing challenges, educating and advancing daily plan of care Nick Norman History of Present Illness Reason for Consultation: Recurrent short runs of V. Tachy Requesting Physician: [facility], Dr. Dale Lopez, Attending Physician: [facility], Dr. Dale Lopez, DO Allergies Allergy/AdvReac Type Severity Reaction Status Date / Time cephalexin [From Keflex] Allergy Verified 09/17/23 08:13 duloxetine AdvReac Severe Verified 09/17/23 08:13 dulaglutide [From Trulicity] AdvReac Verified 09/17/23 08:13 empagliflozin AdvReac Verified 09/17/23 08:13 [From Jardiance] losartan AdvReac Verified 09/17/23 08:13 lisinopril AdvReac Uncoded 09/17/23 08:13 Home Medications Medication Instructions Recorded Confirmed Type blood-glucose meter #1 ea 05/12/21 09/17/23 Rx lancets 30 gauge #100 ea 05/12/21 09/17/23 Rx blood sugar diagnostic #400 ea 01/08/23 09/17/23 Rx Insta-Glucose 1 applic buccal DAILY PRN 05/31/25 05/31/25 History Hypoglycemia Milk of Magnesia 30 ml PO DAILY PRN Constipation 05/31/25 05/31/25 History acetaminophen 325 mg tablet 650 mg PO Q6H PRN Mild Pain (Scale 05/31/25 05/31/25 History Score 1-4) acetaminophen 325 mg tablet 650 mg PO Q6H PRN temp>101 05/31/25 05/31/25 History allopurinol 100 mg tablet 100 mg PO DAILY 05/31/25 05/31/25 History aspirin 81 mg chewable tablet 81 mg PO DAILY 05/31/25 05/31/25 History atorvastatin 80 mg tablet 80 mg PO DAILY 05/31/25 05/31/25 History bisacodyl 10 mg rectal suppository 10 mg ID DAILY PRN Constipation 05/31/25 05/31/25 History (Dulcolax (bisacodyl)) capsaicin 0.1 % topical cream 1 applic topical .DAILY FOR 10 DAYS 05/31/25 05/31/25 History carisoprodol 350 mg tablet (Soma) 350 mg PO Q6H PRN muscle pain 05/31/25 05/31/25 History clonidine 0.2 mg/24 hr weekly 0.2 mg transdermal .Q Sunday05/31/25 05/31/25 History transdermal patch colchicine 0.6 mg tablet 0.6 mg PO Q12H PRN gout flare 05/31/25 05/31/25 History duloxetine 20 mg capsule,delayed 20 mg PO DAILY 05/31/25 05/31/25 History release finasteride 5 mg tablet 5 mg PO DAILY 05/31/25 05/31/25 History furosemide 40 mg tablet 40 mg PO DAILY 05/31/25 05/31/25 History gabapentin 800 mg tablet 800 mg PO BID 05/31/25 05/31/25 History (Neurontin) glucagon 1 mg injection kit 1 mg IM DAILY PRN Hypoglycemia 05/31/25 05/31/25 History insulin glargine 100 unit/mL (3 10 unit subcut DAILY 05/31/25 05/31/25 History mL) subcutaneous pen (Lantus Solostar U-100 Insulin) magnesium oxide 500 mg capsule 400 mg PO DAILY 05/31/25 05/31/25 History metformin 1,000 mg tablet 1,000 mg PO Q12 05/31/25 05/31/25 History metoprolol succinate 25 mg 25 mg PO DAILY 05/31/25 05/31/25 History tablet,extended release 24 hr prednisone 10 mg tablet 10 mg PO .DAILY FOR 4 DAYS 05/31/25 05/31/25 History quetiapine 25 mg tablet (Seroquel) 25 mg PO DAILY 05/31/25 05/31/25 History quetiapine 25 mg tablet (Seroquel) 50 mg PO HS 05/31/25 05/31/25 History repaglinide 2 mg tablet 1 mg PO .DAILY BEFORE MEALS 05/31/25 05/31/25 History sennosides 8.6 mg-docusate sodium 1 tab-cap PO BID 05/31/25 05/31/25 History 50 mg tablet (Senna-S) sodium phosphates 19 gram-7 118 ml ID DAILY PRN Constipation 05/31/25 05/31/25 History gram/118 mL enema (Enema) spironolactone 25 mg tablet 12.5 mg PO DAILY 05/31/25 05/31/25 History tamsulosin 0.4 mg capsule 0.4 mg PO DAILY 05/31/25 05/31/25 History tramadol 50 mg tablet 50 mg PO Q4H PRN Pain 05/31/25 05/31/25 History Patient History Surgical History Previous back surgery Family History Mother Uterine cancer Father Diabetes Social History Smoking Status: Unknown if ever smoked Second Hand Exposure: No; Do You Dip or Chew Tobacco: No; Preferred Language: Serbian Foundation Relations Manager Required: No marital status: Single Current Living Situation: Half-Way Current Living Situation Comment: Kevin current occupational status: unemployed Feels Safe at Home: Yes Diet: diabetic Do you think of yourself as: straight/heterosexual Gender Identity: Male Review of Systems Review of Systems: Complete Review of Systems is as stated above, negative, or noncontributory Physical Exam Physical Exam: Male pattern baldness JVP at base of neck S1S2 No major murmur appreciated CTA B at apices and mid-lung davila Mild crackles at bases Dense LE edema in thighs and lower legs Mottled toes Results & Data Vital Signs (Past 12 Hours) Vital Signs Temp Pulse Pulse Resp BP Pulse Ox O2 Del Method 06/04/25 03:17 36.5 C 94 H 16 110/79 90 Room Air 06/03/25 23:05 36.3 C L 99 H 16 117/83 95 Room Air 06/03/25 22:36 100 H 06/03/25 22:18 Room Air Laboratory Results CBC 06/04/25 Range/Units 05:50 WBC 9.16 (4.8-10.8) K/ul RBC 4.45 L (4.70-6.10) M/uL Hgb 12.6 L (14.0-18.0) g/dl Hct 38.4 L (42.0-52.0) % Plt Count 268 (130-400) K/uL Comprehensive Metabolic Panel 06/04/25 Range/Units 05:50 Sodium 137 (136-145) mmol/L Potassium 4.1 (3.5-5.1) mmol/L Chloride 102 (98-107) mmol/L Carbon Dioxide 26 (21-32) mmol/L BUN 31 H (6-23) mg/dl Creatinine 0.89 (0.6-1.4) mg/dl Glucose 77 (70-99(Fasting)) mg/dl Calcium 8.5 L (8.6-10.3) mg/dl Intake and Output 06/03/25 06/04/25 06/04/25 22:59 06:59 14:59 Intake Total 478.667 / 1058.667 Output Total 450 / 2300 350 / 2300 Balance 28.667 / -1241.333 -350 / -1241.333 Intake: IV 358.667 / 458.667 Sodium Chloride 0.9% 500 ml @ 358.667 / 358.667 80 mls/hr IV .Q6H15M ONE Rx#: [id number] Oral 120 / 600 Output: Urine 450 / 2300 350 / 2300 Other: # Unmeasured Voids 1 Weight 89.7 kg Weight Measurement Method Built in [facility] Diagnostic Findings May 31, 2025 EKG: Sinus tachycardia at 115 bpm. LAE. Incomplete RBBB. LAFB. Nonspecific T wave abnormality June 03, 2025 TTE: Severe biventricular systolic failure. LVEF 10-15%. Severe global hypokinesis. Moderately dilated LV. Mild to moderate MR. Mild to moderate . Study is incomplete in the analysis of the aortic valve. Telemetry: Sinus with occasional PVC's, 3 to 6 beat runs of ventricular tachycardia, heart rates predominately in the 90's to low 100's Medications Administered Current Inpatient Medications Allopurinol (Allopurinol 100 Mg Tab) 100 mg PO DAILY [facility] Stop: 07/01/25 08:59 Last Admin: 06/04/25 09:20 Dose: 100 mg Amoxicillin/Clavulanate Potassium (Amoxicillin/Clavulanate 875 Mg Tab) 1 tab PO BIDM [facility]; Protocol Stop: 06/06/25 23:00 Last Admin: 06/04/25 09:19 Dose: 1 tab Aspirin (Aspirin 81 Mg Chew) 81 mg PO DAILY DAO Stop: 07/01/25 08:59 Last Admin: 06/04/25 09:20 Dose: 81 mg Atorvastatin Calcium (Atorvastatin 40 Mg Tab) 80 mg PO DAILY DAO Stop: 07/01/25 08:59 Last Admin: 06/04/25 09:20 Dose: 80 mg Bisacodyl (Bisacodyl 10 Mg Supp) 10 mg ID DAILY PRN PRN Reason: Constipation Stop: 06/30/25 16:25 Clonidine HCl (Clonidine Hcl 0.2 Mg/24 Hr Transderm Sys) 1 patch TD Th@0900 DAO Stop: 07/04/25 08:59 Last Admin: 06/04/25 09:20 Dose: 1 patch Dextrose (Dextrose 50% 50 Ml Syringe) 25 - 50 ml IV UD PRN; Protocol PRN Reason: Hypoglycemia Protocol Stop: 06/30/25 11:44 Last Admin: 06/01/25 02:29 Dose: 25 ml Duloxetine HCl (Duloxetine Hcl 20 Mg Cap) 20 mg PO DAILY DAO Stop: 07/01/25 08:59 Last Admin: 06/04/25 09:19 Dose: 20 mg Finasteride (Finasteride 5 Mg Tab) 5 mg PO DAILY DAO Stop: 07/01/25 08:59 Last Admin: 06/04/25 09:20 Dose: 5 mg Furosemide (Furosemide 40 Mg Tab) 40 mg PO DAILY DAO Stop: 07/03/25 08:59 Last Admin: 06/04/25 09:20 Dose: 40 mg Gabapentin (Gabapentin 800 Mg Tab) 800 mg PO BID DAO Stop: 06/30/25 20:59 Last Admin: 06/04/25 09:20 Dose: 800 mg Glucagon (Glucagon For Inj 1 Mg Vial) 1 mg SQ UD PRN; Protocol PRN Reason: Hypoglycemia Protocol Stop: 06/30/25 11:44 Glucose (Glucose 40% Gel 15 Gm Tube) 15 - 30 gm PO UD PRN; Protocol PRN Reason: Hypoglycemia Protocol Stop: 06/30/25 11:44 Glucose (Glucose 10 Tab/Tube) 4 - 8 tab PO UD PRN; Protocol PRN Reason: Hypoglycemia Protocol Stop: 06/30/25 11:44 Heparin Sodium (Porcine) (Heparin Sod 5,000 Unit/0.5 Ml Vial) 5,000 units SQ Q12 DAO Stop: 06/30/25 20:59 Last Admin: 06/01/25 08:17 Dose: 5,000 units Insulin Aspart (Insulin Aspart Per Unit Charge) 0 units SC ACHS DAO Stop: 07/02/25 07:29 Last Admin: 06/04/25 11:54 Dose: Not Given Insulin Glargine (Lantus Per Unit Charge) 8 units SC DAILY DAO Stop: 07/04/25 08:59 Last Admin: 06/04/25 09:20 Dose: 8 units Metoprolol Succinate (Metoprolol Succ 25mg Ext Rel Tab) 25 mg PO DAILY DAO Stop: 07/01/25 08:59 Last Admin: 06/04/25 09:19 Dose: 25 mg Miscellaneous (Carbohydrates For Hypoglycemia ) 15 - 30 gm PO UD PRN PRN Reason: Hypoglycemia Protocol Stop: 06/30/25 11:44 Miscellaneous (Remove Clonidine Patch) 1 each N/A Q7D@0859 [facility] Stop: 07/04/25 08:58 Last Admin: 06/04/25 09:21 Dose: 1 each Miscellaneous (Check Clonidine Patch Placement) 1 each N/A QS [facility] Stop: 07/01/25 00:00 Last Admin: 06/04/25 09:21 Dose: 1 each Miscellaneous Information (Pharmacy Glycemic Mgmt Consult) 1 each N/A UD PRN PRN Reason: Consult Stop: 06/30/25 16:25 Quetiapine Fumarate (Quetiapine Fumarate 25 Mg Tablet) 50 mg PO HS DAO Stop: 06/30/25 20:59 Last Admin: 06/03/25 21:36 Dose: 50 mg Quetiapine Fumarate (Quetiapine Fumarate 25 Mg Tablet) 25 mg PO DAILY DAO Stop: 07/01/25 08:59 Last Admin: 06/04/25 09:19 Dose: 25 mg Senna/Docusate Sodium (Docusate Sodium/Senna 50/8.6mg Tab) 1 tab PO BID DAO Stop: 06/30/25 20:59 Last Admin: 06/04/25 09:20 Dose: 1 tab Tamsulosin HCl (Tamsulosin Hcl 0.4 Mg Cap) 0.4 mg PO DAILY DAO Stop: 07/01/25 08:59 Last Admin: 06/04/25 09:19 Dose: 0.4 mg Tramadol HCl (Tramadol Hcl 50 Mg Tablet) 50 mg PO Q4H PRN PRN Reason: Pain Stop: 06/30/25 16:25 Last Admin: 06/04/25 09:19 Dose: 50 mg PG Care Time/CCT Total # of Minutes Spent Total Time Spent with Patient: Total time spent is greater than 50% in coordination of care (as documented) at patient's floor/unit and/or counseling patient: Coding Level of Care Code 11979 IN/OBS CONSULT LVL 5,80M Diagnoses HFrEF (heart failure with reduced ejection fraction) I50.20 Severe left ventricular systolic dysfunction I51.89 Aortic stenosis I35.0 Mitral regurgitation I34.0 Ventricular tachycardia I47.20
--- NOTE | 2025-06-04 12:48 | Hospitalist Progress Note ---
Date of Service June 04, 2025 Assessment & Plan (1) Lower extremity ulceration: Plan In summary, 65 yo M with type II DM with HHS, HFrEF last EF less than 20%, diabetic ulcers, hypertension, hyperlipidemia admitted for elevated BSG in the 500s and elevated lactate suspicious for HHS. He was treated with an insulin drip overnight and BSG's normalized, lactate down trended but did not completely resolve. On evaluation he was found to have bilateral lower extremity calf wounds, and toe ulcers and concern for arterial insufficiency was raised. Arterial Dopplers show severe infrapopliteal stenosis with monophasic flow. Cap refill is sluggish around 4 seconds. He continues to have some discomfort mostly on the lateral/plantar aspect of his foot. No pain of the toes, he has neuropathy and diminished sensation Type II DM, HHS suspect HHS precipitated by steroid use, possible medication noncompliance after being started on prednisone for gout flare HHS resolved. pH, bicarb, BSG all returned to goal Transitioned from gtt. to basal bolus Type II DM, heart healthy diet Chronic lower extremity wounds, history of calciphylaxis With history of enterococcal bacteremia Lower extremity wounds with ?ischemic component. Ulcers are present on the calfs bilaterally, and dorsum of the 1st and 2nd right toes. These have a pressure distribution however he also endorses a history of chronic foot pain at rest which improves at home when he hangs his legs over the side of the bed consistent with ischemic pain and is difficult to appreciate pedal pulses CTlower extremity left with contrast: Diffuse edema. Layering fluid. No drainable fluid collection. No tissue gas Arterial Dopplers 05/31/2025 with bilateral severe infrapopliteal stenosis. Monophasic flow in the feet bilaterally Vascular surgery (Dr. Ibarra) consulted. Reviewed imaging. No surgical intervention recommended at this time. Suspect more pressure in his region of his ulcers, noting that he did have a spider bite which was able to heal in the foot recently as well. Appreciate recommendations Last RUSSEL 04/2025: Right 1.14, left 1.27. No significant occlusive disease noted in the right lower extremity at that time, mild occlusive disease in the left. ? Right foot pain, tenderness, history of DFI with possible cellulitis on admission History of MSSA and enterococcal faecalis diabetic foot ulcers On admission did have an elevated lactic in the setting of suspected HHS and recent right lower extremity swelling reportedly empirically started on prednisone for possible gout Chronic nonhealing bilateral lower extremity ulcers He does not have a leukocytosis, is afebrile Was treated 05/30 at facility for possible gout flare. At that time was having persistent left heel pain. Uric acid level was elevated and had an extended NSAID course at that time. MRI was contraindicated during that workup due to 3 metal fragments in his ankle. Right foot is with erythema, no change from prior per patient. Continues to be generally tender, improving slightly when hung over the side of the bed. DDx includes cellulitis, gouty pain, and arterial insufficiency. CT is noted with diffuse edema without evidence of gas/drainable collection. Antibiotics have been continued for potential cellulitis. Concern for sluggish vascular flow and arterial insufficiency managed as noted ID consulted, pt on Zosyn -> changed to oral Augmentin yesterday. Appreciate recommendations History of calciphylaxis Follows with [facility] pod[facility]ry was pending outpatient follow-up as outpatient Continue wound care HFrEF No acute chest pain/chest pressure, no evidence of ACS on admission Cautious use of fluids. Clinically was volume down in the setting of HHS however is at high risk for decompensation from volume overload with excess fluids. Nearing euvolemia, IV fluids discontinued Admitted chest x-ray with possible mild vascular congestion, no overt volume overload noted. Continue metoprolol 25 mg daily, wean clonidine, increase spironolactone to 25 mg daily, continue Lasix, start Jardiance and start Entresto when off clonidine per Cardiology recs Follows with [facility] cardiology. Last encounter in March 2025 and have severely reduced LVEF 20-24%. Generally noncompliant with medications and is signed out of the hospital in ER multiple times in the past. - NSVT this yesterday, 4 beat pt asymptomatic, 6 and 7 beat run of V. tachycardia per traffic monitor specialist. cont. to monitor on tele. Consider for ICD outpt BPH Continue Flomax -Beckford out. Post void residual minimal Anxiety/depression Continue Seroquel/duloxetine PT, OT and CM consults Looking at rehab stay at [facility] and others Trend labs A total of 50 minutes spent in the care and care coordination of this patient. Admission and Anticipated Discharge Date Admission Date: May 31, 2025 Subjective Chart and data reviewed. VS reviewed. Vascular surgery feels the wounds are pressure related. Wound are nurse questions calciphylaxis or less likely pyoderma granulosum due to extreme pain and presentation. Pt with several short bursts of SVT, V. tach yesterday. He denies CP or sob. Feels weak. Beckford cath out. Appreciate cardiology consulted. Recommendations noted. Review of Systems Review of Systems: Constitutional- no fever; no chills Eyes- no acute visual changes Pulmonary- no cough, no wheezing, no shortness of breath Cardiac- no chest pain, GI- no nausea, no vomiting, no diarrhea, no melena, no hematochezia - no dysuria, no hematuria Derm- multiple skin wounds on LEs Neuro- no headaches, no focal neurologic symptoms Physical Exam Physical Exam: General- adult elderly male seen at bedside. Chronic ill appearance Eyes- PERRL, EOMI, anicteric Neck- supple, no JVD, no adenopathy, Lungs- clear to auscultation and percussion Heart- regular rhythm; Abdomen- normal bowel sounds, soft, nontender, no masses or hepatosplenomegaly Extremities- Left calf large wounds/ eschar , right calf ulcers, no bleeding/oozing Neuro- alert, oriented x 3; PERRL, EOMI; no focal gross deficits Skin- warm & dry Results & Data Results & Data Vital Signs (Past 12 Hours) Vital Signs Temp Pulse Resp BP Pulse Ox O2 Del Method 06/04/25 11:39 36.4 C L 97 H 19 103/72 96 Room Air 06/04/25 03:17 36.5 C 94 H 16 110/79 90 Room Air
--- NOTE | 2025-06-04 14:01 | Pharmacy Report ---
Pharmacy Glycemic Short Note 2 - Date of Service June 04, 2025 - Glycemic Short BSG Results (Last 24 hours): 06/03/25 06/03/25 06/04/25 16:12 20:03 00:35 Glucose POC Glucose 70 95 84 06/04/25 06/04/25 06/04/25 05:50 07:36 07:39 Glucose 77 POC Glucose 66 L* 72 06/04/25 11:34 Glucose POC Glucose 76 OUTPATIENT ANTIDIABETIC REGIMEN: * Lantus 10 units SQ daily * metformin 1000mg PO BID * HbA1c 10.3% (06/01/25) ASSESSMENT: 06/04 * Insulin needs continue to trend downward. Kelby received 18 units of SC insulin yesterday (12 units Lantus, 6 units Novolog). * Despite decrease in basal insulin on 06/02 and 06/03, fasting BSG remains below goal at 66 mg/dL. Asymptomatic per RN. Decreased another 33% today. Will hold further Lantus pending improvement in fasting. * Will also loosen carb coverage for post prandial BSGs below goal range. 06/03: * Kelby received 22 units of insulin yesterday (15 were basal) * Fasting BSG this AM below goal range, first reading slightly hypoglycemic, will decrease basal insulin again and wait until lunch or administration. * No changes to NovoLog at this time, he was switched to IV Unasyn. 06/02: * Kelby received 29 units of insulin yesterday (20 were basal), plus insulin from the drip. * Fasting BSG this AM below goal range, decrease basal insulin by 20% and aim for more balanced basal bolus regimen. * Carbohydrate ratio tightened as BSGs trended up throughout the day, he is on IV Zosyn at this time. 06/01 * Kelby is a 65 year old male presenting with hyperglycemia and found to be in HHS. He has a history of insulin dependent type 2 diabetes mellitus. Pharmacy has been consulted to assist with glycemic management while inpatient. * Decision was made to begin an insulin drip yesterday afternoon upon presentation (BSG 564, AG 18, CO2 22, VBG pH 7.36). BSGs trending down overnight and labs normalized by AM. Mentation was not great per reports yesterday, but has improved this AM. HHS likely precipitated by steroid use (was on prednisone taper for gout flare) and possibly medication noncompliance evidenced by elevated HbA1c. * Drip transition this AM per Dr. Devi, NovoLog adjusted to a weight based stress of 1.5. Lantus adjusted to a scale up to a weight based stress of 2 based on BSG. * Kelby is starting on a heparin drip at this time, no ongoing steroids ordered, and no other glycemic stressors noted at this time. PLAN FOR INPATIENT GLYCEMIC CONTROL: * Hold outpatient oral diabetes medications * Basal insulin * Lantus 8 SC daily * Order on hold for 06/05 * Bolus insulin * NovoLog per scale ACHS or Q6hrs while NPO * Goal Range: Low 110 mg/dL - High 140 mg/dL * Correction Factor: 30 mg/dL/unit * Nutritional / Prandial insulin per carb ratio of 1 unit per 15 grams CHO consumed
[2025-06-04] MEDS: CHECK CLONIDINE PATCH PLACEMENT SCH (15:02)
[2025-06-04] MEDS: ONDANSETRON INJ 2 MG/ML 2 ML VIAL IV STA (21:01)
[2025-06-05 07:14] LABS: Anion Gap 4.0 (3-11); Blood Urea Nitrogen 27.0 mg/dl (6-23); Calcium 8.3 mg/dl (8.6-10.3); Carbon Dioxide 30.0 mmol/L (21-32); Chloride 102.0 mmol/L (98-107); Creatinine Clr Calc Pharmacy 81.1 ml/min; Glucose 109.0 mg/dl (70-99(Fasting)); Potassium 4.0 mmol/L (3.5-5.1); Sodium 136.0 mmol/L (136-145)
--- NOTE | 2025-06-05 07:58 | Cardiology Progress Note ---
Date of Service June 05, 2025 Assessment & Plan (1) Cardiomyopathy: Plan 65 yo man presenting with hyperglycemia * LE ulceration * DM Cardiology consulted for NSVT (up to 6 beats) * ECHO on 06-03-2025 * LVEF <20% * Moderately Dilated LV * MR - mild to moderate * - mild to moderate * RV dilated - severely reduced function * TR - mild * Normal IVC BP 103/72; HR 97 * STOP Clonidine * Continue Aldactone 25 mg po per day * Start Jardiance 10 mg po per day * Continue Lasix 40 mg po per day - normal RA pressure by ECHO this hospitalization * Continue Toprol XL 25 mg po per day * Consider Entresto 12/13 mg po BID on 06/06/2025 as Clonidine comes off * K+ goal 4.5-5 * KDUR 40 meq po x1 * Mag goal >2 * 4 gm of Magnesium Sulfate IV x 1 * TSH - 3.3 * Check PO4 * Quantify Urine Protein/Creatinine - may have nephrosis from DM (UA with 2+) * ICD consideration as an outpt * Elective outpt Coronary Angiogram + Right Heart Cath * [facility] Cardiology follow up - arranging * 50 min spent addressing challenges, educating and advancing daily plan of care * Please call back with any additional questions Nick Norman Admission and Anticipated Discharge Date Admission Date: May 31, 2025 Subjective Events Overnight: * None * + 1 short run of NSVT Subjective: * No complaints Review of Systems Review of Systems: All systems reviewed & are unremarkable except as noted in HPI & below Physical Exam Physical Exam: Male pattern baldness JVP at base of neck S1S2 No major murmur appreciated CTA B at apices and mid-lung davila Mild crackles at bases Dense LE edema in thighs and lower legs Mottled toes Results & Data Vital Signs (Past 12 Hours) Vital Signs Temp Pulse Pulse Resp BP Pulse Ox O2 Del Method 06/05/25 07:19 36.3 C L 78 18 84/62 L 94 Room Air 06/05/25 03:16 36.3 C L 84 18 100/69 93 Room Air 06/04/25 23:49 92 H 06/04/25 22:55 36.3 C L 86 16 116/87 92 Room Air Laboratory Results Comprehensive Metabolic Panel 06/05/25 Range/Units 06:32 Sodium 136 (136-145) mmol/L Potassium 4.0 (3.5-5.1) mmol/L Chloride 102 (98-107) mmol/L Carbon Dioxide 30 (21-32) mmol/L BUN 27 H (6-23) mg/dl Creatinine 1.04 (0.6-1.4) mg/dl Glucose 109 H (70-99(Fasting)) mg/dl Calcium 8.3 L (8.6-10.3) mg/dl Intake and Output 06/04/25 06/05/25 06/05/25 22:59 06:59 14:59 Intake Total 120 / 800 Output Total 350 / 650 Balance -350 / 150 120 / 150 Intake: Oral 120 / 800 Output: Urine 350 / 650 Other: Weight 89.5 kg Weight Measurement Method Built in [facility] Medications Administered Current Inpatient Medications Allopurinol (Allopurinol 100 Mg Tab) 100 mg PO DAILY [facility] Stop: 07/01/25 08:59 Last Admin: 06/04/25 09:20 Dose: 100 mg Amoxicillin/Clavulanate Potassium (Amoxicillin/Clavulanate 875 Mg Tab) 1 tab PO BIDM [facility]; Protocol Stop: 06/06/25 23:00 Last Admin: 06/04/25 18:34 Dose: 1 tab Aspirin (Aspirin 81 Mg Chew) 81 mg PO DAILY [facility] Stop: 07/01/25 08:59 Last Admin: 06/04/25 09:20 Dose: 81 mg Atorvastatin Calcium (Atorvastatin 40 Mg Tab) 80 mg PO DAILY [facility] Stop: 07/01/25 08:59 Last Admin: 06/04/25 09:20 Dose: 80 mg Bisacodyl (Bisacodyl 10 Mg Supp) 10 mg AR DAILY PRN PRN Reason: Constipation Stop: 06/30/25 16:25 Clonidine HCl (Clonidine Hcl 0.1 Mg/24 Hr Transderm Sys) 1 patch TD Q7D [facility] Stop: 07/04/25 12:59 Last Admin: 06/04/25 14:58 Dose: 1 patch Dextrose (Dextrose 50% 50 Ml Syringe) 25 - 50 ml IV UD PRN; Protocol PRN Reason: Hypoglycemia Protocol Stop: 06/30/25 11:44 Last Admin: 06/01/25 02:29 Dose: 25 ml Duloxetine HCl (Duloxetine Hcl 20 Mg Cap) 20 mg PO DAILY [facility] Stop: 07/01/25 08:59 Last Admin: 06/04/25 09:19 Dose: 20 mg Finasteride (Finasteride 5 Mg Tab) 5 mg PO DAILY DAO Stop: 07/01/25 08:59 Last Admin: 06/04/25 09:20 Dose: 5 mg Furosemide (Furosemide 40 Mg Tab) 40 mg PO DAILY DAO Stop: 07/03/25 08:59 Last Admin: 06/04/25 09:20 Dose: 40 mg Gabapentin (Gabapentin 800 Mg Tab) 800 mg PO BID DAO Stop: 06/30/25 20:59 Last Admin: 06/04/25 21:02 Dose: 800 mg Glucagon (Glucagon For Inj 1 Mg Vial) 1 mg SQ UD PRN; Protocol PRN Reason: Hypoglycemia Protocol Stop: 06/30/25 11:44 Glucose (Glucose 40% Gel 15 Gm Tube) 15 - 30 gm PO UD PRN; Protocol PRN Reason: Hypoglycemia Protocol Stop: 06/30/25 11:44 Glucose (Glucose 10 Tab/Tube) 4 - 8 tab PO UD PRN; Protocol PRN Reason: Hypoglycemia Protocol Stop: 06/30/25 11:44 Heparin Sodium (Porcine) (Heparin Sod 5,000 Unit/0.5 Ml Vial) 5,000 units SQ Q12 DAO Stop: 06/30/25 20:59 Last Admin: 06/01/25 08:17 Dose: 5,000 units Insulin Aspart (Insulin Aspart Per Unit Charge) 0 units SC ACHS DAO Stop: 07/02/25 07:29 Last Admin: 06/05/25 07:45 Dose: Not Given Insulin Glargine (Lantus Per Unit Charge) 8 units SC DAILY DAO Stop: 07/04/25 08:59 Last Admin: 06/04/25 09:20 Dose: 8 units Metoprolol Succinate (Metoprolol Succ 25mg Ext Rel Tab) 25 mg PO DAILY DAO Stop: 07/01/25 08:59 Last Admin: 06/04/25 09:19 Dose: 25 mg Miscellaneous (Carbohydrates For Hypoglycemia ) 15 - 30 gm PO UD PRN PRN Reason: Hypoglycemia Protocol Stop: 06/30/25 11:44 Miscellaneous (Remove Clonidine Patch) 1 each N/A CQWK DAO Stop: 07/04/25 12:59 Last Admin: 06/04/25 15:01 Dose: 1 each Miscellaneous (Check Clonidine Patch Placement) 1 each N/A QS DAO Stop: 07/04/25 15:59 Last Admin: 06/04/25 23:57 Dose: 1 each Miscellaneous Information (Pharmacy Glycemic Mgmt Consult) 1 each N/A UD PRN PRN Reason: Consult Stop: 06/30/25 16:25 Quetiapine Fumarate (Quetiapine Fumarate 25 Mg Tablet) 50 mg PO HS DAO Stop: 06/30/25 20:59 Last Admin: 06/04/25 21:03 Dose: 50 mg Quetiapine Fumarate (Quetiapine Fumarate 25 Mg Tablet) 25 mg PO DAILY DAO Stop: 07/01/25 08:59 Last Admin: 06/04/25 09:19 Dose: 25 mg Senna/Docusate Sodium (Docusate Sodium/Senna 50/8.6mg Tab) 1 tab PO BID DAO Stop: 06/30/25 20:59 Last Admin: 06/04/25 21:02 Dose: 1 tab Spironolactone (Spironolactone 25 Mg Tab) 25 mg PO QAM [facility] Stop: 07/05/25 08:59 Tamsulosin HCl (Tamsulosin Hcl 0.4 Mg Cap) 0.4 mg PO DAILY DAO Stop: 07/01/25 08:59 Last Admin: 06/04/25 09:19 Dose: 0.4 mg Tramadol HCl (Tramadol Hcl 50 Mg Tablet) 50 mg PO Q4H PRN PRN Reason: Pain Stop: 06/30/25 16:25 Last Admin: 06/04/25 09:19 Dose: 50 mg PG Care Time/CCT Total # of Minutes Spent Total Time Spent with Patient: Total time spent is greater than 50% in coordination of care (as documented) at patient's floor/unit and/or counseling patient: Coding Level of Care Code 78819 SUB INP/OBS CARE 3/50MIN Diagnoses Cardiomyopathy I42.9
[2025-06-05] MEDS: SPIRONOLACTONE 25 MG TAB PO SCH (08:15)
--- NOTE | 2025-06-05 14:19 | Hospitalist Progress Note ---
Date of Service June 05, 2025 Assessment & Plan (1) Lower extremity ulceration: Plan In summary, 65 yo M with type II DM with HHS, HFrEF last EF less than 20%, diabetic ulcers, hypertension, hyperlipidemia admitted for elevated BSG in the 500s and elevated lactate suspicious for HHS. He was treated with an insulin drip overnight and BSG's normalized, lactate down trended but did not completely resolve. On evaluation he was found to have bilateral lower extremity calf wounds, and toe ulcers and concern for arterial insufficiency was raised. Arterial Dopplers show severe infrapopliteal stenosis with monophasic flow. Cap refill is sluggish around 4 seconds. He continues to have some discomfort mostly on the lateral/plantar aspect of his foot. No pain of the toes, he has neuropathy and diminished sensation Type II DM, HHS suspect HHS precipitated by steroid use, possible medication noncompliance after being started on prednisone for gout flare HHS resolved. pH, bicarb, BSG all returned to goal Transitioned from gtt. to basal bolus Type II DM, heart healthy diet Chronic lower extremity wounds, history of calciphylaxis With history of enterococcal bacteremia Lower extremity wounds with ?ischemic component. Ulcers are present on the calfs bilaterally, and dorsum of the 1st and 2nd right toes. These have a pressure distribution however he also endorses a history of chronic foot pain at rest which improves at home when he hangs his legs over the side of the bed consistent with ischemic pain and is difficult to appreciate pedal pulses CTlower extremity left with contrast: Diffuse edema. Layering fluid. No drainable fluid collection. No tissue gas Arterial Dopplers 05/31/2025 with bilateral severe infrapopliteal stenosis. Monophasic flow in the feet bilaterally Vascular surgery (Dr. Ibarra) consulted. Reviewed imaging. No surgical intervention recommended at this time. Suspect more pressure in his region of his ulcers, noting that he did have a spider bite which was able to heal in the foot recently as well. Appreciate recommendations Last RUSSEL 04/2025: Right 1.14, left 1.27. No significant occlusive disease noted in the right lower extremity at that time, mild occlusive disease in the left. ? Right foot pain, tenderness, history of DFI with possible cellulitis on admission History of MSSA and enterococcal faecalis diabetic foot ulcers On admission did have an elevated lactic in the setting of suspected HHS and recent right lower extremity swelling reportedly empirically started on prednisone for possible gout Chronic nonhealing bilateral lower extremity ulcers He does not have a leukocytosis, is afebrile Was treated 05/30 at facility for possible gout flare. At that time was having persistent left heel pain. Uric acid level was elevated and had an extended NSAID course at that time. MRI was contraindicated during that workup due to 3 metal fragments in his ankle. Right foot is with erythema, no change from prior per patient. Continues to be generally tender, improving slightly when hung over the side of the bed. DDx includes cellulitis, gouty pain, and arterial insufficiency. CT is noted with diffuse edema without evidence of gas/drainable collection. Antibiotics have been continued for potential cellulitis. Concern for sluggish vascular flow and arterial insufficiency managed as noted ID consulted, pt on Zosyn -> changed to oral Augmentin. Appreciate rec ommendations History of calciphylaxis Follows with [facility] podiatry was pending outpatient follow-up as outpatient Continue wound care HFrEF No acute chest pain/chest pressure, no evidence of ACS on admission Cautious use of fluids. Clinically was volume down in the setting of HHS however is at high risk for decompensation from volume overload with excess fluids. Nearing euvolemia, IV fluids discontinued Admitted chest x-ray with possible mild vascular congestion, no overt volume overload noted. Continue metoprolol 25 mg daily, wean clonidine, increase spironolactone to 25 mg daily, continue Lasix, patient is allergic to Jardiance and start Entresto when off clonidine per Cardiology recs Follows with [facility] cardiology. Last encounter in March 2025 and have severely reduced LVEF 20-24%. Generally noncompliant with medications and is signed out of the hospital in ER multiple times in the past. - NSVT this yesterday, 4 beat pt asymptomatic, 6 and 7 beat run of V. tachycardia per phototypesetting equipment monitor. cont. to monitor on tele. Consider for ICD outpt BPH Continue Flomax -Beckford out. Post void residual minimal Anxiety/depression Continue Seroquel/duloxetine PT, OT and CM consults Looking at rehab stay at [facility] and others Trend labs Admission and Anticipated Discharge Date Admission Date: May 31, 2025 Subjective Chart and data reviewed. Blood pressures are soft. Patient very concerned about the leg ulcer. Review of Systems Review of Systems: Constitutional- no fever; no chills Eyes- no acute visual changes Pulmonary- no cough, no wheezing, no shortness of breath Cardiac- no chest pain, GI- no nausea, no vomiting, no diarrhea, - no dysuria, no hematuria Derm- multiple skin wounds on LEs Neuro- no headaches, no focal neurologic symptoms Physical Exam Physical Exam: General- adult elderly male seen at chairside. Chronic ill appearance Eyes- PERRL, EOMI, anicteric Neck- supple, no JVD, no adenopathy, Lungs- clear to auscultation and percussion Heart- regular rhythm; Abdomen- normal bowel sounds, soft, nontender, no masses or hepatosplenomegaly Extremities- Left calf large wounds/ eschar , right calf ulcers, no bleeding/oozing from around dressings. Neuro- alert, oriented x 3; PERRL, EOMI; no focal gross deficits Skin- warm & dry Results & Data Results & Data Vital Signs (Past 12 Hours) Vital Signs Temp Pulse Resp BP Pulse Ox O2 Del Method 06/05/25 10:28 36.4 C L 92 H 18 96/61 L 944 H Room Air 06/05/25 07:19 36.3 C L 78 18 84/62 L 94 Room Air 06/05/25 03:16 36.3 C L 84 18 100/69 93 Room Air Laboratory Results BMP 06/05/25 06:32 Sodium 136 Potassium 4.0 Chloride 102 Carbon Dioxide 30 BUN 27 H Creatinine 1.04 Glucose 109 H Calcium 8.3 L Diagnostic Findings Laboratory Results WBC 9.16 K/ul (4.8-10.8) 06/04/25 05:50 RBC 4.45 M/uL (4.70-6.10) L 06/04/25 05:50 Hgb 12.6 g/dl (14.0-18.0) L 06/04/25 05:50 Hct 38.4 % (42.0-52.0) L 06/04/25 05:50 MCV 86.3 fL (80.0-100.0) 06/04/25 05:50 MCH 28.3 pg (25.0-34.0) 06/04/25 05:50 MCHC 32.8 g/dL (32.0-36.0) 06/04/25 05:50 RDW Std Deviation 56.9 fL (36.4-46.3) H 06/04/25 05:50 RDW Coeff of Celina 18.0 % (11.5-14.5) H 06/04/25 05:50 Plt Count 268 K/uL (130-400) 06/04/25 05:50 MPV 10.7 fL (9.4-12.4) 06/04/25 05:50 Immature Gran % (Auto) 0.4 % 06/01/25 05:30 Neut % (Auto) 72.8 % 06/01/25 05:30 Lymph % (Auto) 17.3 % 06/01/25 05:30 Ray % (Auto) 9.2 % 06/01/25 05:30 Eos % (Auto) 0.2 % 06/01/25 05:30 Baso % (Auto) 0.1 % 06/01/25 05:30 Neut # (Auto) 7.80 K/uL (1.40-6.50) H 06/01/25 05:30 Lymph # (Auto) 1.85 K/uL (1.20-3.40) 06/01/25 05:30 Ray # (Auto) 0.98 K/uL (0.11-0.59) H 06/01/25 05:30 Eos # (Auto) 0.02 K/uL (0.00-0.50) 06/01/25 05:30 Baso # (Auto) 0.01 K/uL (0.00-0.20) 06/01/25 05:30 Immature Gran # (Auto) 0.04 K/uL (0.01-0.20) 06/01/25 05:30 Absolute Nucleated RBC Cancelled 06/01/25 04:22 Nucleated RBC % (auto) Cancelled 06/01/25 04:22 Platelet Estimate Cancelled 06/01/25 04:22 ESR 30 mm/hr (0-20) H 05/31/25 10:45 Heparin Anti-Xa, Unfract < 0.10 IU/ml (0.3-0.7) L 06/01/25 20:57 VBG pH 7.46 (7.36-7.41) H 06/04/25 05:50 VBG pCO2 42 mmHg (38-50) 06/01/25 08:29 VBG pO2 36 mmHg 06/01/25 08:29 VBG HCO3 27 mmol/L 06/01/25 08:29 VBG O2 Saturation < 60.0 % 06/01/25 08:29 VBG Base Excess 1.7 mEq/L 06/01/25 08:29 Sodium 136 mmol/L (136-145) 06/05/25 06:32 Potassium 4.0 mmol/L (3.5-5.1) 06/05/25 06:32 Chloride 102 mmol/L (98-107) 06/05/25 06:32 Carbon Dioxide 30 mmol/L (21-32) 06/05/25 06:32 Anion Gap 4 (3-11) 06/05/25 06:32 BUN 27 mg/dl (6-23) H 06/05/25 06:32 Creatinine 1.04 mg/dl (0.6-1.4) 06/05/25 06:32 Est Cr Clr Drug Dosing 81.1 ml/min 06/05/25 06:32 eGFR 80.18 06/05/25 06:32 BUN/Creatinine Ratio 26.0 (10-20) H 06/05/25 06:32 Glucose 109 mg/dl (70-99(Fasting)) H 06/05/25 06:32 POC Glucose 220 mg/dl (70-99) H 06/05/25 11:07 Estimat Average Glucose 249 mg/dl 06/01/25 04:22 Hemoglobin A1c 10.3 % (4.5-5.6) H 06/01/25 04:22 Lactate 2.1 mmol/L (0.4-2.0) H* 06/01/25 10:21 Calcium 8.3 mg/dl (8.6-10.3) L 06/05/25 06:32 Phosphorus 3.4 mg/dl (2.5-4.9) 06/04/25 05:50 Magnesium 1.9 mg/dl (1.7-2.4) 06/04/25 05:50 Total Bilirubin 0.9 mg/dl (0.2-1.0) 06/01/25 08:29 AST 57 U/L (13-39) H 06/01/25 08:29 ALT 64 U/L (7-52) H 06/01/25 08:29 Alkaline Phosphatase 92 U/L (34-104) 06/01/25 08:29 Ammonia 35.0 umol/L (18-72) 05/31/25 11:20 Troponin I High Sens 47.8 pg/ml (0-20) H 05/31/25 12:36 C-Reactive Protein 4.50 mg/dl (0-0.5) H 05/31/25 10:45 Total Protein 6.4 gm/dl (6.0-8.3) 06/01/25 08:29 Albumin 3.1 gm/dl (3.4-5.0) L 06/01/25 08:29 Globulin 3.3 gm/dl (2.5-4.0) 06/01/25 08:29 Albumin/Globulin Ratio 0.9 (0.9-2) 06/01/25 08: Procalcitonin 0.37 ng/ml (0-0.5) 05/31/25 11:20 TSH 3.371 uIu/ml (0.300-4.500) 05/31/25 10:45 Urine Color Yellow 05/31/25 17:45 Urine Appearance Clear (Clear) 05/31/25 17:45 Urine pH 5.0 (4.5-7.5) 05/31/25 17:45 Ur Specific Lequire > 1.045 (1.000-1.030) H 05/31/25 17:45 Urine Protein 2+ (Negative) H 05/31/25 17:45 Urine Glucose (UA) 3+ (Negative) H 05/31/25 17:45 Urine Ketones Trace (Negative) H 05/31/25 17:45 Urine Blood Negative (Negative) 05/31/25 17:45 Urine Nitrite Negative (Negative) 05/31/25 17:45 Urine Bilirubin Negative (Negative) 05/31/25 17:45 Urine Urobilinogen Negative (Negative) 05/31/25 17:45 Ur Leukocyte Esterase Negative (Negative) 05/31/25 17:45 Urine WBC (Auto) 0-5 /hpf (0-5) 05/31/25 17:45 Urine RBC (Auto) 0-2 /hpf (0-2) 05/31/25 17:45 U Hyaline Cast (Auto) >20 /lpf (0-2) H 05/31/25 17:45 U Epithel Cells (Auto) 6-10 /hpf (0-2) H 05/31/25 17:45 Urine Bacteria (Auto) None Seen (None Seen) 05/31/25 17:45 Hyaline Casts Present /lpf (None Presnt) A 05/31/25 17:45 Granular Casts Present /lpf (None Prsent) A 05/31/25 17:45 Urine Comment 05/31/25 17:45 Nasal Screen MRSA (PCR) Negative (Negative) 05/31/25 17:45 Impressions
[2025-06-05] MEDS ORDERED: LANTUS PER UNIT CHARGE SC SCH (14:30)
--- NOTE | 2025-06-05 14:39 | Pharmacy Report ---
Pharmacy Glycemic Short Note 2 - Date of Service June 05, 2025 - Glycemic Short BSG Results (Last 24 hours): 06/04/25 06/04/25 06/05/25 15:30 19:59 06:32 Glucose 109 H POC Glucose 172 H 188 H 06/05/25 06/05/25 07:17 11:07 Glucose POC Glucose 100 H 220 H OUTPATIENT ANTIDIABETIC REGIMEN: * Lantus 10 units SQ daily * metformin 1000mg PO BID * HbA1c 10.3% (06/01/25) ASSESSMENT: 06/05: * Lantus was held this morning d/t hypoglycemia yesterday morning. * Fasting BSG was near goal this morning. Pre-lunch BSG was elevated (220mg/dL), so Lantus was resumed this afternoon. * No additional changes at this time. Pharmacy will continue to follow. 06/04 * Insulin needs continue to trend downward. Kelby received 18 units of SC insulin yesterday (12 units Lantus, 6 units Novolog). * Despite decrease in basal insulin on 06/02 and 06/03, fasting BSG remains below goal at 66 mg/dL. Asymptomatic per RN. Decreased another 33% today. Will hold further Lantus pending improvement in fasting. * Will also loosen carb coverage for post prandial BSGs below goal range. 06/03: * Kelby received 22 units of insulin yesterday (15 were basal) * Fasting BSG this AM below goal range, first reading slightly hypoglycemic, will decrease basal insulin again and wait until lunch or administration. * No changes to NovoLog at this time, he was switched to IV Unasyn. 06/02: * Kelby received 29 units of insulin yesterday (20 were basal), plus insulin from the drip. * Fasting BSG this AM below goal range, decrease basal insulin by 20% and aim for more balanced basal bolus regimen. * Carbohydrate ratio tightened as BSGs trended up throughout the day, he is on IV Zosyn at this time. 06/01 * Kelby is a 65 year old male presenting with hyperglycemia and found to be in HHS. He has a history of insulin dependent type 2 diabetes mellitus. Pharmacy has been consulted to assist with glycemic management while inpatient. * Decision was made to begin an insulin drip yesterday afternoon upon presentation (BSG 564, AG 18, CO2 22, VBG pH 7.36). BSGs trending down overnight and labs normalized by AM. Mentation was not great per reports yesterday, but has improved this AM. HHS likely precipitated by steroid use (was on prednisone taper for gout flare) and possibly medication noncompliance evidenced by elevated HbA1c. * Drip transition this AM per Dr. Devi, NovoLog adjusted to a weight based stress of 1.5. Lantus adjusted to a scale up to a weight based stress of 2 based on BSG. * Kelby is starting on a heparin drip at this time, no ongoing steroids ordered, and no other glycemic stressors noted at this time. PLAN FOR INPATIENT GLYCEMIC CONTROL: * Hold outpatient oral diabetes medications * Basal insulin * Lantus 8 units daily * Bolus insulin * NovoLog per scale ACHS or Q6hrs while NPO * Goal Range: Low 110 mg/dL - High 180 mg/dL * Correction Factor: 30 mg/dL/unit * Nutritional / Prandial insulin per carb ratio of 1 unit per 15 grams CHO consumed
[2025-06-05] MEDS: LANTUS PER UNIT CHARGE SC SCH (15:38)
[2025-06-05] MEDS: CARBOHYDRATES FOR HYPOGLYCEMIA PO PRN (21:00)
[2025-06-06] MEDS: LANTUS PER UNIT CHARGE SC SCH (09:11)
--- NOTE | 2025-06-06 14:30 | Hospitalist Progress Note ---
Date of Service June 06, 2025 Assessment & Plan (1) Lower extremity ulceration: Plan In summary, 65 yo M with type II DM with HHS, HFrEF last EF less than 20%, diabetic ulcers, hypertension, hyperlipidemia admitted for elevated BSG in the 500s and elevated lactate suspicious for HHS. He was treated with an insulin drip overnight and BSG's normalized, lactate down trended but did not completely resolve. On evaluation he was found to have bilateral lower extremity calf wounds, and toe ulcers and concern for arterial insufficiency was raised. Arterial Dopplers show severe infrapopliteal stenosis with monophasic flow. Cap refill is sluggish around 4 seconds. He continues to have some discomfort mostly on the lateral/plantar aspect of his foot. No pain of the toes, he has neuropathy and diminished sensation Type II DM, HHS suspect HHS precipitated by steroid use, possible medication noncompliance after being started on prednisone for gout flare HHS resolved. pH, bicarb, BSG all returned to goal Transitioned from gtt. to basal bolus Type II DM, heart healthy diet Chronic lower extremity wounds, history of calciphylaxis With history of enterococcal bacteremia Lower extremity wounds with ?ischemic component. Ulcers are present on the calfs bilaterally, and dorsum of the 1st and 2nd right toes. These have a pressure distribution however he also endorses a history of chronic foot pain at rest which improves at home when he hangs his legs over the side of the bed consistent with ischemic pain and is difficult to appreciate pedal pulses CTlower extremity left with contrast: Diffuse edema. Layering fluid. No drainable fluid collection. No tissue gas Arterial Dopplers 05/31/2025 with bilateral severe infrapopliteal stenosis. Monophasic flow in the feet bilaterally Vascular surgery (Dr. Ibarra) consulted. Reviewed imaging. No surgical intervention recommended at this time. Suspect more pressure in his region of his ulcers, noting that he did have a spider bite which was able to heal in the foot recently as well. Appreciate recommendations Last RUSSEL 04/2025: Right 1.14, left 1.27. No significant occlusive disease noted in the right lower extremity at that time, mild occlusive disease in the left. ? Right foot pain, tenderness, history of DFI with possible cellulitis on admission History of MSSA and enterococcal faecalis diabetic foot ulcers On admission did have an elevated lactic in the setting of suspected HHS and recent right lower extremity swelling reportedly empirically started on prednisone for possible gout Chronic nonhealing bilateral lower extremity ulcers He does not have a leukocytosis, is afebrile Was treated 05/30 at facility for possible gout flare. At that time was having persistent left heel pain. Uric acid level was elevated and had an extended NSAID course at that time. MRI was contraindicated during that workup due to 3 metal fragments in his ankle. Right foot is with erythema, no change from prior per patient. Continues to be generally tender, improving slightly when hung over the side of the bed. DDx includes cellulitis, gouty pain, and arterial insufficiency. CT is noted with diffuse edema without evidence of gas/drainable collection. Antibiotics have been continued for potential cellulitis. Concern for sluggish vascular flow and arterial insufficiency managed as noted ID consulted, pt on Zosyn -> changed to oral Augmentin until 06/06. Mag reciate recommendations History of calciphylaxis Follows with [facility] podiatry was pending outpatient follow-up as outpatient Continue wound care HFrEF No acute chest pain/chest pressure, no evidence of ACS on admission Cautious use of fluids. Clinically was volume down in the setting of HHS however is at high risk for decompensation from volume overload with excess fluids. Nearing euvolemia, IV fluids discontinued Admitted chest x-ray with possible mild vascular congestion, no overt volume overload noted. Continue metoprolol 25 mg daily, wean clonidine, increase spironolactone to 25 mg daily, continue Lasix, patient is allergic to Jardiance and start Entresto when off clonidine per Cardiology recs Follows with [facility] cardiology. Last encounter in March 2025 and have severely reduced LVEF 20-24%. Generally noncompliant with medications and is signed out of the hospital in ER multiple times in the past. - NSVT this yesterday, 4 beat pt asymptomatic, 6 and 7 beat run of V. tachycardia per conveyor monitor. cont. to monitor on tele. Consider for ICD outpt BPH Continue Flomax -Beckford out. Post void residual minimal Anxiety/depression Continue Seroquel/duloxetine Diabetic neuropathy Continue gabapentin PT, OT and CM consults Looking at rehab stay at [facility] and [place] at this point Trend labs Admission and Anticipated Discharge Date Admission Date: May 31, 2025 Subjective Chart and 24-hour vital signs reviewed. Patient has no new complaints other than the persisting pain and neuropathic pain in his feet. He denies chest pain or shortness of breath currently. Events Overnight: * None * + 1 short run of NSVT Physical Exam Physical Exam: General- adult elderly male seen at chairside. Chronic ill appearance Eyes- PERRL, EOMI, anicteric Neck- supple, no JVD, no adenopathy, Lungs- clear to auscultation and percussion Heart- regular rhythm; Abdomen- normal bowel sounds, soft, nontender, no masses or hepatosplenomegaly Extremities- Left calf large wounds/ eschar , right calf ulcers, no bleeding/oozing from around dressings. Neuro- alert, oriented x 3; PERRL, EOMI; no focal gross deficits Skin- warm & dry Results & Data Results & Data Vital Signs (Past 12 Hours) Vital Signs Temp Pulse Pulse Resp BP Pulse Ox O2 Del Method 06/06/25 13:03 101 H 06/06/25 11:16 36.3 C L 100 H 18 106/74 100 Room Air 06/06/25 09:57 98 H 123/86 06/06/25 07:24 36.4 C L 90 20 101/68 95 Room Air 06/06/25 05:28 86 06/06/25 03:42 36.3 C L 86 16 107/72 97 Room Air
[2025-06-07 06:14] LABS: Hematocrit (blood only) 37.1 % (42.0-52.0); Hemoglobin 11.7 g/dl (14.0-18.0); Mean Corpuscular Hemoglobin 27.4 pg (25.0-34.0); Mean Corpuscular Volume 86.9 fL (80.0-100.0); Platelet Count 258 K/uL (130-400); RDW Standard Deviation 57.4 fL (36.4-46.3); Red Blood Count 4.27 M/uL (4.70-6.10); White Blood Count 9.06 K/ul (4.8-10.8)
[2025-06-07 06:44] LABS: Anion Gap 8.0 (3-11); Blood Urea Nitrogen 29.0 mg/dl (6-23); Calcium 8.7 mg/dl (8.6-10.3); Carbon Dioxide 27.0 mmol/L (21-32); Chloride 100.0 mmol/L (98-107); Creatinine Clr Calc Pharmacy 95.8 ml/min; Glucose 78.0 mg/dl (70-99(Fasting)); Potassium 4.1 mmol/L (3.5-5.1); Sodium 135.0 mmol/L (136-145)
--- NOTE | 2025-06-07 11:51 | Hospitalist Progress Note ---
Date of Service June 07, 2025 Assessment & Plan (1) Lower extremity ulceration: Plan In summary, 65 yo M with type II DM with HHS, HFrEF last EF less than 20%, diabetic ulcers, hypertension, hyperlipidemia admitted for elevated BSG in the 500s and elevated lactate suspicious for HHS. He was treated with an insulin drip on admission overnight and BSG's normalized, lactate down trended. On evaluation he was found to have bilateral lower extremity calf wounds, and toe ulcers and concern for arterial insufficiency was raised. Arterial Dopplers show severe infrapopliteal stenosis with monophasic flow. Cap refill is sluggish around 4 seconds. He continues to have some discomfort mostly on the lateral/plantar aspect of both feet. He has known neuropathy and diminished sensation Type II DM, HHS suspect HHS precipitated by steroid use, possible medication noncompliance after being started on prednisone for gout flare HHS resolved. pH, bicarb, BSG all returned to goal Transitioned from gtt. to basal bolus Type II DM, heart healthy diet Chronic lower extremity wounds, history of calciphylaxis With history of enterococcal bacteremia Lower extremity wounds. CTlower extremity left with contrast: Diffuse edema. Layering fluid. No drainable fluid collection. No tissue gas Arterial Dopplers 05/31/2025 with bilateral severe infrapopliteal stenosis. Monophasic flow in the feet bilaterally Vascular surgery (Dr. Ibarra) consulted. Reviewed imaging. No surgical intervention recommended at this time. Suspect more pressure in his region of his ulcers, noting that he did have a spider bite which was able to heal in the foot recently as well. Appreciate recommendations Last RUSSEL 04/2025: Right 1.14, left 1.27. No significant occlusive disease noted in the right lower extremity at that time, mild occlusive disease in the left. B/L foot pain, tenderness, history of DFI with possible cellulitis on admission History of MSSA and enterococcal faecalis diabetic foot ulcers On admission did have an elevated lactic in the setting of suspected HHS and recent right lower extremity swelling reportedly empirically started on prednisone for possible gout Chronic nonhealing bilateral lower extremity ulcers Was treated 05/30 at facility for possible gout flare. At that time was having persistent left heel pain. Uric acid level was elevated and had an extended NSAID course at that time. MRI was contraindicated during that workup due to 3 metal fragments in his ankle. Right foot is with erythema, no change from prior per patient. Continues to be generally tender, improving slightly when hung over the side of the bed. DDx includes cellulitis, gouty pain, and arterial insufficiency. CT is noted with diffuse edema without evidence of gas/drainable collection. Antibiotics have been continued for potential cellulitis. Concern for sluggish vascular flow and arterial insufficiency managed as noted ID consulted, pt was on Zosyn -> changed to oral Augmentin until 06/06. Appreciate recommendations History of calciphylaxis Follows with [facility] podiatry was pending outpatient follow-up as outpatient Continue wound care HFrEF No acute chest pain/chest pressure, no evidence of ACS on admission Cautious use of fluids. Clinically was volume down in the setting of HHS however is at high risk for decompensation from volume overload with excess fluids. Nearing euvolemia, IV fluids discontinued Admitted chest x-ray with possible mild vascular congestion, no overt volume overload noted. Continue metoprolol 25 mg daily, wean clonidine, increase spironolactone to 25 mg daily, continue Lasix, patient is allergic to Jardiance and start Entresto when off clonidine per Cardiology recs Follows with [facility] cardiology. Last encounter in March 2025 and have severely reduced LVEF 20-24%. Generally noncompliant with medications and is signed out of the hospital in ER multiple times in the past. - NSVT this yesterday, 4 beat pt asymptomatic, 6 and 7 beat run of V. tachycardia per shelter monitor. cont. to monitor on tele. Consider for ICD outpt BPH Continue Flomax -Beckford out. Post void residual minimal Anxiety/depression Continue Seroquel/duloxetine Diabetic neuropathy Continue gabapentin, will try to add a third dose PT, OT and CM consults Looking at rehab stay at [facility] but denied by insurance. Called for peer to peer but they never returned call. Looking at [place] and [place] in [facility] Admission and Anticipated Discharge Date Admission Date: May 31, 2025 Subjective Chart and 24-hour vital signs reviewed. Vital signs are stable. No overnight events noted. Still has persisting pain and neuropathic pain in his feet. He denies chest pain or shortness of breath currently. No palpitations. The wound seems to be healing from the left lower extremity. Per nursing he still pretty unsteady with his walker. Physical Exam Physical Exam: General- adult elderly male seen at chairside. Chronic ill appearance Eyes- PERRL, EOMI, Neck- supple, no JVD, Lungs- clear to auscultation and percussion Heart- regular rhythm; Abdomen- normal bowel sounds, soft, nontender, no masses or hepatosplenomegaly Extremities-dressings are intact, no bleeding/oozing from around dressings. Neuro- alert, oriented x 3; PERRL, EOMI; dense sensory loss in the feet Skin- warm & dry Results & Data Results & Data Vital Signs (Past 12 Hours) Vital Signs Temp Pulse Resp BP Pulse Ox O2 Del Method 06/07/25 10:55 36.5 C 98 H 20 103/73 93 Room Air 06/07/25 06:58 36.3 C L 95 H 21 112/88 90 Room Air 06/07/25 04:37 36.7 C 94 H 18 109/80 94 Room Air 06/06/25 23:59 36.8 C 97 H 17 105/72 94 Room Air Laboratory Results Short CBC 06/07/25 Range/Units 05:31 WBC 9.06 (4.8-10.8) K/ul Hgb 11.7 L (14.0-18.0) g/dl Hct 37.1 L (42.0-52.0) % Plt Count 258 (130-400) K/uL BMP 06/07/25 05:31 Sodium 135 L Potassium 4.1 Chloride 100 Carbon Dioxide 27 BUN 29 H Creatinine 0.88 Glucose 78 Calcium 8.7
[2025-06-07] MEDS: LANTUS PER UNIT CHARGE SC SCH (12:03)
[2025-06-07] MEDS: GABAPENTIN 300 MG CAP PO SCH (20:57)
--- NOTE | 2025-06-08 09:07 | Pharmacy Report ---
Pharmacy Glycemic Short Note 2 - Date of Service June 08, 2025 - Glycemic Short BSG Results (Last 24 hours): 06/07/25 06/07/25 06/07/25 11:27 16:12 20:51 POC Glucose 224 H 232 H 281 H 06/08/25 07:20 POC Glucose 113 H OUTPATIENT ANTIDIABETIC REGIMEN: * Lantus 10 units SQ daily * metformin 1000mg PO BID HbA1c: 10.3% (06/01/25) ASSESSMENT: 06/08/25: * Basal insulin was reduced yesterday due to fasting blood sugar of 77 mg/dL * Patient was hyperglycemic the rest of the day (>200 mg/dL) * If trend continues, will tighten carb ratio * Awaiting placement 06/05: * Lantus was held this morning d/t hypoglycemia yesterday morning. * Fasting BSG was near goal this morning. Pre-lunch BSG was elevated (220mg/dL), so Lantus was resumed this afternoon. * No additional changes at this time. Pharmacy will continue to follow. 06/04 * Insulin needs continue to trend downward. Kelby received 18 units of SC insulin yesterday (12 units Lantus, 6 units Novolog). * Despite decrease in basal insulin on 06/02 and 06/03, fasting BSG remains below goal at 66 mg/dL. Asymptomatic per RN. Decreased another 33% today. Will hold further Lantus pending improvement in fasting. * Will also loosen carb coverage for post prandial BSGs below goal range. 06/03: * Kelby received 22 units of insulin yesterday (15 were basal) * Fasting BSG this AM below goal range, first reading slightly hypoglycemic, will decrease basal insulin again and wait until lunch or administration. * No changes to NovoLog at this time, he was switched to IV Unasyn. 06/02: * Kelby received 29 units of insulin yesterday (20 were basal), plus insulin from the drip. * Fasting BSG this AM below goal range, decrease basal insulin by 20% and aim for more balanced basal bolus regimen. * Carbohydrate ratio tightened as BSGs trended up throughout the day, he is on IV Zosyn at this time. 06/01 * Kelby is a 65 year old male presenting with hyperglycemia and found to be in HHS. He has a history of insulin dependent type 2 diabetes mellitus. Pharmacy has been consulted to assist with glycemic management while inpatient. * Decision was made to begin an insulin drip yesterday afternoon upon presentation (BSG 564, AG 18, CO2 22, VBG pH 7.36). BSGs trending down overnight and labs normalized by AM. Mentation was not great per reports yesterday, but has improved this AM. HHS likely precipitated by steroid use (was on prednisone taper for gout flare) and possibly medication noncompliance evidenced by elevated HbA1c. * Drip transition this AM per Dr. Devi, NovoLog adjusted to a weight based stress of 1.5. Lantus adjusted to a scale up to a weight based stress of 2 based on BSG. * Kelby is starting on a heparin drip at this time, no ongoing steroids ordered, and no other glycemic stressors noted at this time. PLAN FOR INPATIENT GLYCEMIC CONTROL: * Hold outpatient oral diabetes medications * Basal insulin * Lantus 5 units SC daily * Bolus insulin * NovoLog per scale ACHS or Q6hrs while NPO * Goal Range: Low 110 mg/dL - High 180 mg/dL * Correction Factor: 30 mg/dL/unit * Nutritional / Prandial insulin per carb ratio of 1 unit per 10 grams CHO consumed
--- NOTE | 2025-06-08 16:46 | Hospitalist Progress Note ---
Date of Service June 08, 2025 Assessment & Plan (1) Lower extremity ulceration: Plan Mr. Oreilly is a 65 year old gentleman with type II DM with HHS, HFrEF last EF less than 20%, diabetic ulcers, hypertension, hyperlipidemia admitted for elevated BSG in the 500s and elevated lactate suspicious for HHS. He was treated with an insulin drip on admission overnight and BSG's normalized, lactate down trended. Patient was noted to have BLE wounds and ulcers. Vascular was consulted and noted that his RUSSEL appear normal--he suspected the wounds on his posterior calves are more likely pressure related.There was no indication for intervention outside of local wound care and pressure offloading. Cardiology was consulted for NSVT. It was recommended he continue his therapies, stop clonidine and start entresto. Patient is now pending placement at this time. #Type II DM, HHS suspect HHS precipitated by steroid use, possible medication noncompliance after being started on prednisone for gout flare HHS resolved. pH, bicarb, BSG all returned to goal Transitioned from gtt. 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 Layering fluid. No drainable fluid collection. No tissue gas Arterial Dopplers 05/31/2025 with bilateral severe infrapopliteal stenosis. Monophasic flow in the feet bilaterally Vascular surgery (Dr. Ibarra): No surgical intervention recommended at this time, encouraged offloading and therapy continue local wound care #B/L foot pain, tenderness #history of DFI with possible cellulitis on admission Right foot is with erythema, no change from prior per patient. Continues to be generally tender, improving slightly when hung over the side of the bed. DDx includes cellulitis, gouty pain, and arterial insufficiency. CT is noted with diffuse edema without evidence of gas/drainable collection. Antibiotics have been continued for potential cellulitis. Concern for sluggish vascular flow and arterial insufficiency managed as noted ID consulted, pt was on Zosyn ->completed augmentin 06/06 -ensure OP podiatry follow up #Chronic HFrEF #NSVT 03/2025 severely reduced LVEF 20-24% No acute chest pain/chest pressure, no evidence of ACS on admission Cardiolog consulted given NSVT on monitor: will need Cardiology follow up for OP consideratoin of ICD Continue metoprolol XL 25 mg daily -Home spironolactone increased -Report perineum pain with Jardiance--will hold starting at this time -Starting entresto 12/13mg BID tomorrow am -Continue home furosmide #BPH Continue Flomax -Beckford out. Post void residual minimal #Anxiety/depression Continue Seroquel/duloxetine #Diabetic neuropathy Continue gabapentin PT, OT and CM consults Pending placement for SNF medically stable for discharge downgrade to med/surg I spent a total of 57 minutes coordinating, documenting, and providing care for this patient excluding time spent in the performance of separately billed services. All of the aforementioned completed while collaborating with the assigned attending physician for a full treatment plan. Please see their addendum for further details. Admission and Anticipated Discharge Date Admission Date: May 31, 2025 Subjective Evaluated at bedside Reports no new concerns, states he is motivated and moving more at bedside and eager to get stronger Denies any chest pain, palpitations or other acute concerns pending placement Physical Exam Constitutional: WD/WN, vitals as above Respiratory: normal respiratory effort, lungs clear to auscultation Cardiovascular: RRR, no murmur, no edema Gastrointestinal (Abdomen): normal bowel sounds, soft, nontender, no hepatosplenomegaly Results & Data Results & Data Vital Signs (Past 12 Hours) Vital Signs Temp Pulse Pulse Resp BP BP Pulse Ox 06/08/25 15:23 36.3 C L 87 20 102/69 100 06/08/25 14:26 81 06/08/25 11:14 36.4 C L 88 19 98/64 L 100 06/08/25 09:08 36.3 C L 97 H 16 114/61 97 06/08/25 04:36 36.6 C 80 17 94/68 L 94 O2 Del Method 06/08/25 15:23 Room Air 06/08/25 14:26 06/08/25 11:14 Room Air 06/08/25 09:08 Room Air 06/08/25 04:36 Room Air Medications Administered Home Medications Medication Instructions Recorded Confirmed Last Taken blood-glucose meter #1 ea 05/12/21 09/17/23 Unknown lancets 30 gauge #100 ea 05/12/21 09/17/23 Unknown blood sugar diagnostic #400 ea 01/08/23 09/17/23 Unknown Insta-Glucose 1 applic buccal DAILY PRN 05/31/25 05/31/25 Unknown Hypoglycemia Milk of Magnesia 30 ml PO DAILY PRN Constipation 05/31/25 05/31/25 Unknown acetaminophen 325 mg tablet 650 mg PO Q6H PRN Mild Pain (Scale 05/31/25 05/31/25 Unknown Score 1-4) acetaminophen 325 mg tablet 650 mg PO Q6H PRN temp>101 05/31/25 05/31/25 Unknown allopurinol 100 mg tablet 100 mg PO DAILY 05/31/25 05/31/25 Unknown aspirin 81 mg chewable tablet 81 mg PO DAILY 05/31/25 05/31/25 Unknown atorvastatin 80 mg tablet 80 mg PO DAILY 05/31/25 05/31/25 Unknown bisacodyl 10 mg rectal suppository 10 mg AK DAILY PRN Constipation 05/31/25 05/31/25 Unknown (Dulcolax (bisacodyl)) capsaicin 0.1 % topical cream 1 applic topical .DAILY FOR 10 DAYS 05/31/25 05/31/25 Unknown carisoprodol 350 mg tablet (Soma) 350 mg PO Q6H PRN muscle pain 05/31/25 5 Unknown clonidine 0.2 mg/24 hr weekly 0.2 mg transdermal .Q Sunday05/31/25 05/31/25 Unknown transdermal patch colchicine 0.6 mg tablet 0.6 mg PO Q12H PRN gout flare 05/31/25 05/31/25 Unknown duloxetine 20 mg capsule,delayed 20 mg PO DAILY 05/31/25 05/31/25 Unknown release finasteride 5 mg tablet 5 mg PO DAILY 05/31/25 05/31/25 Unknown furosemide 40 mg tablet 40 mg PO DAILY 05/31/25 05/31/25 Unknown gabapentin 800 mg tablet 800 mg PO BID 05/31/25 05/31/25 Unknown (Neurontin) glucagon 1 mg injection kit 1 mg IM DAILY PRN Hypoglycemia 05/31/25 05/31/25 Unknown insulin glargine 100 unit/mL (3 10 unit subcut DAILY 05/31/25 05/31/25 Unknown mL) subcutaneous pen (Lantus Solostar U-100 Insulin) magnesium oxide 500 mg capsule 400 mg PO DAILY 05/31/25 05/31/25 Unknown metformin 1,000 mg tablet 1,000 mg PO Q12 05/31/25 05/31/25 Unknown metoprolol succinate 25 mg 25 mg PO DAILY 05/31/25 05/31/25 Unknown tablet,extended release 24 hr prednisone 10 mg tablet 10 mg PO .DAILY FOR 4 DAYS 05/31/25 05/31/25 Unknown quetiapine 25 mg tablet (Seroquel) 25 mg PO DAILY 05/31/25 05/31/25 Unknown quetiapine 25 mg tablet (Seroquel) 50 mg PO HS 05/31/25 05/31/25 Unknown repaglinide 2 mg tablet 1 mg PO .DAILY BEFORE MEALS 05/31/25 05/31/25 Unknown sennosides 8.6 mg-docusate sodium 1 tab-cap PO BID 05/31/25 05/31/25 Unknown 50 mg tablet (Senna-S) sodium phosphates 19 gram-7 118 ml [place] DAILY PRN Constipation 05/31/25 05/31/25 Unknown gram/118 mL enema (Enema) spironolactone 25 mg tablet 12.5 mg PO DAILY 05/31/25 05/31/25 Unknown tamsulosin 0.4 mg capsule 0.4 mg PO DAILY 05/31/25 05/31/25 Unknown tramadol 50 mg tablet 50 mg PO Q4H PRN Pain 05/31/25 05/31/25 Unknown Active Medications Generic Name Dose Route Start Last Admin Trade Name Dainq PRN Reason Stop Dose Admin Allopurinol 100 mg 06/01/25 09:00 06/08/25 09:11 Allopurinol 100 Mg Tab PO 07/01/25 08:59 100 mg DAILY DAO Administration Aspirin 81 mg 06/01/25 09:00 06/08/25 09:11 Aspirin 81 Mg Chew PO 07/01/25 08:59 81 mg DAILY DAO Administration Atorvastatin Calcium 80 mg 06/01/25 09:00 06/08/25 09:11 Atorvastatin 40 Mg Tab PO 07/01/25 08:59 80 mg DAILY DAO Administration Clonidine HCl 1 patch 06/04/25 13:00 06/04/25 14:58 Clonidine Hcl 0.1 Mg/24 Hr Transderm Sys TD 07/04/25 12:59 1 patch Q7D DAO Administration Dextrose 25 - 50 ml 05/31/25 11:45 06/01/25 02:29 Dextrose 50% 50 Ml Syringe IV 06/30/25 11:44 25 ml UD PRN Administration Hypoglycemia Protocol Protocol Duloxetine HCl 20 mg 06/01/25 09:00 06/08/25 09:11 Duloxetine Hcl 20 Mg Cap PO 07/01/25 08:59 20 mg DAILY DAO Administration Finasteride 5 mg 06/01/25 09:00 06/08/25 09:12 Finasteride 5 Mg Tab PO 07/01/25 08:59 5 mg DAILY DAO Administration Furosemide 40 mg 06/03/25 09:00 06/08/25 09:11 Furosemide 40 Mg Tab PO 07/03/25 08:59 40 mg DAILY DAO Administration Gabapentin 900 mg 06/07/25 21:00 06/08/25 09:12 Gabapentin 300 Mg Cap PO 07/07/25 20:59 900 mg BID DAO Administration Heparin Sodium (Porcine) 5,000 units 05/31/25 21:00 06/01/25 08:17 Heparin Sod 5,000 Unit/0.5 Ml Vial SQ 06/30/25 20:59 5,000 units Q12 DAO Administration Insulin Aspart 0 units 06/02/25 07:30 06/08/25 12:22 Insulin Aspart Per Unit Charge SC 07/02/25 07:29 5 units ACHS DAO Administration Insulin Glargine 5 units 06/07/25 11:30 06/08/25 09:26 Lantus Per Unit Charge SC 07/07/25 11:29 5 units DAILY DAO Administration Metoprolol Succinate 25 mg 06/01/25 09:00 06/08/25 09:11 Metoprolol Succ 25mg Ext Rel Tab PO 07/01/25 08:59 25 mg DAILY DAO Administration Miscellaneous 15 - 30 gm 05/31/25 11:45 06/05/25 21:00 Carbohydrates For Hypoglycemia PO 06/30/25 11:44 15 gm UD PRN Administration Hypoglycemia Protocol Miscellaneous 1 each 06/04/25 13:00 06/04/25 15:01 Remove Clonidine Patch N/A 07/04/25 12:59 1 each CQWK DAO Administration Miscellaneous 1 each 06/04/25 16:00 06/08/25 09:13 Check Clonidine Patch Placement N/A 07/04/25 15:59 1 each QS DAO Administration Quetiapine Fumarate 50 mg 05/31/25 21:00 06/07/25 20:56 Quetiapine Fumarate 25 Mg Tablet PO 06/30/25 20:59 50 mg HS DAO Administration Quetiapine Fumarate 25 mg 06/01/25 09:00 06/08/25 09:11 Quetiapine Fumarate 25 Mg Tablet PO 07/01/25 08:59 25 mg DAILY DAO Administration Senna/Docusate Sodium 1 tab 05/31/25 21:00 06/08/25 09:26 Docusate Sodium/Senna 50/8.6mg Tab PO 06/30/25 20:59 1 tab BID DAO Administration Spironolactone 25 mg 06/05/25 09:00 06/08/25 09:12 Spironolactone 25 Mg Tab PO 07/05/25 08:59 25 mg QAM DAO Administration Tamsulosin HCl 0.4 mg 06/01/25 09:00 06/08/25 09:11 Tamsulosin Hcl 0.4 Mg Cap PO 07/01/25 08:59 0.4 mg DAILY DAO Administration Tramadol HCl 50 mg 05/31/25 16:26 06/08/25 10:17 Tramadol Hcl 50 Mg Tablet PO 06/30/25 16:25 50 mg Q4H PRN Administration Pain
[2025-06-09 07:22] LABS: Hematocrit (blood only) 33.5 % (42.0-52.0); Hemoglobin 10.8 g/dl (14.0-18.0); Mean Corpuscular Hemoglobin 27.8 pg (25.0-34.0); Mean Corpuscular Volume 86.3 fL (80.0-100.0); Platelet Count 228 K/uL (130-400); RDW Standard Deviation 55.9 fL (36.4-46.3); Red Blood Count 3.88 M/uL (4.70-6.10); White Blood Count 8.17 K/ul (4.8-10.8)
[2025-06-09] MEDS: POLYETHYLENE (MIRALAX) 17 GM PACK PO SCH (08:35)
[2025-06-09] MEDS: VALSARTAN/SACUBITRIL 26/24MG TAB PO SCH (08:38)
[2025-06-09 08:46] LABS: Anion Gap 8.0 (3-11); Blood Urea Nitrogen 28.0 mg/dl (6-23); Calcium 8.5 mg/dl (8.6-10.3); Carbon Dioxide 26.0 mmol/L (21-32); Chloride 101.0 mmol/L (98-107); Creatinine Clr Calc Pharmacy 96.9 ml/min; Glucose 90.0 mg/dl (70-99(Fasting)); Magnesium 1.9 mg/dl (1.7-2.4); Potassium 4.1 mmol/L (3.5-5.1); Sodium 135.0 mmol/L (136-145)
[2025-06-09] MEDS ORDERED: Nursing to Pharmacy Communication SCH (11:45)
--- NOTE | 2025-06-09 18:04 | Hospitalist Progress Note ---
Date of Service June 09, 2025 Assessment & Plan (1) Lower extremity ulceration: Plan Mr. Oreilly is a 65 year old gentleman with type II DM with HHS, HFrEF last EF less than 20%, diabetic ulcers, hypertension, hyperlipidemia admitted for elevated BSG in the 500s and elevated lactate suspicious for HHS. He was treated with an insulin drip on admission overnight and BSG's normalized, lactate down trended. Patient was noted to have BLE wounds and ulcers. Vascular was consulted and noted that his RUSESL appear normal--he suspected the wounds on his posterior calves are more likely pressure related.There was no indication for intervention outside of local wound care and pressure offloading. Cardiology was consulted for NSVT. It was recommended he continue his therapies, stop clonidine and start entresto. Patient is now pending placement at this time. Patient reports doing well overall at this time and ready for rehab. #Type II DM, HHS suspect HHS precipitated by steroid use, possible medication noncompliance after being started on prednisone for gout flare HHS resolved. pH, bicarb, BSG all returned to goal Transitioned from gtt. 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 Layering fluid. No drainable fluid collection. No tissue gas Arterial Dopplers 05/31/2025 with bilateral severe infrapopliteal stenosis. Monophasic flow in the feet bilaterally Vascular surgery (Dr. Ibarra): No surgical intervention recommended at this time, encouraged offloading and therapy continue local wound care #B/L foot pain, tenderness #history of DFI with possible cellulitis on admission Right foot is with erythema, no change from prior per patient. Continues to be generally tender, improving slightly when hung over the side of the bed. DDx includes cellulitis, gouty pain, and arterial insufficiency. CT is noted with diffuse edema without evidence of gas/drainable collection. Antibiotics have been continued for potential cellulitis. Concern for sluggish vascular flow and arterial insufficiency managed as noted ID consulted, pt was on Zosyn ->completed augmentin 06/06 -ensure OP podiatry follow up #Chronic HFrEF #NSVT 03/2025 severely reduced LVEF 20-24% No acute chest pain/chest pressure, no evidence of ACS on admission Cardiolog consulted given NSVT on monitor: will need Cardiology follow up for OP consideration of ICD Continue metoprolol XL 25 mg daily -Home spironolactone increased -Report perineum pain with Jardiance--will hold starting at this time -Continue entresto 12/13mg BID, newly started -Continue home furosemide Will need close cardiology follow up #BPH Continue Flomax -Beckford out. Post void residual minimal #Anxiety/depression Continue Seroquel/duloxetine #Diabetic neuropathy Continue gabapentin PT, OT and CM consults Pending placement for SNF medically stable for discharge I spent a total of 55minutes coordinating, documenting, and providing care for this patient excluding time spent in the performance of separately billed services. All of the aforementioned completed while collaborating with the assigned attending physician for a full treatment plan. Please see their addendum for further details. Admission and Anticipated Discharge Date Admission Date: May 31, 2025 Subjective NAEO Reports doing well overall denies any chest pain, palpitations or other issues Physical Exam Constitutional: WD/WN, vitals as above Respiratory: diminished in bases, no crackles however Cardiovascular: RRR, no murmur, no edema Gastrointestinal (Abdomen): normal bowel sounds, soft, nontender, no hepatosplenomegaly Results & Data Results & Data Vital Signs (Past 12 Hours) Vital Signs Temp Pulse Resp BP Pulse Ox O2 Del Method 06/09/25 11:37 36.6 C 109 H 20 96/60 L 93 Room Air 06/09/25 08:00 Room Air 06/09/25 07:33 36.4 C L 91 H 19 105/72 95 Room Air Laboratory Results Short CBC 06/09/25 Range/Units 06:51 WBC 8.17 (4.8-10.8) K/ul Hgb 10.8 L (14.0-18.0) g/dl Hct 33.5 L (42.0-52.0) % Plt Count 228 (130-400) K/uL BMP 06/09/25 06:51 Sodium 135 L Potassium 4.1 Chloride 101 Carbon Dioxide 26 BUN 28 H Creatinine 0.87 Glucose 90 Calcium 8.5 L Medications Administered Home Medications Medication Instructions Recorded Confirmed Last Taken blood-glucose meter #1 ea 05/12/21 09/17/23 Unknown lancets 30 gauge #100 ea 05/12/21 09/17/23 Unknown blood sugar diagnostic #400 ea 01/08/23 09/17/23 Unknown Insta-Glucose 1 applic buccal DAILY PRN 05/31/25 05/31/25 Unknown Hypoglycemia Milk of Magnesia 30 ml PO DAILY PRN Constipation 05/31/25 05/31/25 Unknown acetaminophen 325 mg tablet 650 mg PO Q6H PRN Mild Pain (Scale 05/31/25 05/31/25 Unknown Score 1-4) acetaminophen 325 mg tablet 650 mg PO Q6H PRN temp>101 05/31/25 05/31/25 Unknown allopurinol 100 mg tablet 100 mg PO DAILY 05/31/25 05/31/25 Unknown aspirin 81 mg chewable tablet 81 mg PO DAILY 05/31/25 05/31/25 Unknown atorvastatin 80 mg tablet 80 mg PO DAILY 05/31/25 05/31/25 Unknown bisacodyl 10 mg rectal suppository 10 mg TN DAILY PRN Constipation 05/31/25 05/31/25 Unknown (Dulcolax (bisacodyl)) capsaicin 0.1 % topical cream 1 applic topical .DAILY FOR 10 DAYS 05/31/25 05/31/25 Unknown carisoprodol 350 mg tablet (Soma) 350 mg PO Q6H PRN muscle pain 05/31/25 05/31/25 Unknown clonidine 0.2 mg/24 hr weekly 0.2 mg transdermal .Q Sunday05/31/25 05/31/25 Unknown transdermal patch colchicine 0.6 mg tablet 0.6 mg PO Q12H PRN gout flare 05/31/25 05/31/25 Unknown duloxetine 20 mg capsule,delayed 20 mg PO DAILY 05/31/25 05/31/25 Unknown release finasteride 5 mg tablet 5 mg PO DAILY 05/31/25 05/31/25 Unknown furosemide 40 mg tablet 40 mg PO DAILY 05/31/25 05/31/25 Unknown gabapentin 800 mg tablet 800 mg PO BID 05/31/25 05/31/25 Unknown (Neurontin) glucagon 1 mg injection kit 1 mg IM DAILY PRN Hypoglycemia 05/31/25 05/31/25 U nknown insulin glargine 100 unit/mL (3 10 unit subcut DAILY 05/31/25 05/31/25 Unknown mL) subcutaneous pen (Lantus Solostar U-100 Insulin) magnesium oxide 500 mg capsule 400 mg PO DAILY 05/31/25 05/31/25 Unknown metformin 1,000 mg tablet 1,000 mg PO Q12 05/31/25 05/31/25 Unknown metoprolol succinate 25 mg 25 mg PO DAILY 05/31/25 05/31/25 Unknown tablet,extended release 24 hr prednisone 10 mg tablet 10 mg PO .DAILY FOR 4 DAYS 05/31/25 05/31/25 Unknown quetiapine 25 mg tablet (Seroquel) 25 mg PO DAILY 05/31/25 05/31/25 Unknown quetiapine 25 mg tablet (Seroquel) 50 mg PO HS 05/31/25 05/31/25 Unknown repaglinide 2 mg tablet 1 mg PO .DAILY BEFORE MEALS 05/31/25 05/31/25 Unknown sennosides 8.6 mg-docusate sodium 1 tab-cap PO BID 05/31/25 05/31/25 Unknown 50 mg tablet (Senna-S) sodium phosphates 19 gram-7 118 ml [place] DAILY PRN Constipation 05/31/25 05/31/25 Unknown gram/118 mL enema (Enema) spironolactone 25 mg tablet 12.5 mg PO DAILY 05/31/25 05/31/25 Unknown tamsulosin 0.4 mg capsule 0.4 mg PO DAILY 05/31/25 05/31/25 Unknown tramadol 50 mg tablet 50 mg PO Q4H PRN Pain 05/31/25 05/31/25 Unknown Active Medications Generic Name Dose Route Start Last Admin Trade Name Freq PRN Reason Stop Dose Admin Allopurinol 100 mg 06/01/25 09:00 06/09/25 08:37 Allopurinol 100 Mg Tab PO 07/01/25 08:59 100 mg DAILY DAO Administration Aspirin 81 mg 06/01/25 09:00 06/09/25 08:35 Aspirin 81 Mg Chew PO 07/01/25 08:59 81 mg DAILY DAO Administration Atorvastatin Calcium 80 mg 06/01/25 09:00 06/09/25 08:36 Atorvastatin 40 Mg Tab PO 07/01/25 08:59 80 mg DAILY DAO Administration Duloxetine HCl 20 mg 06/01/25 09:00 06/09/25 08:36 Duloxetine Hcl 20 Mg Cap PO 07/01/25 08:59 20 mg DAILY DAO Administration Finasteride 5 mg 06/01/25 09:00 06/09/25 08:36 Finasteride 5 Mg Tab PO 07/01/25 08:59 5 mg DAILY DAO Administration Furosemide 40 mg 06/03/25 09:00 06/09/25 08:37 Furosemide 40 Mg Tab PO 07/03/25 08:59 40 mg DAILY DAO Administration Gabapentin 900 mg 06/07/25 21:00 06/09/25 08:36 Gabapentin 300 Mg Cap PO 07/07/25 20:59 900 mg BID DAO Administration Heparin Sodium (Porcine) 5,000 units 05/31/25 21:00 06/09/25 08:35 Heparin Sod 5,000 Unit/0.5 Ml Vial SQ 06/30/25 20:59 5,000 units Q12 DAO Administration Insulin Aspart 0 units 06/02/25 07:30 06/09/25 16:57 Insulin Aspart Per Unit Charge SC 07/02/25 07:29 5 units ACHS DAO Administration Insulin Glargine 5 units 06/07/25 11:30 06/09/25 08:34 Lantus Per Unit Charge SC 07/07/25 11:29 5 units DAILY DAO Administration Metoprolol Succinate 25 mg 06/01/25 09:00 06/09/25 08:37 Metoprolol Succ 25mg Ext Rel Tab PO 07/01/25 08:59 25 mg DAILY DAO Administration Miscellaneous 15 - 30 gm 05/31/25 11:45 06/05/25 21:00 Carbohydrates For Hypoglycemia PO 06/30/25 11:44 15 gm UD PRN Administration Hypoglycemia Protocol Polyethylene Glycol 17 gm 06/09/25 09:00 06/09/25 08:35 Polyethylene (Miralax) 17 Gm Pack PO 07/09/25 08:59 17 gm DAILY DAO Administration Quetiapine Fumarate 50 mg 05/31/25 21:00 06/08/25 21:13 Quetiapine Fumarate 25 Mg Tablet PO 06/30/25 20:59 50 mg HS DAO Administration Quetiapine Fumarate 25 mg 06/01/25 09:00 06/09/25 08:37 Quetiapine Fumarate 25 Mg Tablet PO 07/01/25 08:59 25 mg DAILY DAO Administration Sacubitril/Valsartan 0.5 tab 06/09/25 09:00 06/09/25 08:38 Valsartan/Sacubitril 26/24mg Tab PO 07/09/25 08:59 0.5 tab BID DAO Administration Senna/Docusate Sodium 1 tab 05/31/25 21:00 06/09/25 08:35 Docusate Sodium/Senna 50/8.6mg Tab PO 06/30/25 20:59 1 tab BID DAO Administration Spironolactone 25 mg 06/05/25 09:00 06/09/25 08:36 Spironolactone 25 Mg Tab PO 07/05/25 08:59 25 mg QAM DAO Administration Tamsulosin HCl 0.4 mg 06/01/25 09:00 06/09/25 08:37 Tamsulosin Hcl 0.4 Mg Cap PO 07/01/25 08:59 0.4 mg DAILY DAO Administration Tramadol HCl 50 mg 05/31/25 16:26 06/09/25 10:02 Tramadol Hcl 50 Mg Tablet PO 06/30/25 16:25 50 mg Q4H PRN Administration Pain
[2025-06-09] MEDS: POTASSIUM CHLORIDE 10 MEQ TABCR PO SCH (19:04)
[2025-06-09] MEDS: MAGNESIUM OXIDE 400 MG TAB PO SCH (19:04)
[2025-06-10 07:55] LABS: Anion Gap 6.0 (3-11); Blood Urea Nitrogen 29.0 mg/dl (6-23); Calcium 8.8 mg/dl (8.6-10.3); Carbon Dioxide 30.0 mmol/L (21-32); Chloride 100.0 mmol/L (98-107); Creatinine Clr Calc Pharmacy 79.6 ml/min; Glucose 186.0 mg/dl (70-99(Fasting)); Magnesium 2.0 mg/dl (1.7-2.4); Potassium 4.1 mmol/L (3.5-5.1); Sodium 136.0 mmol/L (136-145)
[2025-06-10 11:12] VITALS: BP 96/62; PULSE 82; RESP 19; TEMP 97.5; O2SAT 93
--- NOTE | 2025-06-10 14:20 | Discharge Summary ---
Date of Service June 10, 2025 Admission HPI Per Admitting Provider 65 yo M with PMHx of DM II, HTN, HLD, chronic systolic heart failure, CKD, BPH, gout, GERD, emphysema, PVD sent to [facility] from [facility] for the evaluation of elevated BG. Per scant documentation from facility, pt was recently being worked up for gout and was started on prednisone on 05/28 for 5 days (last dose to be on 06/01). He was then found to have urinary incontinence this morning as well as drowsiness. He was not able to articulate what was bothering him. He was similarly confused yesterday but his mentation improved. His BG this AM was 450 at the facility. In the ED, pt was found to have elevated potassium, BG in the 500s, A, elevated lactate to 5.2. Cr slight increase from 0.78 -> 1.21, BUN elevated 16 - > 42. Bicarb mild decrease to 22. Pt also noted to have abnormal LFTs as well as elevated troponin. He was found to have left lower extremity infected wound. He is started on zosyn in the ED. Pt is also started on insulin infusion. 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 Respiratory: normal respiratory effort, lungs clear to auscultation, no wheeze, rales, rhonchi. Normal insp/exp effort, no accessory muscle use Cardiovascular: RRR, no murmur, no edema Vessels: no JVD or carotid bruit Chest: normal inspection of chest Abdomen: normal bowel sounds, soft, nontender, no hepatosplenomegaly Musculoskeletal: Multiple open seen with lower extremity; bandages intact. Neurologic: PERRL, EOMI, accommodation nl, no face palsy, no dysarthria CN's II- XI intact bilaterally and moves all extremities Psychiatric: A+Ox3, euthymic affect Discharge Data Allergies Allergy/AdvReac Type Severity Reaction Status Date / Time cephalexin [From Keflex] Allergy Unknown Verified 06/07/25 01:33 duloxetine AdvReac Severe kidney Verified 06/07/25 01:33 stones dulaglutide [From Trulicity] AdvReac muscle Verified 06/07/25 01:33 aches empagliflozin AdvReac Pain in Verified 06/07/25 01:33 [From Jardiance] perineum lisinopril AdvReac Chest Pain Verified 06/07/25 01:33 losartan AdvReac Chest Pain Verified 06/07/25 01:33 Consultations 05/31/25 12:26 ED Decision to Admit Stat 05/31/25 16:26 Consult Infectious Diseases Routine 05/31/25 18:06 Consult Orthopedic Surgery Routine 06/01/25 13:49 Consult Vascular Surgery Routine Ordered Studies 05/31/25 10:55 CT head/brain wo con Stat 05/31/25 14:19 US arterial duplex LE BI Stat 05/31/25 14:29 CT leg [CT femur RT w con] Routine CT leg [CT tib/fib LT w con] Routine 06/02/25 07:43 US ankle brachial index [US ankle/brachial index ltd] Routine Hospital Course (1) Lower extremity ulceration: Plan Mr. Oreilly is a 65 year old gentleman with type II DM with HHS, HFrEF last EF less than 20%, diabetic ulcers, hypertension, hyperlipidemia admitted for elevated BSG in the 500s and elevated lactate suspicious for HHS. He was treated with an insulin drip on admission overnight and BSG's normalized, lactate down trended. Patient was noted to have BLE wounds and ulcers. Vascular was consulted and noted that his RUSSEL appear normal--he suspected the wounds on his posterior calves are more likely pressure related.There was no indication for intervention outside of local wound care and pressure offloading. Cardiology was consulted for NSVT. It was recommended he continue his therapies, stop clonidine and started on entresto and Spironolactone. #Type II DM, HHS suspect HHS precipitated by steroid use, possible medication noncompliance after being started on prednisone for gout flare HHS resolved. pH, bicarb, BSG all returned to goal Transitioned from gtt. 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 Layering fluid. No drainable fluid collection. No tissue gas Arterial Dopplers 05/31/2025 with bilateral severe infrapopliteal stenosis. Monophasic flow in the feet bilaterally Vascular surgery (Dr. Ibarra): No surgical intervention recommended at this time, encouraged offloading and therapy continue local wound care - wound care instructions placed at discharge #B/L foot pain, tenderness #history of DFI with possible cellulitis on admission Right foot is with erythema, no change from prior per patient. Continues to be generally tender, improving slightly when hung over the side of the bed. DDx includes cellulitis, gouty pain, and arterial insufficiency. CT is noted with diffuse edema without evidence of gas/drainable collection. Antibiotics have been continued for potential cellulitis. Concern for sluggish vascular flow and arterial insufficiency managed as noted ID consulted, pt was on Zosyn ->completed augmentin 06/06 #Chronic HFrEF #NSVT 03/2025 severely reduced LVEF 20-24% No acute chest pain/chest pressure, no evidence of ACS on admission Cardiolog consulted given NSVT on monitor: will need Cardiology follow up for OP consideration of ICD Continue metoprolol XL 25 mg daily -Home spironolactone increased -Report perineum pain with Jardiance--will hold starting at this time -Continue Entresto BID, newly started -Continue home furosemide Will need close cardiology follow up Patient was discharged to rehab. Please note the above document was generated using voice recognition software. It may contain grammatical, syntax or spelling errors. Any formal questions or concerns about the content, text or information contained within the body of this dictation should be directly addressed to the provider for clarification Total Time Total Time Spent Total Time Spent (In Minutes): 45 Total Time Includes: Examination of the Patient, Discharge Planning, Medication Reconciliation, Communication With Other Providers and Other Discharge Plan Discharge Items Patient Disposition: Transfer Inpatient Rehab Fac Reason For Visit: UNCONTROLLED BLOOD GLUCOSE Discharge Diagnosis: #Chronic lower extremity wounds Condition on Discharge: Fair Activity: Resume your previous activity Non-emergency contact: Primary Care Provider Call non-emergency contact if: you have any medication questions and your symptoms worsen Follow-up/Referrals: Js Brown [Primary Care Provider] - Diet: Regular Addtl Attending Provider Instructions: You were admitted to the hospital with high blood glucose and bilateral lower extremity wounds and ulcers. You are treated with antibiotics during the hospitalization. He was seen by vascular surgeon; they recommended pressure offloading of the foot and wound care for healing of the ulcers. Cardiology was also consulted and they recommended some medication changes. You are started on Entresto 0.5 mg tablets, spironolactone 25 mg once a day . Clonidine has been stopped. Please follow the wound care instruction closely as below: Clean and dry wounds with normal saline. To right posterior leg, apply slightly moistened aquacel ag, and tegaderm to foster autolytic debridement. Change every 3 days, or when aquacel ag becomes saturated. To the bilateral heels , apply optifoam change daily. Keep as much pressure off of heels as possible. To bilateral buttocks, apply barrier cream every 2 hours with repositioning and as needed. Keep as much pressure of this area as possible. To right 2nd dorsal toe, left lateral achilles, left posterior leg paint with betadine daily. May leave toe CLIENT DIRECTOR, cover achilles, and posterior leg with abd and kerlix daily. Recommend follow up with outpatient wound care center upon discharge. Pending Studies at Discharge: No Stand-Alone Forms: [facility] Skilled Items Patient informed of condition?: Yes DNR: No Discharge Level of Care: Skilled Communicable Disease: No Discharge Prognosis: Stable Lines: None Urinary Catheter: No Medications and DC Order Prescriptions: New spironolactone 25 mg Tablet 25 mg PO QAM 30 Days Qty: 30 0RF Entresto 24-26 mg Tablet 0.5 tab PO BID 30 Days Qty: 30 0RF Continued (DME) blood sugar diagnostic Strip See Rx Instructions .ROUTE .MEDSUPPLY Qty: 400 2RF Rx Instructions: As directed; 4 times daily (DME) blood-glucose meter Misc See Rx Instructions miscellaneous .MEDSUPPLY Qty: 1 0RF Rx Instructions: As directed (DME) lancets 30 gauge misc See Rx Instructions miscellaneous .MEDSUPPLY Qty: 100 0RF Rx Instructions: As directed quetiapine [Seroquel] 25 mg Tablet 50 mg PO HS Glucagon Emergency Kit 1 mg Kit 1 mg IM DAILY PRN (Reason: Hypoglycemia) Insta-Glucose 1 applic buccal DAILY PRN (Reason: Hypoglycemia) Milk of Magnesia 30 ml PO DAILY PRN (Reason: Constipation) quetiapine [Seroquel] 25 mg Tablet 25 mg PO DAILY Qty: 30 0RF furosemide 40 mg tablet 40 mg PO DAILY Qty: 30 0RF atorvastatin 80 mg tablet 80 mg PO DAILY Qty: 30 0RF acetaminophen 325 mg Tablet 650 mg PO Q6H PRN (Reason: Mild Pain (Scale Score 1-4)) Qty: 30 0RF repaglinide 2 mg Tablet 1 mg PO .DAILY BEFORE MEALS Qty: 30 0RF Rx Instructions: administer within 30 minutes of a meal or snack sennosides-docusate sodium [Senna-S] 8.6-50 mg Tablet 1 tab-cap PO BID Qty: 60 0RF tamsulosin 0.4 mg capsule 0.4 mg PO DAILY Qty: 30 0RF bisacodyl [Dulcolax (bisacodyl)] 10 mg Suppository 10 mg WI DAILY PRN (Reason: Constipation) Qty: 30 0RF metformin 1,000 mg tablet 1,000 mg PO Q12 Qty: 30 0RF aspirin 81 mg tablet,chewable 81 mg PO DAILY Qty: 30 0RF metoprolol succinate 25 mg Tablet Extended Release 24 Hr 25 mg PO DAILY Qty: 30 0RF colchicine 0.6 mg tablet 0.6 mg PO Q12H PRN (Reason: gout flare) Qty: 10 0RF finasteride 5 mg tablet 5 mg PO DAILY Qty: 30 0RF duloxetine 20 mg Capsule,Delayed Release(Dr/Ec) 20 mg PO DAILY Qty: 30 0RF insulin glargine [Lantus Solostar U-100 Insulin] 100 unit/mL (3 mL) Insulin Pen 10 unit SUBCUT DAILY Qty: 15 0RF Enema 19-7 gram/118 mL Enema 118 ml WI DAILY PRN (Reason: Constipation) Qty: 30 0RF Changed allopurinol 100 mg tablet 100 mg PO DAILY Qty: 30 0RF gabapentin [Neurontin] 800 mg tablet 800 mg PO BID Qty: 60 0RF tramadol 50 mg Tablet 50 mg PO Q8H PRN (Reason: Pain) Qty: 10 0RF magnesium oxide 500 mg capsule 400 mg PO DAILY Qty: 30 0RF Discontinued acetaminophen 325 mg Tablet 650 mg PO Q6H PRN (Reason: temp>101) prednisone 10 mg Tablet 10 mg PO .DAILY FOR 4 DAYS Patient Comments: start 05/28 end 06/01 clonidine 0.2 mg/24 hr patch weekly 0.2 mg transdermal .Q SUNDAY spironolactone 25 mg tablet 12.5 mg PO DAILY capsaicin 0.1 % Cream 1 applic TOPICAL .DAILY FOR 10 DAYS Patient Comments: start 05/26 end 06/05 Rx Instructions: do not wash area for at least 30 min after application carisoprodol [Soma] 350 mg tablet 350 mg PO Q6H PRN (Reason: muscle pain) Discharge Orders: Discharge Order (Routine); Ordered 06/10/25 Ordered By: Jam Martínez Admission Data Admit Date/Time: 05/31/25 14:19 Attending Provider: Jam Martínez Admit Provider: Carmen Travis Primary Care Provider: Js Brown Other Providers: [facility]; Laya Casiano [place]; Carmen Travis; Luca Ferguson; Casey Ibarra
== END 2025-06-10 18:29 | DRG 638 ==
LOC: ED 10:33 → 2S 14:19 → SUATTDRO 14:19 → 2S 15:49